=== PATIENT | female | born 1945 | race Caucasian/White ===

== ENCOUNTER 2018-06-25 22:52 | Inpatient (IN) | payer OTHER ==
[2018-06-25 23:11] VITALS: BMI 42.0
[2018-06-25] MEDS ORDERED: dilTIAZem HCL 50 MG/10 ML - 10 ML VIAL IVPUSH ONE (23:23)
--- NOTE | 2018-06-25 23:23 | PDOC ---
Attending Attestation - HPI HPI: 06/26/18 02:01 EXAM: Right lower extremity duplex venous ultrasound HISTORY: Right leg pain COMPARISON: None. FINDINGS: Negative for right lower extremity deep venous thrombosis Read By: Victor Hugo Duffy MD <Isamar Solomon - Last Filed: 06/26/18 02:01> - Resident Resident Name: Vanessa Soliman - ED Attending Attestation I have performed the following: I have examined & evaluated the patient, The case was reviewed & discussed with the resident, I agree w/resident's findings & plan, Exceptions are as noted - HPI HPI: 06/26/18 02:45 The patient is a 73 year old female with a significant past medical history of hypertension and pre-diabetes who presents to the emergency department with shortness of breath for about 1 hour. The patient reports some associated palpitations, lightheadedness and shortness of breath. She states that she has been sick for the past week with some respiratory symptoms. She denies any abdominal pain, history of blood clots, surgeries or recent immobilities. She denies any other symptoms. She denies any fever, chills, nausea, vomiting, diarrhea, constipation or urinary symptoms. She denies any chest pain, headache or dizziness. The patient denies any other complaints. - Physicial Exam PE: 06/26/18 02:46 agree with resident exam - Medical Decision Making 06/26/18 04:15 73-year-old female with a history of hypertension, diabetes presents emergency Department with 1 hour of shortness of breath, palpitations in the setting of recent upper respiratory symptoms. Patient found to be in new onset atrial fibrillation. Rate controlled with diltiazem 20mg IV followed by 30mg PO. Labs with neg trop, elevated BNP. CXR was cardiomegaly. US LE done due to complaint of unilateral leg pain, neg for DVT. Due to some desaturations to 90%, CTA was obtained to r/o PE. NEgative for large PE but consistent with CHF. Case discussed with admitting resident by Dr. Soliman, admitted to Dr. Bowen. Case discussed in detail with admitting physician including history, physical exam and ancillary studies. Admitting physician has assumed care for the patient, will follow all pending diagnostics and will complete the evaluation and treatment. <Jose Antonio Jordan - Last Filed: 06/26/18 04:17> Heart Score/ECG Review #1 06/26/18 02:46 Twelve-lead EKG was performed and reviewed by me. Atrial fibrillation with rapid ventricular response, rate 133. Normal axis. No ST elevations. <Jose Antonio Jordan - Last Filed: 06/26/18 04:17> Attestations - Attestations 06/26/18 02:02 Documentation prepared by Isamar Solomon, acting as medical record coder for Jose Antonio Jordan MD. <Isamar Solomon - Last Filed: 06/26/18 02:01>
--- NOTE | 2018-06-25 23:23 | PDOC ---
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 She has been feeling under the weather for the past week or so with URI symptoms, but about one hour ago she began having SOB unlike anything she has experienced before, along with pounding heart beat and lightheadedness. She notes exacerbated chronic RLE pain which she believed initially was from her osteoarthritis. She denies LOC, HERRMANN, f/c/n/v/d/c, dysuria , chest pain, cough, abdominal pain, back pain, etc. Past History - Past Medical History Allergies/Adverse Reactions: Allergies Allergy/AdvReac Type Severity Reaction Status Date / Time apple AdvReac Verified 08/26/15 04:38 pear AdvReac Verified 08/26/15 04:38 Home Medications: Ambulatory Orders Amlodipine Besylate [Norvasc -] 5 mg PO DAILY 06/26/18 Cyclobenzaprine HCl [Flexeril -] 10 mg PO HS 06/26/18 Escitalopram Oxalate [Lexapro -] 10 mg PO DAILY 06/26/18 Atenolol [Tenormin -] 100 mg PO DAILY #30 tablet 06/28/18 Ferrous Sulfate 325 mg PO DAILY #30 tablet 06/28/18 Furosemide [Lasix] 40 mg PO DAILY #30 tablet 06/28/18 Lisinopril [Prinivil] 2.5 mg PO DAILY #30 tablet 06/28/18 Miscellaneous Medical Supply [Outpatient Order] 1 each ASDIR #1 misc Warfarin Sodium [Coumadin] 5 mg PO DAILY #30 tablet 06/28/18 COPD: No Diabetes: Yes (NIDDM) HTN: Yes - Suicide/Smoking/Psychosocial Hx Smoking History: Never smoked Have you smoked in the past 12 months: No Information on smoking cessation initiated: No Hx Alcohol Use: No Drug/Substance Use Hx: No Substance Use Type: None Review of Systems - Review of Systems Able to Perform ROS?: Yes Comments:: 06/26/18 00:30 GEN: no fever, chills, malaise, generalized weakness, or weight change HEENT: no ear pain, sore throat, vision change, or eye pain CV: palpitations, lightheadedness, no chest pain, syncope, or edema RESP: SOB, no cough, no wheezing GI: no abdominal pain, nausea, vomiting, diarrhea, constipation, or white/black/ bloody stool : no dysuria, hematuria, incontinence, retention, bleeding, or discharge MSK: no neck/back pain, muscle weakness/pain, or joint swelling/pain NEURO: no headache, seizure, vertigo, numbness, tingling, or focal weakness PSYCH: no substance use, no behavior change SKIN: no jaundice, no rash ROS otherwise negative except as noted in HPI *Physical Exam - Vital Signs Last Vital Signs Temp Pulse Resp BP Pulse Ox 98.7 F 96 H 18 136/85 96 06/28/18 15:23 06/28/18 15:23 06/28/18 15:23 06/28/18 15:23 06/28/18 09:00 - Physical Exam Comments: 06/26/18 01:20 GENERAL: uncomfortable and a bit anxious appearing, morbidly obese, A/Ox4, mild distress, answers questions appropriately HEENT: PERRLA, EOMI, moist mucous membranes NECK/BACK: no midline ttp, no spinal stepoff or deformity, no hematoma, full ROM , neck supple CARDIOVASCULAR: irregularly irregular and tachycardic, normal S1S2, no MGR, strong peripheral pulses, capillary refill <2 seconds, extremities wwp, no edema LUNGS/RESPIRATORY: no respiratory distress, CTAB GI/ABDOMEN: symmetric [id number], normoactive BS, soft, no ttp, no midline pulsatile masses : no CVA tenderness EXTREMITIES: no muscle atrophy, no acute deformity, no edema SKIN: warm and dry, no pallor, no jaundice, no rash, no bruising, no skin breakdown, no cuts, no lesions NEUROLOGICAL: GCS 15, CN II-XII grossly intact, 5/5 strength proximally and distally, no facial droop Heart Score/ECG Review - ECG Intrepretation Comment:: A-fib with RVR, rate 133, normal axis, no ischemic ST-T changes Moderate Sedation - Procedure Monitoring Vital Signs: Procedure Monitoring Vital Signs Temperature 98.7 F 06/28/18 15:23 Pulse Rate 96 H 06/28/18 15:23 Respiratory Rate 18 06/28/18 15:23 Blood Pressure 136/85 06/28/18 15:23 O2 Sat by Pulse Oximetry (%) 96 06/28/18 09:00 ED Treatment Course - LABORATORY CBC & Chemistry Diagram: 06/28/18 05:30 06/28/18 05:30 - ADDITIONAL ORDERS Additional order review: 06/25/18 06:38 Urine Culture - Final Urine - Urine Clean Catch 06/26/18 02:50 RBC 3.45 L MCV 78.1 L MCHC 31.5 L RDW 18.7 H MPV 8.1 Neutrophils % 69.0 Lymphocytes % 21.6 Monocytes % 7.2 Eosinophils % 1.6 Basophils % 0.6 - RADIOLOGY Radiology Studies Ordered: Category Date Time Status CHEST X-RAY PORTABLE* [RAD] Stat Radiology 06/26/18 00:26 Completed DUPLEX VASCUL US-1 LEG [US] Stat Ultrasound 06/26/18 00:30 Completed - Medications Given in the ED: ED Medications Discontinued Medications Generic Name Dose Route Start Last Admin Trade Name Freq PRN Reason Stop Dose Admin Acetaminophen 1,000 mg 06/26/18 00:17 06/26/18 00:38 Ofirmev Injection - IVPB 06/26/18 00:18 1,000 mg ONCE ONE Administration Amlodipine Besylate 5 mg 06/27/18 10:00 06/27/18 10:11 Norvasc - PO 5 mg DAILY JOSE J Administration Apixaban 5 mg 06/26/18 13:45 06/26/18 17:10 Eliquis - PO Not Given BID JOSE J Atenolol 100 mg 06/26/18 13:30 06/28/18 10:28 Tenormin - PO 100 mg DAILY JOSE J Administration Benzocaine/Menthol 1 each 06/28/18 11:00 06/28/18 11:18 Cepacol Lozenge - MM 1 each PRN PRN Administration SORE THROAT Cyclobenzaprine HCl 10 mg 06/26/18 22:00 06/27/18 22:11 Flexeril - PO 10 mg HS JOSE J Administration Diltiazem HCl 20 mg 06/25/18 23:23 06/26/18 00:05 Cardizem Injection - IVPUSH 06/25/18 23:24 20 mg ONCE ONE Administration Diltiazem HCl 30 mg 06/26/18 00:18 06/26/18 00:38 Cardizem Injection - IVPUSH 06/26/18 00:19 Not Given ONCE ONE Diltiazem HCl 30 mg 06/26/18 00:20 06/26/18 00:38 Cardizem - PO 06/26/18 00:21 30 mg ONCE ONE Administration Enoxaparin Sodium 100 mg 06/26/18 06:15 06/26/18 06:55 Lovenox - SQ 100 mg Q12H JOSE J Administration Enoxaparin Sodium 100 mg 06/26/18 22:00 06/27/18 10:11 Lovenox - SQ 100 mg Q12H JOSE J Administration Enoxaparin Sodium 100 mg 06/27/18 22:00 06/28/18 10:28 Lovenox - SQ 100 mg BID JOSE J Administration Escitalopram Oxalate 10 mg 06/27/18 10:00 06/28/18 10:28 Lexapro - PO 10 mg DAILY JOSE J Administration Furosemide 20 mg 06/26/18 04:12 06/26/18 04:28 Lasix Injection - IVPUSH 06/26/18 04:13 20 mg ONCE ONE Administration Furosemide 40 mg 06/26/18 09:25 06/26/18 09:58 Lasix Injection - IVPUSH 06/26/18 09:26 40 mg ONCE ONE Administration Furosemide 40 mg 06/27/18 10:00 06/28/18 10:27 Lasix Injection - IVPUSH 40 mg DAILY JOSE J Administration Influenza Virus Vaccine Quadrival 60 mcg 06/27/18 10:00 06/27/18 10:43 Flulaval Quad 2085-4040 IM 06/27/18 10:01 60 mcg .ONCE ONE Administration Insulin Aspart 1 vial 06/26/18 07:00 06/28/18 18:00 Novolog Vial Sliding Scale - SQ Not Given [facility] Protocol Lisinopril 2.5 mg 06/27/18 13:45 06/27/18 14:23 Prinivil PO 06/27/18 13:46 2.5 mg ONCE ONE Administration Lisinopril 2.5 mg 06/28/18 10:00 06/28/18 10:28 Prinivil PO 2.5 mg DAILY JOSE J Administration Lorazepam 1 mg 06/26/18 04:15 06/26/18 04:28 Ativan - PO 06/26/18 04:16 1 mg ONCE ONE Administration Metoprolol Succinate 25 mg 06/26/18 10:00 06/26/18 10:58 Toprol Xl - PO 25 mg DAILY JOSE J Administration Potassium Chloride 40 meq 06/26/18 18:33 06/26/18 20:14 K-Dur - PO 06/26/18 18:34 40 meq ONCE ONE Administration Potassium Chloride 20 meq 06/28/18 11:30 06/28/18 11:19 K-Dur - PO 06/28/18 11:31 20 meq ONCE ONE Administration Sodium Chloride 1,000 ml 06/25/18 23:25 06/25/18 23:54 Normal Saline - IV 06/25/18 23:26 1,000 ml ONCE ONE Administration Warfarin Sodium 7.5 mg 06/26/18 18:00 06/26/18 17:10 Coumadin - PO 06/26/18 18:01 7.5 mg ONCE@1800 ONE Administration Warfarin Sodium 7.5 mg 06/27/18 18:00 06/27/18 17:53 Coumadin - PO 06/27/18 18:01 7.5 mg ONCE ONE Administration Warfarin Sodium 5 mg 06/28/18 18:14 06/28/18 18:36 Coumadin - PO 06/28/18 18:15 5 mg NOW ONE Administration Medical Decision Making - Medical Decision Making Adult female Pt p/w rapid palpitations. Initial Vital Signs Temp Pulse Resp BP Pulse Ox 98.2 F 112 H 25 H 177/79 H 96 06/25/18 23:04 06/25/18 23:04 06/25/18 23:04 06/25/18 23:04 06/25/18 23:04 Exam: As noted in Physical Exam section. DDX IBNLT: sinus tachycardia, tachyarrhythmia (e.g. most likely A-fib with RVR, AFL, or SVT), ischemia (ACS), structural heart condition, anemia, PE, infection , metabolic, thyroid condition, catecholamine surge, medication effect, etc. W/U ordered: Monitor EKG CXR Labs as noted below EKG: Reviewed; results as noted in ECG Review section. 06/26/18 00:07 20 mg diltiazem IVPUSH given, will re-assess the patient's HR and BP. 06/26/18 00:18 Pt's rate now in the 90s. 30 mg PO ordered. Vital Signs Temperature 98.2 F 06/25/18 23:04 Pulse Rate 100 H 06/26/18 00:25 Respiratory Rate 17 06/26/18 00:25 Blood Pressure 142/85 06/26/18 00:25 O2 Sat by Pulse Oximetry (%) 99 06/26/18 00:25 CXR: Cardiomegaly US/DUPLEX VASCUL US-1 LEG Right lower extremity pain. Shortness of breath. Right lower extremity Doppler venous ultrasound. Grayscale, pulsed Doppler and color Doppler interrogation of the right lower extremity deep venous system was performed. The right common femoral vein, superficial femoral vein, popliteal and posterior tibial vein were identified with a normal phasic waveform, adequate compressibility and adequate response to augmentation. Visualized portion of the greater saphenous and deep femoral vein are patent No Schultz's cyst is identified in the popliteal fossa. Impression: There is no evidence of deep venous thromboses in the right lower extremity. Note is made of soft tissue edema/swelling right leg A preliminary report was forwarded by the [facility] service, [employer] CT/CHEST CTA Chest CT angiography CLINICAL INFORMATION: evaluate for pulmonary embolism Multiplanar imaging was performed following the intravenous administration of nonionic contrast. No prior CT studies are available at this facility for direct comparison. There is no discrete embolus involving the central pulmonary arterial vasculature. Evaluation of the segmental and subsegmental branches is very limited due to respiratory motion artifact. Interlobular septal line thickening is seen within the lower lobes consistent with interstitial vascular congestion. Small right-sided and very small left- sided pleural effusions are seen. There is mild bilateral flank subcutaneous edema. Multichamber cardiomegaly is noted. Refluxed contrast is seen within the inferior vena cava and hepatic veins probably secondary to cardiac dysfunction. The main pulmonary artery is mildly dilated with a 3.2 cm diameter suggestive of possible increased pulmonary arterial pressure. Focal alveolar opacity is seen within the superior segment of the left lower lobe. Several nonspecific right upper lobe anterior and posterior segment noncalcified pulmonary nodules are noted the most prominent measuring 1.7 cm in diameter. There is borderline fusiform aneurysmal dilatation of the ascending aorta with a 4.[address] evidence of aortic dissection. Several mildly prominent mediastinal lymph nodes are seen which may be hyperplastic in nature. The visualized osseous structures demonstrate no obvious acute pathology. The exam partially images the upper abdomen. The spleen is mildly enlarged measuring 13.3 cm in length. The caudate lobe of the liver appears mildly prominent - ? possible cirrhosis. A 1.4 cm right renal upper pole hyperdense cortical cyst noted. IMPRESSION: No CT evidence of central pulmonary embolism. Evaluation of the peripheral vasculature is quite limited due to respiratory motion artifact. Interstitial pulmonary vascular congestion is noted with small bilateral pleural effusions, cardiomegaly, mild bilateral flank subcutaneous edema. Mildly dilated main pulmonary artery suggestive of increased pulmonary arterial pressure. There is focal opacity within the superior segment of the left lower lobe which may be on the basis of a small infiltrate versus localized edema. Clinical/laboratory correlation is suggested. Several nonspecific right upper lobe pulmonary nodules are noted the most prominent measuring 1.7 cm. Correlation with 2 month follow-up CT is suggested and comparison with prior CT studies if available from a different facility. Minimal to mild splenomegaly. Mild prominence of the caudate lobe of liver - ? possible cirrhosis. There is partial imaging of a 1.4 cm right renal upper pole hyperdense cyst. Correlate with 2 month follow-up CT. Laboratory Tests 06/25/18 06/25/18 06/25/18 23:36 23:36 23:36 WBC RBC Hgb Hct MCV MCH MCHC RDW Plt Count MPV Absolute Neuts (auto) Neutrophils % Lymphocytes % Monocytes % Eosinophils % Basophils % Nucleated RBC % PT with INR INR VBG pH 7.32 POC VBG pCO2 39.5 POC VBG pO2 34.0 Mixed VBG HCO3 19.6 Sodium 143 Potassium 3.9 Chloride 115 H Carbon Dioxide 20 L Anion Gap 8 BUN 23 H Creatinine 1.1 Creat Clearance w eGFR 48.42 Random Glucose 155 H Calcium 8.0 L Phosphorus 2.9 Magnesium 2.3 Total Bilirubin 0.4 AST 27 ALT 32 Alkaline Phosphatase 123 H Creatine Kinase 92 Troponin I < 0.02 B-Natriuretic Peptide 3562.8 H Total Protein 7.3 Albumin 3.2 L Blood Type Antibody Screen 06/25/18 06/26/18 06/26/18 23:36 02:50 02:50 WBC 6.5 RBC 3.45 L Hgb 8.5 L Hct 26.9 L MCV 78.1 L MCH 24.6 L MCHC 31.5 L RDW 18.7 H Plt Count 234 MPV 8.1 Absolute Neuts (auto) 4.5 Neutrophils % 69.0 Lymphocytes % 21.6 Monocytes % 7.2 Eosinophils % 1.6 Basophils % 0.6 Nucleated RBC % 0 PT with INR 13.00 INR 1.10 H VBG pH POC VBG pCO2 POC VBG pO2 Mixed VBG HCO3 Sodium Potassium Chloride Carbon Dioxide Anion Gap BUN Creatinine Creat Clearance w eGFR Random Glucose Calcium Phosphorus Magnesium Total Bilirubin AST ALT Alkaline Phosphatase Creatine Kinase Troponin I B-Natriuretic Peptide Total Protein Albumin Blood Type O NEGATIVE Antibody Screen Negative Reassessment: Patient states improved after Ativan, respirations calm. Vital Signs Temperature 98.2 F 06/25/18 23:04 Pulse Rate 112 H 06/26/18 04:29 Respiratory Rate 22 H 06/26/18 04:29 Blood Pressure 129/88 06/26/18 04:29 O2 Sat by Pulse Oximetry (%) 95 06/26/18 05:59 Lasix 20 mg IV push ordered. Patient still anxious and Ativan PO ordered. The Pt is unsafe for discharge at this time. She requires further hospital observation, workup, and treatment. Microblog sent to [facility] for admission. Blank Decision to Admit order is placed per ED protocol. Spoke with admitting team life assurance representative John Thomas. Patient admitted to Dr. Bowen, Tele. 07/08/18 22:29 *DC/Admit/Observation/Transfer Diagnosis at time of Disposition: Atrial fibrillation with rapid ventricular response CHF (congestive heart failure) Qualifiers: Heart failure type: unspecified Heart failure chronicity: unspecified Qualified Code(s): I50.9 - Heart failure, unspecified - Discharge Dispostion Disposition: HOME Condition at time of disposition: Improved Decision to Admit order: Yes - Prescriptions - Referrals - Patient Instructions - Post Discharge Activity
[2018-06-25] MEDS ORDERED: SODIUM CHLORIDE 0.9% 500 ML INFUS.BAG IV ONE (23:25)
[2018-06-25 23:52] LABS: VENOUS PC02 39.5 mmHg (38-52); VENOUS PH 7.32 (7.32-7.42)
[2018-06-26] MEDS ORDERED: ACETAMINOPHEN 1000 MG/100 ML VIAL (NON FORMULARY) IVPB ONE (00:17)
[2018-06-26] MEDS ORDERED: dilTIAZem HCL 50 MG/10 ML - 10 ML VIAL IVPUSH ONE (00:18)
[2018-06-26] MEDS ORDERED: dilTIAZem HCL 30 MG TABLET (FP) PO ONE (00:20)
[2018-06-26 02:10] LABS: ALBUMIN 3.2 g/dl (3.4-5.0); ALK PHOS 123 U/L (45-117); ANION GAP 8 MMOL/L (8-16); BILIRUBIN,TOTAL 0.4 mg/dL (0.2-1); BLOOD UREA NITROGEN 23 mg/dL (7-18); CHLORIDE 115 mmol/L (98-107); CO2 20 mmol/L (21-32); CREATININE 1.1 mg/dL (0.55-1.3); GLUCOSE,RANDOM 155 mg/dL (74-106); MAGNESIUM 2.3 mg/dL (1.8-2.4); PHOSPHOROUS 2.9 mg/dL (2.5-4.9); POTASSIUM 3.9 mmol/L (3.5-5.1); SGOT/AST 27 U/L (15-37); SGPT/ALT 32 U/L (13-61); SODIUM 143 mmol/L (136-145); TOT PROT 7.3 g/dl (6.4-8.2)
[2018-06-26 03:03] LABS: BASO % 0.6 % (0-2.0); EOS % 1.6 % (0-4.5); HEMATOCRIT 26.9 % (32.4-45.2); HEMOGLOBIN 8.5 GM/dL (10.7-15.3); LYMPH % 21.6 % (8-40); MCH 24.6 pg (25.7-33.7); MCHC 31.5 g/dl (32.0-36.0); MEAN CELL VOLUME 78.1 fl (80-96); MEAN PLT VOLUME 8.1 fl (7.5-11.1); MONO % 7.2 % (3.8-10.2); PLATELET COUNT 234 K/MM3 (134-434); RBC 3.45 M/mm3 (3.60-5.2); RDW 18.7 % (11.6-15.6); WHITE BLOOD COUNT 6.5 K/mm3 (4.0-10.0)
[2018-06-26 03:19] LABS: INR 1.1 (0.83-1.09)
[2018-06-26] MEDS ORDERED: FUROSEMIDE 40 MG/4 ML INJECTABLE VIAL IVPUSH ONE ×2 (04:12→09:25)
[2018-06-26] MEDS ORDERED: LORazepam 1 MG TABLET PO ONE (04:15)
--- NOTE | 2018-06-26 04:59 | PN ---
Teaching Attending Note Name of Resident: Ezra Thomas ATTENDING PHYSICIAN STATEMENT I saw and evaluated the patient. I reviewed the resident's note and discussed the case with the resident. I agree with the resident's findings and plan as documented. SUBJECTIVE: Seen and examined; please see resident note for further documentation. Briefly , this is a 73 y/o female presenting to the ER with lightheadedness, SOB, etc. Denies current chest pain. PMH ivolves preDM, obesity, HTN. She has never seen a cloth opener hand, no prior cardiac records at our facility, etc. She is found to be in afib with RVR with an elevated BNP that is likely rate related, though cardiomegaly is seen on imaging. She is found to have b/l pleural effusions R>L. 10 sys ROS done and negative aside from HPI PMH and PSH reviewed FH asked and noncontributory Socially no alcohol or drug abuse Medication list reviewed; reconciliation pending OBJECTIVE: VS, labs, imaging reviewed NAD, AAO, on 1L via NC Irregularly irregular and tachy to 100-110 on monitor, no lovely mgr Lungs with mild crackles, habitus limits exam, w/ sym exp NT ND +BS Trace LE edema, good pulses CN2-12 wnl, no fnd Normal mood, appropriate affect Labs show H/H 8/26 with MCV low at 78. VBG wnl. Coags reviewed. Cl 115, Co 20. BUN 23. Alk phos slightly elevated at 123 with BNP 3562. Imaging shows negative RLE US with CTA with contrast reflux ?CHF alongside R>L pleural effusion and R-sided lung nodules (larges 1.7cm) that radiology recommended be evaluated for malignancy EKG reviewed Tele reviewed Echo pending ASSESSMENT AND PLAN: Patient presents with SOB and lightheadedness found to have afib with RVR 1) Afib with RVR, elevated CV2 score -Seen on EKG, noted on exam. HR better controlled but still 100-110. -Given the fact that she has cardiomegaly and elevated BNP we would like to avoid a negative inotrope. Will do IV Metoprolol Tartrate and get HR <100 then titrate to PO. Can switch to long acting prior to DC. -Check echo to r/o valvular afib, etc. Check TSH. -Need for AC endorsed; 1mg/kg lovenox BID then convert to NOAC if no valve pathology noted -Consider CV consultation in the AM; monitor on telemetry 2) Microcytic Anemia -Check iron studies, retic count, FOBT 3) H/O HTN -Hold PO agents while titrating antiarrhythmics if can avoid 4) DM -Check A1c, SSI 5) Elevated BNP with +O2 requirement -Cardiomegaly noted; rate-related changes entirely possible. Reflux of contrast noted on CTA which is seen in CHF. -Got 1L fluid with a push of IV lasix in the ER; clouds picture especially given the elevated Cl, BUN with low CO2 now on BMP. Will repeat BMP now to revisit how her chemistry has settled then diurese if she will tolerate. -Lowest she gets on RA is 89-90%; should also consider CELENA eval as OP, etc. -Check echo to r/o cardiac dysfunction 6) R-lung nodules -Followup final report; prelim report recommended neoplastic workup 7) Pleural effusion -R>L; incidentally R-lung with aformentioned nodules. -Diurese per #5; consider other causes. Followup final report then revisit possibility of further studies 8) Mildly elevated Alk Phos -Only slightly over upper limit of normal which can be seen incidentally in geriatric population -Followup repeat LFTs, no need for urgent imaging, etc. Full Code
--- NOTE | 2018-06-26 05:40 | HP ---
<Paz Marcos - Last Filed: 06/26/18 07:00> CHIEF COMPLAINT: SOB PCP: None HISTORY OF PRESENT ILLNESS: 73 y/o F with PMHx of HTN, NIDDM presents with SOB. Patient is primarily northern irish speaking and the sample collector phone was used (Christel [phone]). Patient has had a URI for the past 2 weeks that presented with Cough productive of brown /yellow phlegm, Fever, chills and nausea. About 4-5 days ago, patient began to experience SOB with laying down. This is the first time she has experienced. Patient has increased the amount of pillows she uses to sleep and recently has noticed decreased exercise tolerance. Additionally has experienced Dizziness, lightheadedness, headache, chronic Right lower extremity pain. Denies any recent Chest pain, vomiting, diarrhea, constipation. Of note, patient has not seen her PCP in 3 years and is noncompliant with her medications. 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 Ambulation: Walker Residence: With a Friend Family History: HTN, [place], Parkinsons Allergies apple Adverse Reaction (Verified 08/26/15 04:38) pear Adverse Reaction (Verified 08/26/15 04:38) HOME MEDICATIONS: Home Medications Medication Instructions Recorded Atenolol [Tenormin -] 100 mg PO DAILY 08/26/15 Azithromycin [Zithromax Z-KING (5 250 mg PO ASDIR #6 tablet 08/26/15 DAYS) -] Cyclobenzaprine HCl [Flexeril -] 10 mg PO TID 08/26/15 Lisinopril/Hydrochlorothiazide 1 each PO DAILY 08/26/15 [Lisinopril-Hctz 20-25 mg Tab] Metformin HCl [Glucophage] 0 mg PO DAILY 08/26/15 Omeprazole Magnesium [Prilosec 0 mg PO DAILY 08/26/15 (OTC)] REVIEW OF SYSTEMS As per HPI PHYSICAL EXAMINATION Vital Signs - 24 hr 06/25/18 06/26/18 06/26/18 23:04 00:25 04:29 Temperature 98.2 F Pulse Rate 112 H Pulse Rate [ 100 H 112 H Apical] Respiratory 25 H 17 22 H Rate Blood Pressure 177/79 H Blood Pressure 142/85 129/88 [Left] O2 Sat by Pulse 96 99 98 Oximetry (%) GENERAL: A&Ox3, NAD, sitting with HOB elevated HEAD: NCAT EYES: PERRL, EOMI EARS, NOSE, THROAT: Oropharynx clear without exudates. Moist mucous membranes. NECK: Mild JVD LUNGS: Bibasilar Crackles, Upper Lobe rhonchi HEART: Tachycardic, Irregularlly Irregular, normal S1 and S2 without murmur ABDOMEN: Obese, Soft, nontender, not distended, + bowel sounds, no guarding EXTREMITIES: 2+ pulses, 1+ pitting edema NEUROLOGICAL: Cranial nerves II-XII intact. Normal speech. SKIN: Warm, dry. Lower extremity varicose veins with stasis dermatitis Laboratory Results - last 24 hr 06/25/18 06/25/18 06/25/18 23:36 23:36 23:36 WBC RBC Hgb Hct MCV MCH MCHC RDW Plt Count MPV Absolute Neuts (auto) Neutrophils % Lymphocytes % Monocytes % Eosinophils % Basophils % Nucleated RBC % PT with INR INR VBG pH 7.32 POC VBG pCO2 39.5 POC VBG pO2 34.0 Mixed VBG HCO3 19.6 Sodium 143 Potassium 3.9 Chloride 115 H Carbon Dioxide 20 L Anion Gap 8 BUN 23 H Creatinine 1.1 Creat Clearance w eGFR 48.42 Random Glucose 155 H Calcium 8.0 L Phosphorus 2.9 Magnesium 2.3 Total Bilirubin 0.4 AST 27 ALT 32 Alkaline Phosphatase 123 H Creatine Kinase 92 Troponin I < 0.02 B-Natriuretic Peptide 3562.8 H Total Protein 7.3 Albumin 3.2 L Blood Type Antibody Screen 06/25/18 06/26/18 06/26/18 23:36 02:50 02:50 WBC 6.5 RBC 3.45 L Hgb 8.5 L Hct 26.9 L MCV 78.1 L MCH 24.6 L MCHC 31.5 L RDW 18.7 H Plt Count 234 MPV 8.1 Absolute Neuts (auto) 4.5 Neutrophils % 69.0 Lymphocytes % 21.6 Monocytes % 7.2 Eosinophils % 1.6 Basophils % 0.6 Nucleated RBC % 0 PT with INR 13.00 INR 1.10 H VBG pH POC VBG pCO2 POC VBG pO2 Mixed VBG HCO3 Sodium Potassium Chloride Carbon Dioxide Anion Gap BUN Creatinine Creat Clearance w eGFR Random Glucose Calcium Phosphorus Magnesium Total Bilirubin AST ALT Alkaline Phosphatase Creatine Kinase Troponin I B-Natriuretic Peptide Total Protein Albumin Blood Type O NEGATIVE Antibody Screen Negative ASSESSMENT/PLAN: 73 y/o F with PMHx of HTN, NIDDM presents with SOB #SOB -Likely due to new onset Atrial Fibrillation -EKG: AFib with RVR, VR 133 -[id number] 3 -Lovenox 100mg Q12H (1mg/kg), Can switch to NOAC if Echo does not reveal valvular pathology -IV Lopressor 5mg Q4H PRN for HR > 100 -Continue home dose lisinopril 20mg -Echo, TSH Pending -Monitor on Tele -Cardiology (Dr. Resendiz) Consulted -Would likely benefit from [facility]LE[facility] Evaluation #Microcytic Anemia -Basic Iron Studies, Retic count #DM -A1c pending -ISS BGMs ACHS #Lung Nodules -Shown on Prelim Report; Further workup pending final report #FEN -PO FLuids -Lytes WNL -NPO #PPx -DVT: Lovenox Dispo: Admit to Tele, will need med-rec Visit type - Emergency Visit Emergency Visit: Yes ED Registration Date: 06/26/18 Care time: The patient presented to the Emergency Department on the above date and was hospitalized for further evaluation of their emergent condition. - New Patient This patient is new to me today: Yes Date on this admission: 06/26/18 - Critical Care Critical Care patient: No <Loy Bowen - Last Filed: 07/08/18 19:44> Seen and examined;agree with all the above aside form as edited by me in my own note. Thank you. Was present for all vital parts of encounter; plan discussed with me. Agree with above as documented by the resident.
[2018-06-26] MEDS ORDERED: ENOXAPARIN NA (PORCINE) 100 MG/1 ML DISP.SYRIN SQ SCH ×3 (06:15→22:00)
[2018-06-26] MEDS ORDERED: METOPROLOL TARTRATE 5 MG/5 ML VIAL IVPUSH PRN ×2 (06:36→13:11)
[2018-06-26 06:53] LABS: URINE APPEARANCE CLEAR; URINE BILIRUBIN NEGATIVE (<2.0 mg/dL); URINE COLOR COLORLESS; URINE GLUCOSE (UA) NEGATIVE (NEGATIVE); URINE KETONE NEGATIVE (NEGATIVE); URINE LEUK ESTERASE NEGATIVE (NEGATIVE); URINE NITRITE NEGATIVE (NEGATIVE); URINE PROTEIN NEGATIVE (NEGATIVE); URINE UROBILINOGEN NEGATIVE mg/dL (0.2-1.0)
[2018-06-26] MEDS: INSULIN SLIDING SCALE (NOVOLOG) 1 VIAL SQ SCH ×4 (07:01→22:43)
[2018-06-26 09:01] LABS: BASO % 0.7 % (0-2.0); EOS % 1.3 % (0-4.5); HEMATOCRIT 26.8 % (32.4-45.2); HEMOGLOBIN 7.9 GM/dL (10.7-15.3); LYMPH % 24.4 % (8-40); MCH 22.9 pg (25.7-33.7); MCHC 29.5 g/dl (32.0-36.0); MEAN CELL VOLUME 77.4 fl (80-96); MEAN PLT VOLUME 7.7 fl (7.5-11.1); MONO % 6.5 % (3.8-10.2); NEUT % 67.1 % (42.8-82.8); PLATELET COUNT 222 K/MM3 (134-434); RBC 3.46 M/mm3 (3.60-5.2); RDW 18.4 % (11.6-15.6); RETICULOCYTES 3.18 % (0.5-1.5); WHITE BLOOD COUNT 7.1 K/mm3 (4.0-10.0)
[2018-06-26 09:06] LABS: ALBUMIN 3.1 g/dl (3.4-5.0); ALK PHOS 114 U/L (45-117); ANION GAP 10 MMOL/L (8-16); BILIRUBIN,TOTAL 0.6 mg/dL (0.2-1); BLOOD UREA NITROGEN 20 mg/dL (7-18); CALCIUM 7.4 mg/dL (8.5-10.1); CHLORIDE 113 mmol/L (98-107); CHOLESTEROL 139 mg/dL (50-200); CO2 22 mmol/L (21-32); CREATININE 0.9 mg/dL (0.55-1.3); GLUCOSE,RANDOM 112 mg/dL (74-106); HDL CHOLESTEROL 31 mg/dL (40-60); PHOSPHOROUS 3.2 mg/dL (2.5-4.9); POTASSIUM 3.4 mmol/L (3.5-5.1); SGOT/AST 22 U/L (15-37); SGPT/ALT 29 U/L (13-61); SODIUM 144 mmol/L (136-145); TOT PROT 6.9 g/dl (6.4-8.2); TRIGLYCERIDES 133 mg/dL (0-150)
[2018-06-26] MEDS ORDERED: LISINOPRIL 20 MG TABLET (FP) PO SCH (10:00)
[2018-06-26] MEDS ORDERED: metoPROLOL SUCCINATE 25 MG TAB.SR.24H (FP) PO SCH (10:00)
--- NOTE | 2018-06-26 10:57 | EKG ---
Test Reason : Blood Pressure : / mmHG Vent. Rate : 133 BPM Atrial Rate : 113 BPM P-R Int : 000 ms QRS Dur : 082 ms QT Int : 320 ms P-R-T Axes : 000 -07 043 degrees QTc Int : 476 ms ATRIAL FIBRILLATION WITH RAPID VENTRICULAR RESPONSE POSSIBLE ANTERIOR INFARCT , AGE UNDETERMINED ABNORMAL ECG NO PREVIOUS ECGS AVAILABLE Confirmed by CIRO MCKEON MD ([id number]) on 06/26/2018 10:57:22 AM Referred By: Confirmed By:CIRO MCKEON MD
--- NOTE | 2018-06-26 13:06 | PN ---
Teaching Attending Note Name of Resident: Luda Taveras ATTENDING PHYSICIAN STATEMENT I saw and evaluated the patient. I reviewed the resident's note and discussed the case with the resident. I agree with the resident's findings and plan as documented. SUBJECTIVE: No fever or chills. her breathing is better . denies CP . family at bed side concur . no hx of GI / or other bleed. OBJECTIVE: NAD, Awake, cooperative. tachypnic CV: irreg irreg. HR 100-110. no MRG . JVD + Lungs: b/l crackles half way down. Abd: sofr, NT, ND , NL BS , obese Ext: 1+ edema , no erythema . ASSESSMENT AND PLAN: 73 y/o lady with h/o pre-diabetes, HTN and obesity, with no medical care x 3 years , who presented with SOB and was found to have A fib with RVR ansd acute CHF . 1- A fib with RVR: trigger is unclear. no signs of infection . NL TSH. No PE onCTA . replete K - echo r/o valvular abn - check flu swab - received cardizem in ER , but will start po toprol due to signs of heart failure. keep PRN lopressor - CHADSVASC 4 , need AC. risk of bleeding with AC and risk of stroke without AC were discussed with family and patient. they agreed with AC. options of AC were also discusses , but patient has no insurance and can't afford NOACS or Lovenox. they agreed to coumadin will start bridging . give coumadin tonight 2- Acute CHF :likely systolic due to A fib. but will get Echo - give 40 of lasix. - will assess tomorrow and decide on IV vs PO lasix - hold home lisinopril for now to give room for rate control - BB as above 3- microcytic anemia: no h/o GI/ bleeding - check iron studies - stool OB 4- HTN: monitor on toprol - lisinopril if BP remains stable pending rate control 5- Pre-DM : A1c of 6.3 6- Pulm nodules. pulm for follow up adn bx as out pt 7- renal cyst on CT. monitor HLOC . d/w pt and her family at bed side
--- NOTE | 2018-06-26 13:23 | CON.CARD ---
Consult Consult Specialty:: Cardiology Reason for Consultation:: af chf - History of Present Illness History of Present Illness: 73 y/o F with PMHx of HTN, NIDDM presents with SOB. Patient is primarily libyan speaking and the manager of merchandising phone was used (Christel [phone]). Patient has had a URI for the past 2 weeks that presented with Cough productive of brown /yellow phlegm, Fever, chills and nausea. About 4-5 days ago, patient began to experience SOB with laying down. This is the first time she has experienced. Patient has increased the amount of pillows she uses to sleep and recently has noticed decreased exercise tolerance. Additionally has experienced Dizziness, lightheadedness, headache, chronic Right lower extremity pain. Denies any recent Chest pain, vomiting, diarrhea, constipation. Of note, patient has not seen her PCP in 3 years and is noncompliant with her medications. ER course was notable for: (1) Cardizem 20mg IV, 30mg PO (2) BNP 3562.8 (3) CTA, RLE Duplex - History Source History Provided By: Patient, Medical Record - Past Medical History Cardio/Vascular: Yes: AFIB, CHF - Alcohol/Substance Use Hx Alcohol Use: No - Smoking History Smoking history: Never smoked Have you smoked in the past 12 months: No Home Medications - Allergies Allergies/Adverse Reactions: Allergies Allergy/AdvReac Type Severity Reaction Status Date / Time apple AdvReac Verified 08/26/15 04:38 pear AdvReac Verified 08/26/15 04:38 - Home Medications Home Medications: Ambulatory Orders Atenolol [Tenormin -] 100 mg PO DAILY 08/26/15 Azithromycin [Zithromax Z-KING (5 DAYS) -] 250 mg PO ASDIR #6 tablet 08/26/15 Cyclobenzaprine HCl [Flexeril -] 10 mg PO TID 08/26/15 Lisinopril/Hydrochlorothiazide [Lisinopril-Hctz 20-25 mg Tab] 1 each PO DAILY Metformin HCl [Glucophage] 0 mg PO DAILY 08/26/15 Omeprazole Magnesium [Prilosec (OTC)] 0 mg PO DAILY 08/26/15 Review of Systems - Review of Systems Constitutional: reports: No Symptoms Eyes: reports: No Symptoms HENT: reports: No Symptoms Neck: reports: No Symptoms Cardiovascular: reports: Shortness of Breath Gastrointestinal: reports: No Symptoms Genitourinary: reports: No Symptoms Breasts: reports: No Symptoms Reported Musculoskeletal: reports: No Symptoms Integumentary: reports: No Symptoms Neurological: reports: No Symptoms Endocrine: reports: No Symptoms Hematology/Lymphatic: reports: No Symptoms Psychiatric: reports: No Symptoms Vital Signs: Vital Signs Temperature 98.2 F 06/25/18 23:04 Pulse Rate 112 H 06/26/18 04:29 Respiratory Rate 22 H 06/26/18 04:29 Blood Pressure 129/88 06/26/18 04:29 O2 Sat by Pulse Oximetry (%) 95 06/26/18 05:59 Constitutional: Yes: Well Nourished, No Distress, Calm Eyes: Yes: WNL, Conjunctiva Clear, EOM Intact HENT: Yes: WNL, Atraumatic, Normocephalic Neck: Yes: WNL, Supple, Trachea Midline Respiratory: Yes: Rales Gastrointestinal: Yes: WNL, Normal Bowel Sounds Renal/: Yes: WNL Cardiovascular: Yes: Pulse Irregular Heart Sounds: Yes: S1, S2 Musculoskeletal: Yes: WNL Extremities: Yes: WNL Integumentary: Yes: WNL Neurological: Yes: WNL, Alert, Oriented ...Motor Strength: WNL Psychiatric: Yes: WNL, Alert, Oriented - Other Data Labs, Other Data: CBC, BMP 06/26/18 08:21 06/26/18 08:21 INR, PTT INR 1.10 (0.83-1.09) H 06/26/18 02:50 Troponin, BNP 06/25/18 06/25/18 23:36 23:36 Troponin I < 0.02 B-Natriuretic Peptide 3562.8 H Troponin, BNP 06/25/18 06/25/18 23:36 23:36 Troponin I < 0.02 B-Natriuretic Peptide 3562.8 H Imaging - Results Chest X-ray: Image Reviewed (cm , chf) EKG: Image Reviewed (af rvr) Problem List - Problems (1) Atrial fibrillation with rapid ventricular response Code(s): I48.91 - UNSPECIFIED ATRIAL FIBRILLATION (2) CHF (congestive heart failure) Code(s): I50.9 - HEART FAILURE, UNSPECIFIED Qualifiers: Heart failure type: unspecified Heart failure chronicity: unspecified Qualified Code(s): I50.9 - Heart failure, unspecified (3) Cough Code(s): R05 - COUGH (4) Upper respiratory infection Code(s): J06.9 - ACUTE UPPER RESPIRATORY INFECTION, UNSPECIFIED Assessment/Plan af rvr CHADSVASC2 score 6 ch dm echo nl ef severe MR mild pulm htn plan iv Lasix echo rate control with aternolol ac Lovenox may use NOACs instead of Coumadine e.g. Eliquis 5 BID
--- NOTE | 2018-06-26 13:40 | ECHO ---
Name: JOHN PICKERING Exam:Adult Echocardiogram Study Date: 06/26/2018 10:08 AM Age: 73 yrs Reason For Study: A-Fib Height: 60 in Weight: 215 lb BSA: 1.9 m2 MMode/2D Measurements & Calculations IVSd: 0.92 cm Ao root diam: 3.5 cm LVIDd: 5.1 cm LA dimension: 3.0 cm LVIDs: 2.8 cm LVPWd: 1.1 cm EDV(Teich): 123.9 ml LAV (MOD-bp): 88.7 ml ESV(Teich): 30.8 ml Doppler Measurements & Calculations MV E max alex: 115.0 cm/sec AI P1/2t: 674.9 msec MV dec time: 0.14 sec AI max alex: 278.3 cm/sec MR max alex: 536.0 cm/sec AI max P.0 mmHg MR max P.9 mmHg AI dec slope: 120.8 cm/sec2 TR max alex: 296.2 cm/sec Med Peak E' Alex: 12.0 cm/sec TR max P.1 mmHg Med E/e': 9.6 Lat Peak E' Alex: 11.6 cm/sec Lat E/e': 9.9 PI Vmax: 214.5 cm/sec Procedure A two-dimensional transthoracic echocardiogram with color flow and Doppler was performed. Left Ventricle The left ventricular size, thickness and function are normal. The left ventricular ejection fraction is normal. The left ventricular wall motion is normal. Right Ventricle The right ventricle is normal in size and function. Atria Normal left and right atrial size and function. Mitral Valve There is mild mitral valve thickening. There is no mitral valve stenosis. There is moderate to severe mitral regurgitation. Tricuspid Valve There is mild tricuspid valve thickening. There is no tricuspid stenosis. There is mild tricuspid regurgitation. Right ventricular systolic pressure is elevated at 40-50mmHg. Aortic Valve There is mild aortic valve thickening. There is mild aortic sclerosis.;. No hemodynamically significa nt valvular aortic stenosis. Moderate aortic regurgitation. Pulmonic Valve The pulmonic valve is not well visualized. There is no pulmonic valvular stenosis. Mild pulmonic valv ular regurgitation. Great Vessels The aortic root is normal size. Pericardium/Pleura There is no pericardial effusion. Interpretation Summary The left ventricular size, thickness and function are normal The left ventricular ejection fraction is normal. The left ventricular wall motion is normal. There is mild aortic valve thickening. There is mild aortic sclerosis.; Moderate aortic regurgitation. There is mild tricuspid regurgitation. Right ventricular systolic pressure is elevated at 40-50mmHg. There is moderate to severe mitral regurgitation. MD Dexter Resendiz 06/26/2018 01:40 PM
[2018-06-26] MEDS ORDERED: APIXABAN 5 MG TABLET PO SCH (13:45)
[2018-06-26] MEDS: ATENOLOL 50 MG TABLET (FP) PO SCH (15:10)
[2018-06-26] MEDS ORDERED: ATENOLOL 25 MG TABLET (FP) ONE (16:55)
[2018-06-26] MEDS ORDERED: WARFARIN NA 5 MG TABLET (UD) ONE (16:56)
[2018-06-26] MEDS ORDERED: WARFARIN NA 7.5 MG TABLET (FP) PO ONE (18:00)
--- NOTE | 2018-06-26 18:12 | PN ---
Physical Exam: SUBJECTIVE: Patient seen and examined at bedside this morning. Patient breathing heavily on 3L NC, could speak in sentences. Patient is a 73 year old female who presented with shortness of breath the past 4 days. Patient reported she has been having the flu the past 2-3 weeks, with productive cough, fever and chills, and in the last 4 days noted worsening dyspnea, with difficulty ambulating because she gets SOB. Patient also reported intermittent headaches and dizziness. She denies any chest pain, vomiting, palpitations, abdominal pain, diarrhea, urinary symptoms. OBJECTIVE: Vital Signs Period Temp Pulse Resp BP Sys/Mckeon Pulse Ox Last 24 Hr 98.2 F-98.7 F 100-112 16-25 128-177/79-90 95-99 GENERAL: The patient is awake, alert, and fully oriented, on 3L NC. HEAD: Normal with no signs of trauma. EYES: PERRLA, EOMI, sclera anicteric, conjunctiva clear. ENT: Ears normal, nares patent, oropharynx clear without exudates, moist mucous membranes. NECK: Soft, supple, trachea midline. LUNGS: +Crackles on bilateral bases HEART: Tachycardic, S1, S2 without murmur, rub or gallop. ABDOMEN: Soft, nontender, nondistended, normoactive bowel sounds. EXTREMITIES: 2+ pulses, warm, well-perfused, no edema. SKIN: Warm, dry, normal turgor, no rashes or lesions noted Laboratory Results - last 24 hr 06/25/18 06/25/18 06/25/18 06:38 23:36 23:36 WBC RBC Hgb Hct MCV MCH MCHC RDW Plt Count MPV Absolute Neuts (auto) Neutrophils % Lymphocytes % Monocytes % Eosinophils % Basophils % Nucleated RBC % Retic Count PT with INR INR VBG pH 7.32 POC VBG pCO2 39.5 POC VBG pO2 34.0 Mixed VBG HCO3 19.6 Sodium 143 Potassium 3.9 Chloride 115 H Carbon Dioxide 20 L Anion Gap 8 BUN 23 H Creatinine 1.1 Creat Clearance w eGFR 48.42 POC Glucometer Random Glucose 155 H Hemoglobin A1c % Calcium 8.0 L Phosphorus 2.9 Magnesium 2.3 Ferritin Total Bilirubin 0.4 AST 27 ALT 32 Alkaline Phosphatase 123 H Creatine Kinase 92 Troponin I < 0.02 B-Natriuretic Peptide Total Protein 7.3 Albumin 3.2 L Triglycerides Cholesterol Total LDL Cholesterol HDL Cholesterol TSH Urine Color Colorless Urine Appearance Clear Urine pH 6.0 Ur Specific Mcintyre 1.009 L Urine Protein Negative Urine Glucose (UA) Negative Urine Ketones Negative Urine Blood Negative Urine Nitrite Negative Urine Bilirubin Negative Urine Urobilinogen Negative Ur Leukocyte Esterase Negative Blood Type Antibody Screen 06/25/18 06/25/18 06/26/18 23:36 23:36 02:50 WBC 6.5 RBC 3.45 L Hgb 8.5 L Hct 26.9 L MCV 78.1 L MCH 24.6 L MCHC 31.5 L RDW 18.7 H Plt Count 234 MPV 8.1 Absolute Neuts (auto) 4.5 Neutrophils % 69.0 Lymphocytes % 21.6 Monocytes % 7.2 Eosinophils % 1.6 Basophils % 0.6 Nucleated RBC % 0 Retic Count PT with INR INR VBG pH POC VBG pCO2 POC VBG pO2 Mixed VBG HCO3 Sodium Potassium Chloride Carbon Dioxide Anion Gap BUN Creatinine Creat Clearance w eGFR POC Glucometer Random Glucose Hemoglobin A1c % Calcium Phosphorus Magnesium Ferritin Total Bilirubin AST ALT Alkaline Phosphatase Creatine Kinase Troponin I B-Natriuretic Peptide 3562.8 H Total Protein Albumin Triglycerides Cholesterol Total LDL Cholesterol HDL Cholesterol TSH Urine Color Urine Appearance Urine pH Ur Specific Mcintyre Urine Protein Urine Glucose (UA) Urine Ketones Urine Blood Urine Nitrite Urine Bilirubin Urine Urobilinogen Ur Leukocyte Esterase Blood Type O NEGATIVE Antibody Screen Negative 06/26/18 06/26/18 06/26/18 02:50 03:00 08:21 WBC 7.1 RBC 3.46 L Hgb 7.9 L Hct 26.8 L MCV 77.4 L MCH 22.9 L MCHC 29.5 L RDW 18.4 H Plt Count 222 MPV 7.7 Absolute Neuts (auto) 4.8 Neutrophils % 67.1 Lymphocytes % 24.4 Monocytes % 6.5 Eosinophils % 1.3 Basophils % 0.7 Nucleated RBC % 0 Retic Count 3.18 H PT with INR 13.00 INR 1.10 H VBG pH POC VBG pCO2 POC VBG pO2 Mixed VBG HCO3 Sodium Potassium Chloride Carbon Dioxide Anion Gap BUN Creatinine Creat Clearance w eGFR POC Glucometer Random Glucose Hemoglobin A1c % Calcium Phosphorus Magnesium Ferritin Total Bilirubin AST ALT Alkaline Phosphatase Creatine Kinase Troponin I B-Natriuretic Peptide Total Protein Albumin Triglycerides Cholesterol Total LDL Cholesterol HDL Cholesterol TSH Urine Color Urine Appearance Urine pH Ur Specific Mcintyre Urine Protein Urine Glucose (UA) Urine Ketones Urine Blood Urine Nitrite Urine Bilirubin Urine Urobilinogen Ur Leukocyte Esterase Blood Type O NEGATIVE Antibody Screen 06/26/18 06/26/18 06/26/18 08:21 08:21 08:21 WBC RBC Hgb Hct MCV MCH MCHC RDW Plt Count MPV Absolute Neuts (auto) Neutrophils % Lymphocytes % Monocytes % Eosinophils % Basophils % Nucleated RBC % Retic Count PT with INR INR VBG pH POC VBG pCO2 POC VBG pO2 Mixed VBG HCO3 Sodium 144 Potassium 3.4 L Chloride 113 H Carbon Dioxide 22 Anion Gap 10 BUN 20 H Creatinine 0.9 Creat Clearance w eGFR > 60 POC Glucometer Random Glucose 112 H Hemoglobin A1c % 6.3 Calcium 7.4 L Phosphorus 3.2 Magnesium 2.0 Ferritin 11.6 Total Bilirubin 0.6 AST 22 ALT 29 Alkaline Phosphatase 114 Creatine Kinase Troponin I B-Natriuretic Peptide Total Protein 6.9 Albumin 3.1 L Triglycerides 133 Cholesterol 139 Total LDL Cholesterol 90 HDL Cholesterol 31 L TSH 2.19 Urine Color Urine Appearance Urine pH Ur Specific Mcintyre Urine Protein Urine Glucose (UA) Urine Ketones Urine Blood Urine Nitrite Urine Bilirubin Urine Urobilinogen Ur Leukocyte Esterase Blood Type Antibody Screen 06/26/18 06/26/18 12:48 16:33 WBC RBC Hgb Hct MCV MCH MCHC RDW Plt Count MPV Absolute Neuts (auto) Neutrophils % Lymphocytes % Monocytes % Eosinophils % Basophils % Nucleated RBC % Retic Count PT with INR INR VBG pH POC VBG pCO2 POC VBG pO2 Mixed VBG HCO3 Sodium Potassium Chloride Carbon Dioxide Anion Gap BUN Creatinine Creat Clearance w eGFR POC Glucometer 151.50114 114.49858 Random Glucose Hemoglobin A1c % Calcium Phosphorus Magnesium Ferritin Total Bilirubin AST ALT Alkaline Phosphatase Creatine Kinase Troponin I B-Natriuretic Peptide Total Protein Albumin Triglycerides Cholesterol Total LDL Cholesterol HDL Cholesterol TSH Urine Color Urine Appearance Urine pH Ur Specific Mcintyre Urine Protein Urine Glucose (UA) Urine Ketones Urine Blood Urine Nitrite Urine Bilirubin Urine Urobilinogen Ur Leukocyte Esterase Blood Type Antibody Screen Active Medications Generic Name Dose Route Start Last Admin Trade Name Freq PRN Reason Stop Dose Admin Atenolol 100 mg 06/26/18 13:30 06/26/18 15:10 Tenormin - PO 100 mg DAILY JOSE J Administration Enoxaparin Sodium 100 mg 06/26/18 22:00 Lovenox - SQ Q12H JOSE J Furosemide 40 mg 06/27/18 10:00 Lasix Injection - IVPUSH DAILY [facility] Insulin Aspart 1 vial 06/26/18 07:00 06/26/18 17:10 Novolog Vial Sliding Scale - SQ Not Given ACHS [facility] Protocol Metoprolol Tartrate 5 mg 06/26/18 13:11 Lopressor Injection - IVPUSH Q4H PRN HYPERTENSION ASSESSMENT/PLAN: Patient is a 73 year old female with past medical history of HTN, NIDDM, presented with shortness of breath the past 4 days. #SOB likely 2/2 CHF exacerbation -CTA: insterstitial pulmonary vascular congestion with small bilateral pleural effusions, cardiomegaly, mild bilateral flank subcutaneous edema. -Echo - LV size, thickness, function is normal. LV EF normal. LV wall motion normal. Mild aortic valve thickening. Mild . Moderate AR. Mild TR. Right ventricular systolic pressure is elevated at 40-50mmHg. Moderate to severe MR. -Cardiology (Dr. Resendiz) consulted. Recommendations appreciated. -IV Lasix 40mg daily -I&O, daily weights #Atrial fibrillation with RVR: unclear etiology -CTA - no evidence of pulmonary embolism. -TSH wnl -Flu swab - negative -Echo done -Cardiology (Dr. Resendiz) consulted. Recommendations appreciated. -Continue home Atenolol 100mg daily. -Lopressor IV 4mg PRN for tachycardia. Will continue to monitor. -CHADSVASc 6. Would need to start AC. -Options discussed with patient. Because patient has no insurance, declined NOACs and agreed to start with Coumadin. -Will start bridging to Coumadin -INR in the morning. #Microcytic Anemia likely 2/2 Iron Deficiency Anemia -Retic ct 3.18 -Will continue to monitor H/H -Iron studies, stool occult -Will give iron supplements upon discharge #DM -HbA1c: 6.3 -Insulin sliding scale implemented -BGM ACHS #HTN:chronic -Continue home Atenolol 100mg daily and Amlodipine 5mg daily -Will hold Lisinopril/HCTZ -Will continue to monitor #Pulmonary nodules -CT: Several nonspecific right upper lobe pulmonary nodules are noted measuring 1.7cm. -Correlation with 2month follow-up CT suggested -Should follow-up as outpatient #Renal cyst -CT: partial imaging of 1.4cm right renal upper pole hyperdense cyst. -Correlate with 2 month follow-up -Should folow-up as oupatient. #FEN -Not on any standing fluids -electrolytes wnl, routine bmp monitoring -Sodium controlled diet #Prophylaxis -Lovenox 100mg sq BID -Will bridge to Coumadin 7.5mg #Disposition -full code -admit to tele Visit type - Emergency Visit Emergency Visit: Yes ED Registration Date: 06/26/18 Care time: The patient presented to the Emergency Department on the above date and was hospitalized for further evaluation of their emergent condition. - New Patient This patient is new to me today: Yes Date on this admission: 06/26/18 - Critical Care Critical Care patient: No
[2018-06-26] MEDS ORDERED: POTASSIUM CHLORIDE TABS 20 MEQ TABLET.ER (FP) PO ONE (18:33)
[2018-06-26] MEDS: ENOXAPARIN NA (PORCINE) 100 MG/1 ML DISP.SYRIN SQ SCH (22:43)
[2018-06-26] MEDS: CYCLOBENZAPRINE HCL 10 MG TABLET (FP) PO SCH (22:43)
[2018-06-27] MEDS: INSULIN SLIDING SCALE (NOVOLOG) 1 VIAL SQ SCH ×4 (06:59→22:11)
[2018-06-27 07:37] LABS: BASO % 0.6 % (0-2.0); EOS % 1.3 % (0-4.5); HEMATOCRIT 27.5 % (32.4-45.2); HEMOGLOBIN 8.2 GM/dL (10.7-15.3); LYMPH % 25.1 % (8-40); MCH 23.3 pg (25.7-33.7); MCHC 29.9 g/dl (32.0-36.0); MEAN CELL VOLUME 77.8 fl (80-96); MEAN PLT VOLUME 7.8 fl (7.5-11.1); MONO % 5.8 % (3.8-10.2); NEUT % 67.2 % (42.8-82.8); PLATELET COUNT 237 K/MM3 (134-434); RBC 3.54 M/mm3 (3.60-5.2); RDW 18.7 % (11.6-15.6); WHITE BLOOD COUNT 8.1 K/mm3 (4.0-10.0)
[2018-06-27 07:51] LABS: INR 1.34 (0.83-1.09); PROTHROMBIN TIME (PATIENT) 15.8 SEC (9.7-13.0)
[2018-06-27 07:58] LABS: ALK PHOS 109 U/L (45-117); ANION GAP 5 MMOL/L (8-16); BILIRUBIN,TOTAL 0.6 mg/dL (0.2-1); BLOOD UREA NITROGEN 23 mg/dL (7-18); CALCIUM 8.1 mg/dL (8.5-10.1); CHLORIDE 110 mmol/L (98-107); CO2 26 mmol/L (21-32); GLUCOSE,RANDOM 111 mg/dL (74-106); MAGNESIUM 2.1 mg/dL (1.8-2.4); PHOSPHOROUS 3.4 mg/dL (2.5-4.9); POTASSIUM 4.1 mmol/L (3.5-5.1); SGOT/AST 23 U/L (15-37); SGPT/ALT 28 U/L (13-61); SODIUM 141 mmol/L (136-145); TOT PROT 7.1 g/dl (6.4-8.2)
[2018-06-27 08:07] LABS: SERUM IRON SATURATION 8 % (15-55); TOTAL IRON BINDING CAPACITY 339 ug/dL (250-450); UIBC 313 ug/dL (118-369)
[2018-06-27] MEDS ORDERED: FLU VACCINE QUAD 60 MCG/0.5 ML (MDV 18-19) IM ONE (10:00)
[2018-06-27] MEDS ORDERED: amLODIPine BESYLATE 5 MG TABLET (FP) PO SCH (10:00)
[2018-06-27] MEDS: ENOXAPARIN NA (PORCINE) 100 MG/1 ML DISP.SYRIN SQ SCH ×2 (10:11→22:11)
[2018-06-27] MEDS: ESCITALOPRAM OXALATE 10 MG TABLET (FP) PO SCH (10:11)
[2018-06-27] MEDS: FUROSEMIDE 40 MG/4 ML INJECTABLE VIAL IVPUSH SCH (10:11)
[2018-06-27] MEDS: ATENOLOL 50 MG TABLET (FP) PO SCH (10:11)
--- NOTE | 2018-06-27 12:38 | PN ---
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 She has been feeling under the weather for the past week or so with URI symptoms, but about one hour ago she began having SOB unlike anything she has experienced before, along with pounding heart beat and lightheadedness. She notes exacerbated chronic RLE pain which she believed initially was from her osteoarthritis. She denies LOC, HERRMANN, f/c/n/v/d/c, dysuria , chest pain, cough, abdominal pain, back pain. - Current Medication List Current Medications: Active Medications Amlodipine Besylate (Norvasc -) 5 mg PO DAILY [facility] Last Admin: 06/27/18 10:11 Dose: 5 mg Atenolol (Tenormin -) 100 mg PO DAILY [facility] Last Admin: 06/27/18 10:11 Dose: 100 mg Cyclobenzaprine HCl (Flexeril -) 10 mg PO HS [facility] Last Admin: 06/26/18 22:43 Dose: 10 mg Enoxaparin Sodium (Lovenox -) 100 mg SQ Q12H [facility] Last Admin: 06/27/18 10:11 Dose: 100 mg Escitalopram Oxalate (Lexapro -) 10 mg PO DAILY [facility] Last Admin: 06/27/18 10:11 Dose: 10 mg Furosemide (Lasix Injection -) 40 mg IVPUSH DAILY [facility] Last Admin: 06/27/18 10:11 Dose: 40 mg Insulin Aspart (Novolog Vial Sliding Scale -) 1 vial SQ ACHS [facility]; Protocol Last Admin: 06/27/18 12:19 Dose: Not Given Metoprolol Tartrate (Lopressor Injection -) 5 mg IVPUSH Q4H PRN PRN Reason: HYPERTENSION Warfarin Sodium (Coumadin -) 7.5 mg PO ONCE ONE Stop: 06/27/18 18:01 - Objective Vital Signs: Vital Signs Temperature 98.2 F 06/27/18 06:00 Pulse Rate 94 H 06/27/18 10:00 Respiratory Rate 18 06/27/18 10:00 Blood Pressure 132/73 06/27/18 10:00 O2 Sat by Pulse Oximetry (%) 98 06/27/18 09:00 Labs: CBC, BMP 06/27/18 05:45 06/27/18 05:45 INR, PTT INR 1.34 (0.83-1.09) H 06/27/18 05:45 Problem List - Problems (1) Mitral regurgitation Assessment/Plan: moderately severe on ECHO 9normal LVEF; chamber sizes WNL). Code(s): I34.0 - NONRHEUMATIC MITRAL (VALVE) INSUFFICIENCY (2) Diastolic CHF Assessment/Plan: TNI < 0.02 Elevated BNP; congestive changes on CXR. On atenolol an furosemide; amlodipine changed to lisinopril. F/u BUN/Cr, electrolytes, daily wt, Is ans Os. Code(s): I50.30 - UNSPECIFIED DIASTOLIC (CONGESTIVE) HEART FAILURE (3) HTN (hypertension) Assessment/Plan: On atenolol. Change amlodipine to lisinopril (HTN; hyperglycemida; hypokalemia on diuretic). Code(s): I10 - ESSENTIAL (PRIMARY) HYPERTENSION (4) Morbid obesity Code(s): E66.01 - MORBID (SEVERE) OBESITY DUE TO EXCESS CALORIES (5) Hyperlipidemia Assessment/Plan: HDL 33; LDL 90; trigly 133 mg/dL. Code(s): E78.5 - HYPERLIPIDEMIA, UNSPECIFIED (6) Sleep apnea Assessment/Plan: r/o with sleep studies Code(s): G47.30 - SLEEP APNEA, UNSPECIFIED (7) Atrial fibrillation with rapid ventricular response Assessment/Plan: On atenolol for HR control. On warfarin; continue lovenox bid until INR 2-3. Code(s): I48.91 - UNSPECIFIED ATRIAL FIBRILLATION (8) Pulmonary nodule, right Assessment/Plan: [address] f/u recommended by radiology. Code(s): R91.1 - SOLITARY PULMONARY NODULE (9) Anemia Assessment/Plan: f/u hematology w/u Code(s): D64.9 - ANEMIA, UNSPECIFIED (10) Sedentary lifestyle Code(s): Z91.89 - OTH PERSONAL RISK FACTORS, NOT ELSEWHERE CLASSIFIED (11) Anxiety with depression Assessment/Plan: On Lexapro. Code(s): F41.8 - OTHER SPECIFIED ANXIETY DISORDERS (12) Status post bilateral knee replacements Code(s): Z96.653 - PRESENCE OF ARTIFICIAL KNEE JOINT, BILATERAL (13) Hyperglycemia Assessment/Plan: elevated glucose; HGBA1c 6.3. Diet change, weight loss, exercise would be ideal. Code(s): R73.9 - HYPERGLYCEMIA, UNSPECIFIED (14) Hypokalemia Assessment/Plan: Replete, and keep K+ 4-4.5 On furosemide (change to chlorthalidone when no longer in acute CHF); amlodipine changed to lisinopril, which should aid in holding K+. Code(s): E87.6 - HYPOKALEMIA
[2018-06-27] MEDS ORDERED: LISINOPRIL 5 MG TABLET (FP) PO ONE (13:45)
[2018-06-27] MEDS ORDERED: WARFARIN NA 7.5 MG TABLET (FP) PO ONE (18:00)
--- NOTE | 2018-06-27 18:49 | PN ---
Physical Exam: SUBJECTIVE: Patient seen and examined at bedside this morning. No acute events overnight. Patient is sitting comfortably in bed, eating breakfast. She reported significant improvement of her breathing since yesterday. She is on 2L NC, but can tolerate off oxygen. She denies any headache, dizziness, chest pain , vomiting, palpitations, abdominal pain, diarrhea, urinary symptoms. OBJECTIVE: Vital Signs Period Temp Pulse Resp BP Sys/Mckeon Pulse Ox Last 24 Hr 98.2 F-99.0 F 83-97 18-20 121-146/68-90 98-98 GENERAL: The patient is awake, alert, and fully oriented, on 3L NC. HEAD: Normal with no signs of trauma. EYES: PERRLA, EOMI, sclera anicteric, conjunctiva clear. ENT: Ears normal, nares patent, oropharynx clear without exudates, moist mucous membranes. NECK: Soft, supple, trachea midline. LUNGS: +Crackles on bilateral bases HEART: Tachycardic, S1, S2 without murmur, rub or gallop. ABDOMEN: Soft, nontender, nondistended, normoactive bowel sounds. EXTREMITIES: 2+ pulses, warm, well-perfused, no edema. SKIN: Warm, dry, normal turgor, no rashes or lesions noted Laboratory Results - last 24 hr 06/26/18 06/26/18 06/27/18 08:21 21:07 05:45 WBC RBC Hgb Hct MCV MCH MCHC RDW Plt Count MPV Absolute Neuts (auto) Neutrophils % Lymphocytes % Monocytes % Eosinophils % Basophils % Nucleated RBC % PT with INR 15.80 H INR 1.34 H Sodium Potassium Chloride Carbon Dioxide Anion Gap BUN Creatinine Creat Clearance w eGFR POC Glucometer 175 Random Glucose Calcium Phosphorus Magnesium Iron 26 L TIBC 339 Iron Saturation 8 L Transferrin 257 Total Bilirubin AST ALT Alkaline Phosphatase Total Protein Albumin 06/27/18 06/27/18 06/27/18 05:45 05:45 06:58 WBC 8.1 RBC 3.54 L Hgb 8.2 L Hct 27.5 L MCV 77.8 L MCH 23.3 L MCHC 29.9 L RDW 18.7 H Plt Count 237 MPV 7.8 Absolute Neuts (auto) 5.4 Neutrophils % 67.2 Lymphocytes % 25.1 Monocytes % 5.8 Eosinophils % 1.3 Basophils % 0.6 Nucleated RBC % 0 PT with INR INR Sodium 141 Potassium 4.1 Chloride 110 H Carbon Dioxide 26 Anion Gap 5 L BUN 23 H Creatinine 1.0 Creat Clearance w eGFR 54.05 POC Glucometer 137 Random Glucose 111 H Calcium 8.1 L Phosphorus 3.4 Magnesium 2.1 Iron TIBC Iron Saturation Transferrin Total Bilirubin 0.6 AST 23 ALT 28 Alkaline Phosphatase 109 Total Protein 7.1 Albumin 3.0 L 06/27/18 16:28 WBC RBC Hgb Hct MCV MCH MCHC RDW Plt Count MPV Absolute Neuts (auto) Neutrophils % Lymphocytes % Monocytes % Eosinophils % Basophils % Nucleated RBC % PT with INR INR Sodium Potassium Chloride Carbon Dioxide Anion Gap BUN Creatinine Creat Clearance w eGFR POC Glucometer 125 Random Glucose Calcium Phosphorus Magnesium Iron TIBC Iron Saturation Transferrin Total Bilirubin AST ALT Alkaline Phosphatase Total Protein Albumin Active Medications Generic Name Dose Route Start Last Admin Trade Name Freq PRN Reason Stop Dose Admin Atenolol 100 mg 06/26/18 13:30 06/27/18 10:11 Tenormin - PO 100 mg DAILY JOSE J Administration Cyclobenzaprine HCl 10 mg 06/26/18 22:00 06/26/18 22:43 Flexeril - PO 10 mg HS JOSE J Administration Enoxaparin Sodium 100 mg 06/27/18 22:00 Lovenox - SQ BID [facility] Escitalopram Oxalate 10 mg 06/27/18 10:00 06/27/18 10:11 Lexapro - PO 10 mg DAILY JOSE J Administration Furosemide 40 mg 06/27/18 10:00 06/27/18 10:11 Lasix Injection - IVPUSH 40 mg DAILY JOSE J Administration Insulin Aspart 1 vial 06/26/18 07:00 06/27/18 16:48 Novolog Vial Sliding Scale - SQ Not Given ACHS [facility] Protocol Lisinopril 2.5 mg 06/28/18 10:00 Prinivil PO DAILY [facility] Metoprolol Tartrate 5 mg 06/26/18 13:11 Lopressor Injection - IVPUSH Q4H PRN HYPERTENSION ASSESSMENT/PLAN: Patient is a 73 year old female with past medical history of HTN, NIDDM, presented with shortness of breath the past 4 days. #SOB likely 2/2 CHF exacerbation -CTA: insterstitial pulmonary vascular congestion with small bilateral pleural effusions, cardiomegaly, mild bilateral flank subcutaneous edema. -Echo - LV size, thickness, function is normal. LV EF normal. LV wall motion normal. Mild aortic valve thickening. Mild . Moderate AR. Mild TR. Right ventricular systolic pressure is elevated at 40-50mmHg. Moderate to severe MR. -Cardiology (Dr. Bashir) consulted. Recommendations appreciated. -IV Lasix 40mg daily -Amlodipine changed to Lisinopril 2.5mg daily -I&O, daily weights -f/u BUN/Cr, electrolytes #Atrial fibrillation with RVR: unclear etiology -CTA - no evidence of pulmonary embolism. -TSH wnl -Flu swab - negative -Echo done -Cardiology (Dr. Bashir) consulted. Recommendations appreciated. -Continue home Atenolol 100mg daily for HR control. -Lopressor IV 4mg PRN for tachycardia. Will continue to monitor. -CHADSVASc 6. Would need to start AC. -Options discussed with patient. Because patient has no insurance, declined NOACs and agreed to start with Coumadin. -Coumadin bridging started today. -INR 1.34 today. -Repeat INR in the morning. -Continue Lovenox 100mg sq bid until INR 2-3. #Microcytic Anemia likely 2/2 Iron Deficiency Anemia -Retic ct 3.18 -Will continue to monitor H/H -Iron low, TIBC borderline high, Ferritin borderline low -Will give iron supplements upon discharge #DM -HbA1c: 6.3 -Insulin sliding scale implemented -BGM ACHS #HTN:chronic -Continue home Atenolol 100mg daily -Amlodipine switched to Lisinopril 2.5mg daily -Will continue to monitor #Pulmonary nodules -CT: Several nonspecific right upper lobe pulmonary nodules are noted measuring 1.7cm. -Correlation with 2month follow-up CT suggested -Should follow-up as outpatient #Renal cyst -CT: partial imaging of 1.4cm right renal upper pole hyperdense cyst. -Correlate with 2 month follow-up -Should folow-up as oupatient. #FEN -Not on any standing fluids -electrolytes wnl, routine bmp monitoring -Sodium controlled diet #Prophylaxis -Lovenox 100mg sq BID -Will bridge to Coumadin 7.5mg #Disposition -full code -admit to tele Visit type - Emergency Visit Emergency Visit: Yes ED Registration Date: 06/26/18 Care time: The patient presented to the Emergency Department on the above date and was hospitalized for further evaluation of their emergent condition. - New Patient This patient is new to me today: No - Critical Care Critical Care patient: No
--- NOTE | 2018-06-27 18:58 | PN ---
Teaching Attending Note Name of Resident: Chantale Condon ATTENDING PHYSICIAN STATEMENT I saw and evaluated the patient. I reviewed the resident's note and discussed the case with the resident. I agree with the resident's findings and plan as documented. SUBJECTIVE: No fever or chills . no palpitations . feels much better OBJECTIVE: NAD, Awake, cooperative. CV: irreg irreg. no MRG . JVD + Lungs: b/l crackles at bases Abd: soft, NT, ND , NL BS , obese Ext: 1+ edema , no erythema . ASSESSMENT AND PLAN: 73 y/o lady with h/o pre-diabetes, HTN and obesity, with no medical care x 3 years , who presented with SOB and was found to have A fib with RVR ansd acute CHF . 1- A fib with RVR: - echo reviewed. ? severe MR responsible for A fib - cont atenolol - cont bridging to coumadin with lovenox BID 2- Acute diastolic heart failure - cont lasix . follow weight as incontinent -cont BB and lisinopril 3- microcytic anemia:due to iron def. will start iron supp at dc stool OB pending GI f/u as out pt for colonoscopy /EGD 4- HTN: monitor on toprol - cont lisionoril . can resume her home norvasc if BP remains elevated 5- Pre-DM : A1c of 6.3 6- Pulm nodules. pulm for follow up and bx as out pt 7- renal cyst on CT. monitor and follow as outpt HLOC .
[2018-06-27] MEDS: CYCLOBENZAPRINE HCL 10 MG TABLET (FP) PO SCH (22:11)
[2018-06-28] MEDS: INSULIN SLIDING SCALE (NOVOLOG) 1 VIAL SQ SCH ×3 (06:25→18:00)
[2018-06-28 06:49] LABS: HEMOGLOBIN 8.1 GM/dL (10.7-15.3); MCH 23.1 pg (25.7-33.7); MEAN PLT VOLUME 7.8 fl (7.5-11.1); PLATELET COUNT 230 K/MM3 (134-434); RBC 3.51 M/mm3 (3.60-5.2); RDW 18.4 % (11.6-15.6); WHITE BLOOD COUNT 6.8 K/mm3 (4.0-10.0)
[2018-06-28 07:01] LABS: INR 2.03 (0.83-1.09); PROTHROMBIN TIME (PATIENT) 24.1 SEC (9.7-13.0)
[2018-06-28 07:28] LABS: ANION GAP 6 MMOL/L (8-16); BLOOD UREA NITROGEN 28 mg/dL (7-18); CALCIUM 7.6 mg/dL (8.5-10.1); CHLORIDE 107 mmol/L (98-107); CO2 28 mmol/L (21-32); CREATININE 0.9 mg/dL (0.55-1.3); GLUCOSE,RANDOM 104 mg/dL (74-106); PHOSPHOROUS 3.8 mg/dL (2.5-4.9); POTASSIUM 3.8 mmol/L (3.5-5.1); SODIUM 141 mmol/L (136-145)
[2018-06-28] MEDS ORDERED: LISINOPRIL 5 MG TABLET (FP) PO SCH (10:00)
[2018-06-28] MEDS: FUROSEMIDE 40 MG/4 ML INJECTABLE VIAL IVPUSH SCH (10:27)
[2018-06-28] MEDS: ESCITALOPRAM OXALATE 10 MG TABLET (FP) PO SCH (10:28)
[2018-06-28] MEDS: ENOXAPARIN NA (PORCINE) 100 MG/1 ML DISP.SYRIN SQ SCH (10:28)
[2018-06-28] MEDS: ATENOLOL 50 MG TABLET (FP) PO SCH (10:28)
[2018-06-28] MEDS ORDERED: BENZOCAINE/MENTH/CETYLPYRD CL 1 EACH LOZENGE MM PRN (11:00)
[2018-06-28] MEDS ORDERED: POTASSIUM CHLORIDE TABS 20 MEQ TABLET.ER (FP) PO ONE (11:30)
[2018-06-28 15:23] VITALS: BP 136/85; PULSE 96; TEMP 98.7
--- NOTE | 2018-06-28 18:11 | PN ---
Teaching Attending Note Name of Resident: Chantale Condon ATTENDING PHYSICIAN STATEMENT I saw and evaluated the patient. I reviewed the resident's note and discussed the case with the resident. I agree with the resident's findings and plan as documented. SUBJECTIVE: no cp or palpitations. OBJECTIVE: NAD, Awake, cooperative. CV: irreg irreg. no MRG . Lungs: CTAB s Ext: No edema , no erythema . ASSESSMENT AND PLAN: 73 y/o lady with h/o pre-diabetes, HTN and obesity, with no medical care x 3 years , who presented with SOB and was found to have A fib with RVR ansd acute CHF . 1- A fib with RVR: -follow with Dr. Garza regarding severe MR - cont atenolol - INR 2.03 . cont coumadin 5 mg every evening. will give today's dose before she leaves 2- Acute diastolic heart failure - cont lasix . - cont BB and lisinopril . resume home norvasc at dc 3- Microcytic anemia:due to iron def. will start iron supp at [facility] GI f/u as out pt for colonoscopy /EGD 4- HTN:as above 5- Pre-DM : A1c of 6.3 6- Pulm nodules. pulm for follow up and bx as out pt 7- renal cyst on CT. monitor and follow as outpt dc . d/w pt and family member
[2018-06-28] MEDS ORDERED: WARFARIN NA 5 MG TABLET (UD) PO ONE (18:14)
--- NOTE | 2018-06-28 18:21 | DS ---
Physical Exam: SUBJECTIVE: Patient seen and examined at bedside this morning. No acute events overnight. Patient reported feeling better, and can tolerate moving around without experiencing difficulty breathing or needing the oxygen. OBJECTIVE: Vital Signs Period Temp Pulse Resp BP Sys/Mckeon Pulse Ox Last 24 Hr 97.6 F-98.7 F 82-96 18-20 105-143/58-85 96-96 PHYSICAL EXAM GENERAL: The patient is awake, alert, and fully oriented, on 3L NC. HEAD: Normal with no signs of trauma. EYES: PERRLA, EOMI, sclera anicteric, conjunctiva clear. ENT: Ears normal, nares patent, oropharynx clear without exudates, moist mucous membranes. NECK: Soft, supple, trachea midline. LUNGS: +Crackles on bilateral bases, improved HEART: Irregularly irregular, S1, S2 without murmur, rub or gallop. ABDOMEN: Soft, nontender, nondistended, normoactive bowel sounds. EXTREMITIES: 2+ pulses, warm, well-perfused, no edema. SKIN: Warm, dry, normal turgor, no rashes or lesions noted LABS Laboratory Results - last 24 hr 06/27/18 06/28/18 06/28/18 21:48 05:03 05:30 WBC RBC Hgb Hct MCV MCH MCHC RDW Plt Count MPV PT with INR 24.10 H INR 2.03 H Sodium Potassium Chloride Carbon Dioxide Anion Gap BUN Creatinine Creat Clearance w eGFR POC Glucometer 118 121 Random Glucose Calcium Phosphorus Magnesium 06/28/18 06/28/18 06/28/18 05:30 05:30 12:03 WBC 6.8 RBC 3.51 L Hgb 8.1 L Hct 27.0 L MCV 77.0 L MCH 23.1 L MCHC 30.0 L RDW 18.4 H Plt Count 230 MPV 7.8 PT with INR INR Sodium 141 Potassium 3.8 Chloride 107 Carbon Dioxide 28 Anion Gap 6 L BUN 28 H Creatinine 0.9 Creat Clearance w eGFR > 60 POC Glucometer 124 Random Glucose 104 Calcium 7.6 L Phosphorus 3.8 Magnesium 2.0 06/28/18 17:45 WBC RBC Hgb Hct MCV MCH MCHC RDW Plt Count MPV PT with INR INR Sodium Potassium Chloride Carbon Dioxide Anion Gap BUN Creatinine Creat Clearance w eGFR POC Glucometer 102 Random Glucose Calcium Phosphorus Magnesium -Chest/Thorax CTA: insterstitial pulmonary vascular congestion with small bilateral pleural effusions, cardiomegaly, mild bilateral flank subcutaneous edema. No evidence of pulmonary embolism. Several nonspecific right upper lobe pulmonary nodules are noted measuring 1.7cm. Partial imaging of 1.4cm right renal upper pole hyperdense cyst. -Echo - LV size, thickness, function is normal. LV EF normal. LV wall motion normal. Mild aortic valve thickening. Mild . Moderate AR. Mild TR. Right ventricular systolic pressure is elevated at 40-50mmHg. Moderate to severe MR. HOSPITAL COURSE: Date of Admission:06/26/18 Date of Discharge: 06/28/18 Patient is a 73 year old female with past medical history of HTN, NIDDM, presented with shortness of breath for 4 days. Chest CTA was done which showed vascular congestion with bilateral pleural effusions. Patient was started on IV Lasix 40mg. Echo was done. Cardiology consulted. Her home dose Atenolol was continued and Amlodipine for hypertension was switched to Lisinopril 2.5mg. Patient was also noted to have atrial fibrillation with RVR. She had CHADSVASc of 6, but patient had no insurance, declined NOAC and opted to be started on coumadin. Patient improved throughout her hospital stay. She was also noted to have Iron deficiency anemia, and was prescribed iron supplements upon discharge. On CTA, patient was found to have pulmonary nodules and renal cyst, to which she was told to follow-up with PCP as outpatient. On discharge, patient was scheduled a follow-up with [facility], and was instructed to have blood work done (BMP, INR) prior to the appointment. Minutes to complete discharge: 35 Discharge Summary Reason For Visit: CONGESTIVE HEART FAILURE,ATRIAL FIBRILLATION WITH Current Active Problems Anemia (Acute) Atrial fibrillation with rapid ventricular response (Acute) CHF (congestive heart failure) (Acute) Diastolic CHF (Acute) Hypokalemia (Acute) Mitral regurgitation (Acute) Pulmonary nodule, right (Acute) Anxiety with depression (Chronic) HTN (hypertension) (Chronic) Hyperglycemia (Chronic) Hyperlipidemia (Chronic) Morbid obesity (Chronic) Sedentary lifestyle (Chronic) Sleep apnea (Chronic) Status post bilateral knee replacements (Chronic) Condition: Improved - Instructions Diet, Activity, Other Instructions: Please relay information in French. Your visit You were admitted to the hospital because you had shortness of breath. Ultrasound of your heart was done which showed that your heart doesn't pump blood as well as it should. Because of this, you are retaining fluid in your lungs. You were given water pills that would help excrete this fluid through the urine. You were also noted to have abnormal hearth rhythm. You were diagnosed to have a new onset Atrial fibrillation. It means that your heart beats fast and irregularly. This puts you at an increased risk of developing clots that can go to your brain and cause stroke. You were continued on atenolol to control your heart rate and blood thinners to decrease the risk of forming clots ( coumadin ) . You red blood cells are also noted to be low. Further work-up revealed you likely have insufficient iron. You will be started on iron supplements. Take note that this causes dark-colored stools. You were also found nodules on your lung and cyst on your kidney. Please discuss these with your primary care doctor for further evaluation. you might need a biopsy of your lung nodules. follow with Dr. Wright please ( pulmonary ) Medications You were started on new medications. Please take them as prescribe: 1. Coumadin 5 mg every evening at same time . 2. Lisinopril 2.5mg daily. 3. Lasix 40mg daily. 4. Continue Atenolol 100mg daily. 5- take irion Care -Coumadin increases your risk of bleeding. Monitor yourself for bleeding and bruising. If you fall and hit your head you should come to the hospital for imaging. -It is very important that you follow up with primary care doctor to have your INR checked. This is a number that would tell your doctor if your Coumadin dose needs to be adjusted. INR that is too low increases your risk of clotting and INR that is too high would increase your risk of bleeding. -Eat low sugar, low fat diet and drink plenty of water. -Exercise daily. - eat consistent diet ( green leaves might change coumadin level. eat same amount of green every day ) . also antibiotics can change level Follow-up -Follow-up with the pocket maker (Dr. Bashir) within 1 week. important to adjust lasix dose -Follow-up with lung doctor (Dr. Wright) within 1 week. Call the office to schedule an appointment. -Please follow-up at the [facility] (Dr. Scarlett Hernandez). Call the office at [phone] to confirm your appointment on Sunday07/01/18.at 1: 10 pm - follow with Dr. merino GI, for need for colonoscopy. YOU WILL BE GIVEN A PRESCRIPTION TO DO BLOOD WORK AND HAVE YOUR INR CHECKED. PLEASE DO THIS ON Sunday (07/01/18) BEFORE GOING TO YOUR APPOINTMENTS. next INR check is per primary care doctor Additional info Call 911 or go to the ED if with any worsening shortness of breath, fever, chills, headache, nausea, vomiting, chest pain, palpitations, abdominal pain, bloody stools, bloody urine or any new concerns noted. Referrals: [facility] [place] [Provider Group] - 07/02/18 10:30 am Vamshi Wright MD [Staff Physician] - 1 Week Mike Bashir MD [Staff Physician] - 1 Week David Merino MD [Staff Physician] - Disposition: HOME - Home Medications Comprehensive Discharge Medication List: Ambulatory Orders Amlodipine Besylate [Norvasc -] 5 mg PO DAILY 06/26/18 Cyclobenzaprine HCl [Flexeril -] 10 mg PO HS 06/26/18 Escitalopram Oxalate [Lexapro -] 10 mg PO DAILY 06/26/18 Atenolol [Tenormin -] 100 mg PO DAILY #30 tablet 06/28/18 Furosemide [Lasix] 40 mg PO DAILY #30 tablet 06/28/18 Lisinopril [Prinivil] 2.5 mg PO DAILY #30 tablet 06/28/18 Miscellaneous Medical Supply [Outpatient Order] 1 each ASDIR #1 misc Warfarin Sodium [Coumadin] 5 mg PO DAILY #30 tablet 06/28/18 This patient is new to me today: No Emergency Visit: Yes ED Registration Date: 06/26/18 Care time: The patient presented to the Emergency Department on the above date and was hospitalized for further evaluation of their emergent condition. Critical Care patient: No - Discharge Referral Referred to [facility] No
== END 2018-06-28 19:18 | disposition home or self-care (01) | DRG 194 ==
LOC: JER 22:52 → JERBED 06-26 04:17 → J4W 06-26 18:17
PROVIDERS: ADMIT Internal Medicine; ATTEND Internal Medicine
DX: I11.0 Hypertensive heart disease with heart failure (principal); I48.91 Unspecified atrial fibrillation; I10 Essential (primary) hypertension; Z68.41 Body mass index [BMI] 40.0-44.9, adult; E11.9 Type 2 diabetes mellitus without complications; D64.9 Anemia, unspecified; R91.8 Other nonspecific abnormal finding of lung field; D50.9 Iron deficiency anemia, unspecified; I50.31 Acute diastolic (congestive) heart failure; I34.0 Nonrheumatic mitral (valve) insufficiency; E66.01 Morbid (severe) obesity due to excess calories; E78.5 Hyperlipidemia, unspecified; G47.30 Sleep apnea, unspecified; I27.20 Pulmonary hypertension, unspecified; F41.8 Other specified anxiety disorders; R60.0 Localized edema; E11.65 Type 2 diabetes mellitus with hyperglycemia; E87.6 Hypokalemia; N28.1 Cyst of kidney, acquired; Z91.89 Other specified personal risk factors, not elsewhere classified; Z96.653 Presence of artificial knee joint, bilateral
CPT/HCPCS: 36415; 71045-TC-FY; 71275-TC; 80048; 80053; 80061; 81003; 82550; 82728; 82803; 82962; 83036; 83540; 83550; 83721; 83735; 83880; 84100; 84443; 84466; 84484; 85025; 85027; 85044; 85610; 86850; 86900; 86901; 87086; 87804; 90688; 93005; 93010; 93306-TC; 93971-TC; 99285-25; G0008; J0131

== ENCOUNTER 2020-07-21 22:39 | Inpatient (IN) | payer OTHER ==
[2020-07-21 23:02] VITALS: BMI 35.4
[2020-07-21 23:25] LABS: BASO % 0.4 % (0-2.0); HEMOGLOBIN 14.5 GM/dL (10.7-15.3); LYMPH % 15.4 % (8-40); MCH 30.9 pg (25.7-33.7); MCHC 33.7 g/dl (32.0-36.0); MEAN CELL VOLUME 91.8 fl (80-96); MEAN PLT VOLUME 8.9 fl (7.5-11.1); MONO % 6.1 % (3.8-10.2); NEUT % 78.1 % (42.8-82.8); PLATELET COUNT 91 K/MM3 (134-434); RBC 4.68 M/mm3 (3.60-5.2); RDW 14.1 % (11.6-15.6); WHITE BLOOD COUNT 3.5 K/mm3 (4.0-10.0)
[2020-07-21 23:32] LABS: INR 1.12 (0.83-1.09); PROTHROMBIN TIME (PATIENT) 13.7 SEC (9.7-13.0)
[2020-07-21 23:47] LABS: ALBUMIN 2.9 g/dl (3.4-5.0); CALCIUM 7.2 mg/dL (8.5-10.1)
[2020-07-21 23:48] LABS: MAGNESIUM 2.2 mg/dL (1.8-2.4)
[2020-07-21 23:52] LABS: BILIRUBIN,TOTAL 0.8 mg/dL (0.2-1); TOT PROT 6.9 g/dl (6.4-8.2)
[2020-07-21 23:53] LABS: N-TERMINAL BNP 2913.4 pg/ml (5-450)
[2020-07-22] MEDS ORDERED: ENOXAPARIN NA (PORCINE) 80 MG/0.8 ML DISP.SYRIN SQ ONE (00:17)
[2020-07-22] MEDS ORDERED: FUROSEMIDE 40 MG/4 ML INJECTABLE VIAL IVPUSH ONE (00:18)
[2020-07-22] MEDS ORDERED: FUROSEMIDE 40 MG/4 ML INJECTABLE VIAL ONE (01:02)
[2020-07-22] MEDS ORDERED: ENOXAPARIN NA (PORCINE) 100 MG/1 ML DISP.SYRIN SQ ONE (01:02)
[2020-07-22 01:24] LABS: BLOOD UREA NITROGEN 47.1 mg/dL (7-18); CREATININE 1.9 mg/dL (0.55-1.3); POTASSIUM 3.2 mmol/L (3.5-5.1)
[2020-07-22] MEDS ORDERED: POTASSIUM CHLORIDE TABS 10 MEQ TABLET.ER (FP) PO ONE (01:29)
[2020-07-22] MEDS ORDERED: DEXAMETHASONE SOD PHOSPHATE 4 MG/1 ML VIAL IVPUSH ONE (01:49)
[2020-07-22] MEDS ORDERED: DEXAMETHASONE SOD PHOSPHATE 4 MG/1 ML VIAL ONE ×2 (01:54→10:45)
[2020-07-22] MEDS ORDERED: POTASSIUM CHLORIDE TABS 10 MEQ TABLET.ER (FP) ONE (01:54)
[2020-07-22] MEDS ORDERED: ALBUTEROL SO4 HFA INHALER IH PRN (01:55)
[2020-07-22 02:31] LABS: ACTIVATED PTT 33.3 SECONDS (25.2-36.5)
[2020-07-22 02:36] LABS: BILIRUBIN,DIRECT 0.4 mg/dL (0.0-0.2)
[2020-07-22] MEDS ORDERED: ONDANSETRON 4 MG/2 ML VIAL IVPUSH ONE (03:08)
[2020-07-22] MEDS ORDERED: ONDANSETRON 4 MG/2 ML VIAL ONE (03:18)
[2020-07-22 03:20] LABS: VENOUS BASE EXCESS 0.6 mmol/L (-2-2); VENOUS O2 SATURATION 27.1 % (70-80); VENOUS PCO2 51.6 mmHg (38-52); VENOUS PH 7.341 (7.310-7.410)
[2020-07-22 03:58] LABS: EPI CELLS 4 /uL (0-25.1); HYALINE CASTS 0 /uL (0-3.1); URINE APPEARANCE CLEAR; URINE BACTERIA >9,000 /uL (0-1359); URINE BILIRUBIN NEGATIVE (NEGATIVE); URINE COLOR YELLOW; URINE GLUCOSE (UA) NEGATIVE (NEGATIVE); URINE KETONE NEGATIVE (NEGATIVE); URINE LEUK ESTERASE 1+ (NEGATIVE); URINE NITRITE POSITIVE (NEGATIVE); URINE PROTEIN 1+ (NEGATIVE); URINE RBC 7 /uL (0-23.9); URINE UROBILINOGEN 0.2 mg/dL (0.2-1.0); URINE WBC 125 /uL (0-25.8)
[2020-07-22 08:19] LABS: BILIRUBIN,DIRECT 0.5 mg/dL (0.0-0.2)
[2020-07-22 08:32] LABS: BASO % 0.3 % (0-2.0); HEMATOCRIT 45.9 % (32.4-45.2); HEMOGLOBIN 15.6 GM/dL (10.7-15.3); MCH 31.1 pg (25.7-33.7); MCHC 34.1 g/dl (32.0-36.0); MEAN CELL VOLUME 91.3 fl (80-96); MONO % 4.2 % (3.8-10.2); NEUT % 85.5 % (42.8-82.8); PLATELET COUNT 104 K/MM3 (134-434); RBC 5.02 M/mm3 (3.60-5.2); RDW 14.3 % (11.6-15.6); WHITE BLOOD COUNT 4.3 K/mm3 (4.0-10.0)
[2020-07-22] MEDS ORDERED: ALBUTEROL SO4 HFA INHALER IH ONE (10:45)
[2020-07-22 11:08] LABS: ALBUMIN 3.1 g/dl (3.4-5.0); BILIRUBIN,TOTAL 0.9 mg/dL (0.2-1); BLOOD UREA NITROGEN 47.9 mg/dL (7-18); CALCIUM 7.6 mg/dL (8.5-10.1); CREATININE 1.6 mg/dL (0.55-1.3); POTASSIUM 3.8 mmol/L (3.5-5.1); TOT PROT 7.6 g/dl (6.4-8.2)
[2020-07-22] MEDS ORDERED: dilTIAZem HCL 50 MG/10 ML - 10 ML VIAL IVPUSH ONE (11:55)
[2020-07-22] MEDS ORDERED: dilTIAZem HCL 125 MG/25 ML - 25 ML VIAL ONE (11:58)
[2020-07-22] MEDS ORDERED: REMDESIVIR 200 MG in SODIUM CHLORIDE 210 ML IVPB ONE (15:00)
[2020-07-22] MEDS ORDERED: ENOXAPARIN NA (PORCINE) 80 MG/0.8 ML DISP.SYRIN SQ SCH (16:30)
[2020-07-22] MEDS: FAMOTIDINE 20 MG TABLET PO SCH (17:02)
[2020-07-23] MEDS: ENOXAPARIN NA (PORCINE) 80 MG/0.8 ML DISP.SYRIN SQ SCH ×2 (09:31→21:29)
[2020-07-23] MEDS: FAMOTIDINE 20 MG TABLET PO SCH (09:31)
[2020-07-23] MEDS: ZINC SULFATE 220 MG CAPSULE (FP) PO SCH (09:31)
[2020-07-23] MEDS: DEXAMETHASONE SOD PHOSPHATE 4 MG/1 ML VIAL IVPUSH SCH (09:31)
[2020-07-23 11:43] LABS: POTASSIUM 3.4 mmol/L (3.5-5.1)
[2020-07-23 11:45] LABS: CALCIUM 7.8 mg/dL (8.5-10.1); MAGNESIUM 2.4 mg/dL (1.8-2.4)
[2020-07-23 11:46] LABS: ALBUMIN 3.2 g/dl (3.4-5.0); BLOOD UREA NITROGEN 68.7 mg/dL (7-18)
[2020-07-23 11:50] LABS: BILIRUBIN,TOTAL 0.8 mg/dL (0.2-1); TOT PROT 7.5 g/dl (6.4-8.2)
[2020-07-23 11:54] LABS: BASO % 0.3 % (0-2.0); HEMATOCRIT 47.8 % (32.4-45.2); LYMPH % 8.2 % (8-40); MCH 30.6 pg (25.7-33.7); MCHC 33.4 g/dl (32.0-36.0); MEAN CELL VOLUME 91.4 fl (80-96); MEAN PLT VOLUME 8.8 fl (7.5-11.1); MONO % 5.4 % (3.8-10.2); NEUT % 86.1 % (42.8-82.8); PLATELET COUNT 123 K/MM3 (134-434); RBC 5.23 M/mm3 (3.60-5.2); RDW 14.5 % (11.6-15.6); WHITE BLOOD COUNT 6.8 K/mm3 (4.0-10.0)
[2020-07-23 12:51] LABS: PLATELET ESTIMATE DECREASED
[2020-07-23] MEDS: REMDESIVIR 100 MG in SODIUM CHLORIDE 230 ML IVPB SCH (15:39)
[2020-07-23] MEDS ORDERED: POTASSIUM CHLORIDE TABS 20 MEQ TABLET.ER (FP) PO ONE (17:27)
[2020-07-24] MEDS ORDERED: KCL 10 MEQ IVPB 10 MEQ/100 ML INFUS.BAG IVPB SCH (07:00)
[2020-07-24] MEDS ORDERED: POTASSIUM CHLORIDE TABS 20 MEQ TABLET.ER (FP) PO ONE (08:00)
[2020-07-24 10:14] LABS: HEMATOCRIT 45.1 % (32.4-45.2); HEMOGLOBIN 15.1 GM/dL (10.7-15.3); MCH 30.9 pg (25.7-33.7); MCHC 33.4 g/dl (32.0-36.0); MEAN CELL VOLUME 92.4 fl (80-96); MEAN PLT VOLUME 9.1 fl (7.5-11.1); PLATELET COUNT 140 K/MM3 (134-434); RBC 4.88 M/mm3 (3.60-5.2); RDW 14.4 % (11.6-15.6); WHITE BLOOD COUNT 5.6 K/mm3 (4.0-10.0)
[2020-07-24] MEDS: ZINC SULFATE 220 MG CAPSULE (FP) PO SCH (10:16)
[2020-07-24] MEDS: DEXAMETHASONE SOD PHOSPHATE 4 MG/1 ML VIAL IVPUSH SCH (10:16)
[2020-07-24] MEDS: FAMOTIDINE 20 MG TABLET PO SCH (10:17)
[2020-07-24] MEDS: ENOXAPARIN NA (PORCINE) 80 MG/0.8 ML DISP.SYRIN SQ SCH (10:18)
[2020-07-24 10:38] LABS: POTASSIUM 3.5 mmol/L (3.5-5.1)
[2020-07-24 10:42] LABS: CALCIUM 7.4 mg/dL (8.5-10.1)
[2020-07-24 10:43] LABS: ALBUMIN 2.9 g/dl (3.4-5.0); BLOOD UREA NITROGEN 65.7 mg/dL (7-18)
[2020-07-24 10:46] LABS: CREATININE 1.7 mg/dL (0.55-1.3)
[2020-07-24 10:47] LABS: BILIRUBIN,TOTAL 1.1 mg/dL (0.2-1); TOT PROT 7.1 g/dl (6.4-8.2)
[2020-07-24] MEDS ORDERED: CEFTRIAXONE 1 GM in DEXTROSE 5%-WATER - 50 ML IVPB SCH (11:45)
[2020-07-24] MEDS: APIXABAN 5 MG TABLET PO SCH ×2 (12:02→21:29)
[2020-07-24] MEDS: METOPROLOL TARTRATE 25 MG TABLET (FP) PO SCH ×2 (12:02→21:29)
[2020-07-24] MEDS: REMDESIVIR 100 MG in SODIUM CHLORIDE 230 ML IVPB SCH (14:56)
[2020-07-24 17:58] LABS: MAGNESIUM 2.7 mg/dL (1.8-2.4)
[2020-07-24 18:01] LABS: PHOSPHOROUS 4.7 mg/dL (2.5-4.9)
[2020-07-24 18:36] LABS: EPI CELLS >36 /uL (0-25.1); HYALINE CASTS 8 /uL (0-3.1); URINE APPEARANCE CLEAR; URINE BACTERIA 7965 /uL (0-1359); URINE BILIRUBIN NEGATIVE (NEGATIVE); URINE COLOR YELLOW; URINE GLUCOSE (UA) NEGATIVE (NEGATIVE); URINE KETONE NEGATIVE (NEGATIVE); URINE LEUK ESTERASE 2+ (NEGATIVE); URINE NITRITE NEGATIVE (NEGATIVE); URINE PROTEIN 2+ (NEGATIVE); URINE RBC 5 /uL (0-23.9); URINE UROBILINOGEN 0.2 mg/dL (0.2-1.0); URINE WBC 92 /uL (0-25.8)
[2020-07-25] MEDS ORDERED: MELATONIN 5 MG TABLETS PO ONE (00:40)
[2020-07-25] MEDS ORDERED: MEROPENEM 1 GM in DEXTROSE 5%-WATER 100 ML IVPB SCH (10:00)
[2020-07-25] MEDS: DEXAMETHASONE SOD PHOSPHATE 4 MG/1 ML VIAL IVPUSH SCH (10:18)
[2020-07-25] MEDS: APIXABAN 5 MG TABLET PO SCH ×2 (10:18→22:19)
[2020-07-25] MEDS: FAMOTIDINE 20 MG TABLET PO SCH (10:19)
[2020-07-25] MEDS: METOPROLOL TARTRATE 25 MG TABLET (FP) PO SCH (10:21)
[2020-07-25] MEDS ORDERED: MEROPENEM 1 GM VIAL (RESTRICTED TO ID) IVPB ONE ×2 (10:22→22:14)
[2020-07-25] MEDS: MEROPENEM 1 GM in DEXTROSE 5%-WATER 100 ML IVPB SCH ×2 (10:27→22:19)
[2020-07-25] MEDS: ZINC SULFATE 220 MG CAPSULE (FP) PO SCH (10:28)
[2020-07-25 15:30] LABS: BASO % 0.1 % (0-2.0); CALCIUM 7.9 mg/dL (8.5-10.1); HEMATOCRIT 46.6 % (32.4-45.2); HEMOGLOBIN 15.6 GM/dL (10.7-15.3); LYMPH % 5.2 % (8-40); MCH 30.8 pg (25.7-33.7); MCHC 33.5 g/dl (32.0-36.0); MEAN CELL VOLUME 91.9 fl (80-96); MEAN PLT VOLUME 9.1 fl (7.5-11.1); MONO % 9.2 % (3.8-10.2); NEUT % 85.5 % (42.8-82.8); PLATELET COUNT 178 K/MM3 (134-434); RBC 5.08 M/mm3 (3.60-5.2); RDW 14.2 % (11.6-15.6); WHITE BLOOD COUNT 6.5 K/mm3 (4.0-10.0)
[2020-07-25 15:31] LABS: ALBUMIN 2.9 g/dl (3.4-5.0); BLOOD UREA NITROGEN 61.4 mg/dL (7-18); MAGNESIUM 2.9 mg/dL (1.8-2.4)
[2020-07-25 15:34] LABS: CREATININE 1.6 mg/dL (0.55-1.3); PHOSPHOROUS 2.2 mg/dL (2.5-4.9)
[2020-07-25 15:35] LABS: BILIRUBIN,TOTAL 0.7 mg/dL (0.2-1)
[2020-07-25] MEDS: REMDESIVIR 100 MG in SODIUM CHLORIDE 230 ML IVPB SCH (16:35)
[2020-07-25] MEDS ORDERED: DEXTROSE 5%-WATER 100 ML IVPB ONE (22:15)
[2020-07-25] MEDS: METOPROLOL TARTRATE 50 MG TABLET (FP) PO SCH (22:19)
[2020-07-25] MEDS: NAPH,MB-DB/K PH,MBDB POWDER PACKET PO SCH (22:20)
[2020-07-26] MEDS: NAPH,MB-DB/K PH,MBDB POWDER PACKET PO SCH ×3 (06:28→21:45)
[2020-07-26] MEDS ORDERED: ALBUTEROL SO4 HFA INHALER IH PRN (07:42)
[2020-07-26 08:07] LABS: BASO % 0.1 % (0-2.0); HEMATOCRIT 46.3 % (32.4-45.2); HEMOGLOBIN 16.1 GM/dL (10.7-15.3); LYMPH % 12.2 % (8-40); MCH 31.3 pg (25.7-33.7); MCHC 34.7 g/dl (32.0-36.0); MEAN CELL VOLUME 90.4 fl (80-96); MEAN PLT VOLUME 8.4 fl (7.5-11.1); MONO % 4.4 % (3.8-10.2); NEUT % 83.3 % (42.8-82.8); PLATELET COUNT 176 K/MM3 (134-434); RBC 5.13 M/mm3 (3.60-5.2); RDW 14.1 % (11.6-15.6); WHITE BLOOD COUNT 6.1 K/mm3 (4.0-10.0)
[2020-07-26 08:46] LABS: ALBUMIN 2.9 g/dl (3.4-5.0); BILIRUBIN,TOTAL 0.8 mg/dL (0.2-1); BLOOD UREA NITROGEN 48.6 mg/dL (7-18); CALCIUM 7.9 mg/dL (8.5-10.1); CREATININE 1.4 mg/dL (0.55-1.3); MAGNESIUM 2.7 mg/dL (1.8-2.4); PHOSPHOROUS 2.6 mg/dL (2.5-4.9); POTASSIUM 4.1 mmol/L (3.5-5.1); TOT PROT 7.2 g/dl (6.4-8.2)
[2020-07-26] MEDS ORDERED: PT OWN MED DRAWER 7, Y5N ONE (10:56)
[2020-07-26] MEDS: METOPROLOL TARTRATE 50 MG TABLET (FP) PO SCH ×2 (11:00→21:45)
[2020-07-26] MEDS: ASCORBIC ACID 500 MG TABLET (FP) PO SCH (11:00)
[2020-07-26] MEDS: DEXAMETHASONE SOD PHOSPHATE 4 MG/1 ML VIAL IVPUSH SCH (11:00)
[2020-07-26] MEDS: APIXABAN 5 MG TABLET PO SCH ×2 (11:00→21:45)
[2020-07-26] MEDS: CHOLECALCIFEROL (VIT D3) 1,000 UNIT (25 MCG) TABLET PO SCH (11:00)
[2020-07-26] MEDS: ZINC SULFATE 220 MG CAPSULE (FP) PO SCH (11:00)
[2020-07-26] MEDS: FAMOTIDINE 20 MG TABLET PO SCH (11:01)
[2020-07-26] MEDS ORDERED: REMDESIVIR 100 MG in SODIUM CHLORIDE 230 ML IVPB SCH (15:00)
[2020-07-26] MEDS ORDERED: MEROPENEM 1 GM VIAL (RESTRICTED TO ID) IVPB ONE (17:35)
[2020-07-26] MEDS ORDERED: DEXTROSE 5%-WATER 100 ML IVPB ONE (17:36)
[2020-07-26] MEDS: MEROPENEM 1 GM in DEXTROSE 5%-WATER 100 ML IVPB SCH (17:40)
[2020-07-27] MEDS ORDERED: DEXTROSE 5%-WATER 100 ML IVPB ONE ×2 (05:25→16:25)
[2020-07-27] MEDS ORDERED: MEROPENEM 1 GM VIAL (RESTRICTED TO ID) IVPB ONE ×2 (05:25→16:25)
[2020-07-27] MEDS: NAPH,MB-DB/K PH,MBDB POWDER PACKET PO SCH ×3 (05:30→23:06)
[2020-07-27] MEDS: MEROPENEM 1 GM in DEXTROSE 5%-WATER 100 ML IVPB SCH ×2 (05:30→17:07)
[2020-07-27 08:15] LABS: EOS % 0.1 % (0-4.5); HEMATOCRIT 44.6 % (32.4-45.2); HEMOGLOBIN 15.3 GM/dL (10.7-15.3); LYMPH % 9.4 % (8-40); MCHC 34.3 g/dl (32.0-36.0); MEAN CELL VOLUME 90.3 fl (80-96); MEAN PLT VOLUME 8.6 fl (7.5-11.1); MONO % 2.9 % (3.8-10.2); NEUT % 87.6 % (42.8-82.8); PLATELET COUNT 194 K/MM3 (134-434); RBC 4.94 M/mm3 (3.60-5.2); WHITE BLOOD COUNT 6.9 K/mm3 (4.0-10.0)
[2020-07-27] MEDS ORDERED: PT OWN MED DRAWER 7, Y5N ONE (08:49)
[2020-07-27 08:50] LABS: POTASSIUM 3.5 mmol/L (3.5-5.1)
[2020-07-27 08:52] LABS: ALBUMIN 2.8 g/dl (3.4-5.0); BLOOD UREA NITROGEN 36.6 mg/dL (7-18); CALCIUM 7.6 mg/dL (8.5-10.1); MAGNESIUM 2.6 mg/dL (1.8-2.4)
[2020-07-27 08:56] LABS: PHOSPHOROUS 3.6 mg/dL (2.5-4.9)
[2020-07-27 08:57] LABS: BILIRUBIN,TOTAL 0.9 mg/dL (0.2-1); TOT PROT 6.8 g/dl (6.4-8.2)
[2020-07-27] MEDS: ZINC SULFATE 220 MG CAPSULE (FP) PO SCH (09:01)
[2020-07-27] MEDS: CHOLECALCIFEROL (VIT D3) 1,000 UNIT (25 MCG) TABLET PO SCH (09:01)
[2020-07-27] MEDS: APIXABAN 5 MG TABLET PO SCH ×2 (09:01→23:06)
[2020-07-27] MEDS: METOPROLOL TARTRATE 50 MG TABLET (FP) PO SCH ×2 (09:01→23:06)
[2020-07-27] MEDS: ASCORBIC ACID 500 MG TABLET (FP) PO SCH (09:01)
[2020-07-27] MEDS: FAMOTIDINE 20 MG TABLET PO SCH (09:02)
[2020-07-27] MEDS: DEXAMETHASONE SOD PHOSPHATE 4 MG/1 ML VIAL IVPUSH SCH (09:02)
[2020-07-27] MEDS ORDERED: SODIUM CHLORIDE 0.45% 1,000 ML IV SCH ×2 (16:30)
[2020-07-28] MEDS ORDERED: MEROPENEM 1 GM VIAL (RESTRICTED TO ID) IVPB ONE ×2 (05:10→17:10)
[2020-07-28] MEDS ORDERED: DEXTROSE 5%-WATER 100 ML IVPB ONE ×2 (05:10→17:10)
[2020-07-28] MEDS: MEROPENEM 1 GM in DEXTROSE 5%-WATER 100 ML IVPB SCH ×2 (05:41→17:51)
[2020-07-28] MEDS: NAPH,MB-DB/K PH,MBDB POWDER PACKET PO SCH ×2 (05:43→13:03)
[2020-07-28 08:32] LABS: BASO % 0.2 % (0-2.0); EOS % 0.3 % (0-4.5); HEMATOCRIT 47.2 % (32.4-45.2); HEMOGLOBIN 16.1 GM/dL (10.7-15.3); LYMPH % 6.1 % (8-40); MCH 31.1 pg (25.7-33.7); MCHC 34.2 g/dl (32.0-36.0); MEAN CELL VOLUME 90.8 fl (80-96); MEAN PLT VOLUME 8.7 fl (7.5-11.1); MONO % 2.1 % (3.8-10.2); NEUT % 91.3 % (42.8-82.8); PLATELET COUNT 217 K/MM3 (134-434); RDW 13.9 % (11.6-15.6); WHITE BLOOD COUNT 10.4 K/mm3 (4.0-10.0)
[2020-07-28 08:54] LABS: POTASSIUM 3.3 mmol/L (3.5-5.1)
[2020-07-28 08:56] LABS: ALBUMIN 2.8 g/dl (3.4-5.0); BLOOD UREA NITROGEN 31.5 mg/dL (7-18); CALCIUM 7.7 mg/dL (8.5-10.1); MAGNESIUM 2.4 mg/dL (1.8-2.4)
[2020-07-28 09:00] LABS: CREATININE 1.1 mg/dL (0.55-1.3); PHOSPHOROUS 3.1 mg/dL (2.5-4.9)
[2020-07-28 09:01] LABS: BILIRUBIN,TOTAL 1.1 mg/dL (0.2-1)
[2020-07-28] MEDS: ASCORBIC ACID 500 MG TABLET (FP) PO SCH (09:57)
[2020-07-28] MEDS: APIXABAN 5 MG TABLET PO SCH ×2 (09:57→21:19)
[2020-07-28] MEDS: DEXAMETHASONE SOD PHOSPHATE 4 MG/1 ML VIAL IVPUSH SCH (09:58)
[2020-07-28] MEDS: ZINC SULFATE 220 MG CAPSULE (FP) PO SCH (09:58)
[2020-07-28] MEDS: METOPROLOL TARTRATE 50 MG TABLET (FP) PO SCH ×2 (09:58→21:19)
[2020-07-28] MEDS: FAMOTIDINE 20 MG TABLET PO SCH (09:58)
[2020-07-28] MEDS: CHOLECALCIFEROL (VIT D3) 1,000 UNIT (25 MCG) TABLET PO SCH (09:58)
[2020-07-28] MEDS: KCL 10 MEQ IVPB 10 MEQ/100 ML INFUS.BAG IVPB SCH ×3 (10:02→15:33)
[2020-07-28 10:20] LABS: ANISOCYTOSIS 1+; MACROCYTOSIS 0; PLATELET ESTIMATE NORMAL
[2020-07-29] MEDS ORDERED: MEROPENEM 1 GM VIAL (RESTRICTED TO ID) IVPB ONE ×2 (05:41→16:52)
[2020-07-29] MEDS ORDERED: DEXTROSE 5%-WATER 100 ML IVPB ONE ×2 (05:42→16:52)
[2020-07-29] MEDS: MEROPENEM 1 GM in DEXTROSE 5%-WATER 100 ML IVPB SCH ×2 (05:45→17:27)
[2020-07-29 09:27] LABS: EOS % 1.4 % (0-4.5); HEMATOCRIT 44.3 % (32.4-45.2); HEMOGLOBIN 15.2 GM/dL (10.7-15.3); LYMPH % 5.8 % (8-40); MCH 31.2 pg (25.7-33.7); MCHC 34.4 g/dl (32.0-36.0); MEAN CELL VOLUME 90.9 fl (80-96); MEAN PLT VOLUME 8.4 fl (7.5-11.1); MONO % 2.3 % (3.8-10.2); NEUT % 90.5 % (42.8-82.8); PLATELET COUNT 222 K/MM3 (134-434); RBC 4.87 M/mm3 (3.60-5.2); WHITE BLOOD COUNT 9.8 K/mm3 (4.0-10.0)
[2020-07-29] MEDS: DEXAMETHASONE SOD PHOSPHATE 4 MG/1 ML VIAL IVPUSH SCH (09:44)
[2020-07-29] MEDS: CHOLECALCIFEROL (VIT D3) 1,000 UNIT (25 MCG) TABLET PO SCH (09:44)
[2020-07-29] MEDS: METOPROLOL TARTRATE 50 MG TABLET (FP) PO SCH ×2 (09:44→21:39)
[2020-07-29] MEDS: APIXABAN 5 MG TABLET PO SCH ×2 (09:44→21:39)
[2020-07-29] MEDS: ZINC SULFATE 220 MG CAPSULE (FP) PO SCH (09:44)
[2020-07-29] MEDS: ASCORBIC ACID 500 MG TABLET (FP) PO SCH (09:44)
[2020-07-29] MEDS: FAMOTIDINE 20 MG TABLET PO SCH (09:45)
[2020-07-29 09:49] LABS: POTASSIUM 3.6 mmol/L (3.5-5.1)
[2020-07-29 10:44] LABS: ALBUMIN 2.5 g/dl (3.4-5.0); BLOOD UREA NITROGEN 27.7 mg/dL (7-18); CALCIUM 7.7 mg/dL (8.5-10.1); MAGNESIUM 2.4 mg/dL (1.8-2.4)
[2020-07-29 10:45] LABS: CREATININE 0.9 mg/dL (0.55-1.3); PHOSPHOROUS 3.1 mg/dL (2.5-4.9)
[2020-07-29 10:46] LABS: BILIRUBIN,TOTAL 1.2 mg/dL (0.2-1); TOT PROT 6.5 g/dl (6.4-8.2)
[2020-07-29] MEDS: ACETAMINOPHEN 325 MG TABLET (FP) PO PRN (12:05)
[2020-07-29] MEDS ORDERED: TOCILIZUMAB IVPB ONE (14:30)
[2020-07-29] MEDS ORDERED: SODIUM CHLORIDE IVPB ONE (14:30)
[2020-07-30] MEDS: MEROPENEM 1 GM in DEXTROSE 5%-WATER 100 ML IVPB SCH ×2 (04:57→17:41)
[2020-07-30] MEDS ORDERED: MEROPENEM 1 GM VIAL (RESTRICTED TO ID) IVPB ONE ×2 (04:57→17:37)
[2020-07-30] MEDS ORDERED: DEXTROSE 5%-WATER 100 ML IVPB ONE ×2 (04:58→17:37)
[2020-07-30] MEDS: ZINC SULFATE 220 MG CAPSULE (FP) PO SCH (09:48)
[2020-07-30] MEDS: DEXAMETHASONE SOD PHOSPHATE 4 MG/1 ML VIAL IVPUSH SCH (09:48)
[2020-07-30] MEDS: METOPROLOL TARTRATE 50 MG TABLET (FP) PO SCH ×2 (09:48→21:16)
[2020-07-30] MEDS: CHOLECALCIFEROL (VIT D3) 1,000 UNIT (25 MCG) TABLET PO SCH (09:49)
[2020-07-30] MEDS: FAMOTIDINE 20 MG TABLET PO SCH (09:49)
[2020-07-30] MEDS: APIXABAN 5 MG TABLET PO SCH ×2 (09:49→21:16)
[2020-07-30] MEDS ORDERED: PT OWN MED DRAWER 7, Y5N ONE (09:51)
[2020-07-30] MEDS: ASCORBIC ACID 500 MG TABLET (FP) PO SCH (09:55)
[2020-07-30 12:07] LABS: BASO % 0.1 % (0-2.0); EOS % 1.2 % (0-4.5); HEMATOCRIT 45.3 % (32.4-45.2); HEMOGLOBIN 15.2 GM/dL (10.7-15.3); LYMPH % 3.7 % (8-40); MCH 30.9 pg (25.7-33.7); MCHC 33.4 g/dl (32.0-36.0); MEAN CELL VOLUME 92.3 fl (80-96); MONO % 1.8 % (3.8-10.2); NEUT % 93.2 % (42.8-82.8); RBC 4.91 M/mm3 (3.60-5.2); RDW 14.2 % (11.6-15.6); WHITE BLOOD COUNT 8.2 K/mm3 (4.0-10.0)
[2020-07-30 12:42] LABS: POTASSIUM 4.5 mmol/L (3.5-5.1)
[2020-07-30 12:45] LABS: ALBUMIN 2.6 g/dl (3.4-5.0)
[2020-07-30 12:49] LABS: BLOOD UREA NITROGEN 33.2 mg/dL (7-18)
[2020-07-30 12:51] LABS: CALCIUM 7.6 mg/dL (8.5-10.1); MAGNESIUM 2.5 mg/dL (1.8-2.4)
[2020-07-30 12:53] LABS: BILIRUBIN,TOTAL 1.6 mg/dL (0.2-1); PHOSPHOROUS 3.6 mg/dL (2.5-4.9)
[2020-07-30 12:54] LABS: TOT PROT 6.6 g/dl (6.4-8.2)
[2020-07-31] MEDS ORDERED: MEROPENEM 1 GM VIAL (RESTRICTED TO ID) IVPB ONE ×2 (05:19→17:11)
[2020-07-31] MEDS ORDERED: DEXTROSE 5%-WATER 100 ML IVPB ONE ×2 (05:20→17:11)
[2020-07-31] MEDS: MEROPENEM 1 GM in DEXTROSE 5%-WATER 100 ML IVPB SCH ×2 (05:23→17:16)
[2020-07-31 09:22] LABS: HEMATOCRIT 44.8 % (32.4-45.2); HEMOGLOBIN 15.3 GM/dL (10.7-15.3); MCH 31.4 pg (25.7-33.7); MCHC 34.1 g/dl (32.0-36.0); MEAN CELL VOLUME 92.2 fl (80-96); MEAN PLT VOLUME 8.8 fl (7.5-11.1); RBC 4.86 M/mm3 (3.60-5.2); WHITE BLOOD COUNT 9.1 K/mm3 (4.0-10.0)
[2020-07-31 09:24] LABS: PLATELET COUNT 208 K/MM3 (134-434)
[2020-07-31] MEDS: FAMOTIDINE 20 MG TABLET PO SCH (09:33)
[2020-07-31] MEDS: ZINC SULFATE 220 MG CAPSULE (FP) PO SCH (09:33)
[2020-07-31] MEDS: CHOLECALCIFEROL (VIT D3) 1,000 UNIT (25 MCG) TABLET PO SCH (09:33)
[2020-07-31] MEDS: METOPROLOL TARTRATE 50 MG TABLET (FP) PO SCH ×2 (09:33→21:35)
[2020-07-31] MEDS: DEXAMETHASONE SOD PHOSPHATE 4 MG/1 ML VIAL IVPUSH SCH (09:33)
[2020-07-31] MEDS: APIXABAN 5 MG TABLET PO SCH ×2 (09:33→21:35)
[2020-07-31] MEDS: ASCORBIC ACID 500 MG TABLET (FP) PO SCH (09:33)
[2020-07-31 10:43] LABS: ANISOCYTOSIS 0; HELMET CELLS 0; HOWELL-JOLLY BODIES 0; MACROCYTOSIS 0; OVALOCYTE 0; PLATELET ESTIMATE NORMAL; ROULEAU 0; SICKELED CELLS 0; TARGET CELLS 0; TEAR DROP CELLS 0; TOXIC GRANULATION 0
[2020-07-31 10:51] LABS: POTASSIUM 4.2 mmol/L (3.5-5.1)
[2020-07-31 10:53] LABS: ALBUMIN 2.4 g/dl (3.4-5.0); CALCIUM 7.8 mg/dL (8.5-10.1)
[2020-07-31 10:54] LABS: BLOOD UREA NITROGEN 36.6 mg/dL (7-18); MAGNESIUM 2.2 mg/dL (1.8-2.4)
[2020-07-31 10:56] LABS: PHOSPHOROUS 3.2 mg/dL (2.5-4.9)
[2020-07-31 10:57] LABS: CREATININE 0.9 mg/dL (0.55-1.3)
[2020-07-31 10:58] LABS: TOT PROT 6.3 g/dl (6.4-8.2)
[2020-07-31] MEDS: POLYETHYLENE GLYCOL 3350 119 GM BTL PO SCH (12:30)
[2020-07-31] MEDS ORDERED: METOPROLOL TARTRATE 25 MG TABLET (FP) PO ONE (15:00)
[2020-08-01] MEDS ORDERED: MEROPENEM 1 GM VIAL (RESTRICTED TO ID) IVPB ONE ×2 (04:50→17:33)
[2020-08-01] MEDS ORDERED: DEXTROSE 5%-WATER 100 ML IVPB ONE ×2 (04:51→17:33)
[2020-08-01] MEDS: MEROPENEM 1 GM in DEXTROSE 5%-WATER 100 ML IVPB SCH ×2 (05:00→17:37)
[2020-08-01 07:50] LABS: BASO % 0.1 % (0-2.0); EOS % 0.6 % (0-4.5); HEMATOCRIT 45.3 % (32.4-45.2); HEMOGLOBIN 15.5 GM/dL (10.7-15.3); LYMPH % 8.6 % (8-40); MCHC 34.2 g/dl (32.0-36.0); MEAN CELL VOLUME 90.8 fl (80-96); MEAN PLT VOLUME 8.3 fl (7.5-11.1); MONO % 5.7 % (3.8-10.2); PLATELET COUNT 259 K/MM3 (134-434); RBC 4.99 M/mm3 (3.60-5.2); RDW 13.8 % (11.6-15.6); WHITE BLOOD COUNT 7.6 K/mm3 (4.0-10.0)
[2020-08-01 08:18] LABS: POTASSIUM 4.3 mmol/L (3.5-5.1)
[2020-08-01 08:29] LABS: BLOOD UREA NITROGEN 34.1 mg/dL (7-18)
[2020-08-01 08:30] LABS: CALCIUM 7.6 mg/dL (8.5-10.1)
[2020-08-01 08:31] LABS: ALBUMIN 2.5 g/dl (3.4-5.0); MAGNESIUM 2.1 mg/dL (1.8-2.4)
[2020-08-01 08:32] LABS: CREATININE 0.9 mg/dL (0.55-1.3); PHOSPHOROUS 3.1 mg/dL (2.5-4.9)
[2020-08-01 08:34] LABS: BILIRUBIN,TOTAL 1.2 mg/dL (0.2-1); TOT PROT 6.2 g/dl (6.4-8.2)
[2020-08-01] MEDS: ZINC SULFATE 220 MG CAPSULE (FP) PO SCH (09:01)
[2020-08-01] MEDS: DEXAMETHASONE SOD PHOSPHATE 4 MG/1 ML VIAL IVPUSH SCH (09:01)
[2020-08-01] MEDS: APIXABAN 5 MG TABLET PO SCH ×2 (09:01→21:44)
[2020-08-01] MEDS: METOPROLOL TARTRATE 50 MG TABLET (FP) PO SCH ×2 (09:01→21:44)
[2020-08-01] MEDS: ASCORBIC ACID 500 MG TABLET (FP) PO SCH (09:01)
[2020-08-01] MEDS: POLYETHYLENE GLYCOL 3350 119 GM BTL PO SCH (09:02)
[2020-08-01] MEDS: CHOLECALCIFEROL (VIT D3) 1,000 UNIT (25 MCG) TABLET PO SCH (09:02)
[2020-08-01] MEDS: FAMOTIDINE 20 MG TABLET PO SCH (09:02)
[2020-08-01] MEDS: BUDESONIDE/FORMETEROL FUMARATE 160/4.5 mcg INHALER IH SCH ×2 (15:23→21:45)
[2020-08-02] MEDS ORDERED: MEROPENEM 1 GM VIAL (RESTRICTED TO ID) IVPB ONE ×2 (05:12→16:30)
[2020-08-02] MEDS ORDERED: DEXTROSE 5%-WATER 100 ML IVPB ONE ×2 (05:12→16:30)
[2020-08-02] MEDS: MEROPENEM 1 GM in DEXTROSE 5%-WATER 100 ML IVPB SCH ×2 (05:13→17:16)
[2020-08-02 07:10] LABS: BASO % 0.3 % (0-2.0); EOS % 0.6 % (0-4.5); HEMATOCRIT 44.5 % (32.4-45.2); HEMOGLOBIN 15.1 GM/dL (10.7-15.3); LYMPH % 10.2 % (8-40); MCH 31.2 pg (25.7-33.7); MEAN CELL VOLUME 91.7 fl (80-96); MEAN PLT VOLUME 8.5 fl (7.5-11.1); MONO % 6.8 % (3.8-10.2); NEUT % 82.1 % (42.8-82.8); PLATELET COUNT 215 K/MM3 (134-434); RBC 4.85 M/mm3 (3.60-5.2); RDW 14.1 % (11.6-15.6); WHITE BLOOD COUNT 6.8 K/mm3 (4.0-10.0)
[2020-08-02 07:49] LABS: ALBUMIN 2.4 g/dl (3.4-5.0); CALCIUM 7.9 mg/dL (8.5-10.1)
[2020-08-02 07:50] LABS: BILIRUBIN,TOTAL 1.2 mg/dL (0.2-1); BLOOD UREA NITROGEN 36.1 mg/dL (7-18); MAGNESIUM 2.3 mg/dL (1.8-2.4); TOT PROT 5.9 g/dl (6.4-8.2)
[2020-08-02 07:53] LABS: CREATININE 0.8 mg/dL (0.55-1.3); PHOSPHOROUS 3.5 mg/dL (2.5-4.9)
[2020-08-02] MEDS: METOPROLOL TARTRATE 50 MG TABLET (FP) PO SCH ×2 (10:02→22:27)
[2020-08-02] MEDS: DEXAMETHASONE SOD PHOSPHATE 4 MG/1 ML VIAL IVPUSH SCH (10:02)
[2020-08-02] MEDS: ZINC SULFATE 220 MG CAPSULE (FP) PO SCH (10:05)
[2020-08-02] MEDS: ASCORBIC ACID 500 MG TABLET (FP) PO SCH (10:05)
[2020-08-02] MEDS: APIXABAN 5 MG TABLET PO SCH ×2 (10:05→22:26)
[2020-08-02] MEDS: FAMOTIDINE 20 MG TABLET PO SCH (10:06)
[2020-08-02] MEDS: POLYETHYLENE GLYCOL 3350 119 GM BTL PO SCH (10:06)
[2020-08-02] MEDS: CHOLECALCIFEROL (VIT D3) 1,000 UNIT (25 MCG) TABLET PO SCH (10:06)
[2020-08-02] MEDS: BUDESONIDE/FORMETEROL FUMARATE 160/4.5 mcg INHALER IH SCH ×2 (10:06→22:27)
[2020-08-02] MEDS: ACETAMINOPHEN 325 MG TABLET (FP) PO PRN (13:07)
[2020-08-02] MEDS ORDERED: SENNOSIDES 8.6MG TABLET (FP) PO SCH (22:00)
[2020-08-03] MEDS ORDERED: MEROPENEM 1 GM VIAL (RESTRICTED TO ID) IVPB ONE ×2 (05:53→19:36)
[2020-08-03] MEDS ORDERED: DEXTROSE 5%-WATER 100 ML IVPB ONE ×2 (05:54→19:36)
[2020-08-03] MEDS: MEROPENEM 1 GM in DEXTROSE 5%-WATER 100 ML IVPB SCH ×2 (06:01→19:37)
[2020-08-03 06:59] LABS: BASO % 0.5 % (0-2.0); HEMOGLOBIN 15.6 GM/dL (10.7-15.3); LYMPH % 9.5 % (8-40); MCH 31.7 pg (25.7-33.7); MCHC 34.7 g/dl (32.0-36.0); MEAN CELL VOLUME 91.2 fl (80-96); MEAN PLT VOLUME 8.2 fl (7.5-11.1); MONO % 6.4 % (3.8-10.2); NEUT % 83.6 % (42.8-82.8); PLATELET COUNT 221 K/MM3 (134-434); RBC 4.93 M/mm3 (3.60-5.2); RDW 14.2 % (11.6-15.6); WHITE BLOOD COUNT 9.7 K/mm3 (4.0-10.0)
[2020-08-03 07:41] LABS: POTASSIUM 4.4 mmol/L (3.5-5.1)
[2020-08-03 07:48] LABS: CALCIUM 8.4 mg/dL (8.5-10.1)
[2020-08-03 07:49] LABS: ALBUMIN 2.7 g/dl (3.4-5.0); BLOOD UREA NITROGEN 41.6 mg/dL (7-18); MAGNESIUM 2.4 mg/dL (1.8-2.4)
[2020-08-03 07:51] LABS: TOT PROT 6.3 g/dl (6.4-8.2)
[2020-08-03 07:52] LABS: PHOSPHOROUS 3.5 mg/dL (2.5-4.9)
[2020-08-03] MEDS: predniSONE 20 MG TABLET (UD) PO SCH (09:48)
[2020-08-03] MEDS: FAMOTIDINE 20 MG TABLET PO SCH (09:48)
[2020-08-03] MEDS: APIXABAN 5 MG TABLET PO SCH ×2 (09:49→22:22)
[2020-08-03] MEDS: METOPROLOL TARTRATE 50 MG TABLET (FP) PO SCH ×2 (09:49→22:22)
[2020-08-03] MEDS: BUDESONIDE/FORMETEROL FUMARATE 160/4.5 mcg INHALER IH SCH ×2 (09:51→22:26)
[2020-08-03] MEDS: CHOLECALCIFEROL (VIT D3) 1,000 UNIT (25 MCG) TABLET PO SCH (09:51)
[2020-08-03] MEDS: POLYETHYLENE GLYCOL 3350 119 GM BTL PO SCH (13:29)
[2020-08-03] MEDS: ACETAMINOPHEN 325 MG TABLET (FP) PO PRN (13:38)
[2020-08-03] MEDS ORDERED: MINERAL OIL ENEMA 133 ML ENEMA PR ONE (19:31)
[2020-08-04] MEDS: MEROPENEM 1 GM in DEXTROSE 5%-WATER 100 ML IVPB SCH ×2 (05:28→17:17)
[2020-08-04] MEDS ORDERED: DEXTROSE 5%-WATER 100 ML IVPB ONE ×2 (05:59→17:12)
[2020-08-04] MEDS ORDERED: MEROPENEM 1 GM VIAL (RESTRICTED TO ID) IVPB ONE ×2 (05:59→17:12)
[2020-08-04] MEDS ORDERED: MINERAL OIL ENEMA 133 ML ENEMA PR ONE (06:00)
[2020-08-04 07:19] LABS: BASO % 0.5 % (0-2.0); HEMATOCRIT 43.7 % (32.4-45.2); LYMPH % 16.6 % (8-40); MCH 31.3 pg (25.7-33.7); MCHC 34.3 g/dl (32.0-36.0); MEAN CELL VOLUME 91.2 fl (80-96); MONO % 8.1 % (3.8-10.2); NEUT % 73.8 % (42.8-82.8); PLATELET COUNT 179 K/MM3 (134-434); RBC 4.79 M/mm3 (3.60-5.2); RDW 14.1 % (11.6-15.6); WHITE BLOOD COUNT 6.5 K/mm3 (4.0-10.0)
[2020-08-04 07:30] LABS: CHLORIDE 110 mmol/L (98-107); POTASSIUM 3.9 mmol/L (3.5-5.1); SODIUM 142 mmol/L (136-145)
[2020-08-04 07:35] LABS: CALCIUM 7.8 mg/dL (8.5-10.1)
[2020-08-04 07:36] LABS: ALBUMIN 2.5 g/dl (3.4-5.0); ANION GAP 7 MMOL/L (8-16); BLOOD UREA NITROGEN 37.4 mg/dL (7-18); CO2 25 mmol/L (21-32); GLUCOSE,RANDOM 89 mg/dL (74-106); MAGNESIUM 2.3 mg/dL (1.8-2.4)
[2020-08-04 07:39] LABS: CREATININE 0.9 mg/dL (0.55-1.3); SGOT/AST 19 U/L (15-37); SGPT/ALT 26 U/L (13-61)
[2020-08-04 07:40] LABS: BILIRUBIN,TOTAL 1.6 mg/dL (0.2-1); TOT PROT 5.7 g/dl (6.4-8.2)
[2020-08-04 07:41] LABS: LDH 344 U/L (84-246)
[2020-08-04 07:42] LABS: ALK PHOS 78 U/L (45-117)
[2020-08-04] MEDS: APIXABAN 5 MG TABLET PO SCH ×2 (09:22→21:26)
[2020-08-04] MEDS: METOPROLOL TARTRATE 50 MG TABLET (FP) PO SCH ×2 (09:22→21:25)
[2020-08-04] MEDS: POLYETHYLENE GLYCOL 3350 119 GM BTL PO SCH ×2 (09:22→21:26)
[2020-08-04] MEDS: predniSONE 20 MG TABLET (UD) PO SCH (09:22)
[2020-08-04] MEDS: CHOLECALCIFEROL (VIT D3) 1,000 UNIT (25 MCG) TABLET PO SCH (09:23)
[2020-08-04] MEDS: FAMOTIDINE 20 MG TABLET PO SCH (09:23)
[2020-08-04] MEDS: BUDESONIDE/FORMETEROL FUMARATE 160/4.5 mcg INHALER IH SCH ×2 (09:23→21:26)
[2020-08-04] MEDS ORDERED: LACTULOSE 20 GM/30 ML UDC (FOR ORAL USE ONLY) PO ONE (16:22)
[2020-08-05] MEDS ORDERED: MEROPENEM 1 GM VIAL (RESTRICTED TO ID) IVPB ONE ×2 (05:35→16:30)
[2020-08-05] MEDS ORDERED: DEXTROSE 5%-WATER 100 ML IVPB ONE ×2 (05:35→16:30)
[2020-08-05] MEDS: MEROPENEM 1 GM in DEXTROSE 5%-WATER 100 ML IVPB SCH ×2 (05:37→17:39)
[2020-08-05 07:41] LABS: BASO % 0.8 % (0-2.0); EOS % 0.9 % (0-4.5); HEMATOCRIT 45.1 % (32.4-45.2); HEMOGLOBIN 15.4 GM/dL (10.7-15.3); LYMPH % 17.2 % (8-40); MCH 31.6 pg (25.7-33.7); MCHC 34.2 g/dl (32.0-36.0); MEAN CELL VOLUME 92.5 fl (80-96); MEAN PLT VOLUME 8.4 fl (7.5-11.1); MONO % 9.6 % (3.8-10.2); NEUT % 71.5 % (42.8-82.8); PLATELET COUNT 174 K/MM3 (134-434); RBC 4.87 M/mm3 (3.60-5.2); RDW 13.8 % (11.6-15.6); WHITE BLOOD COUNT 6.5 K/mm3 (4.0-10.0)
[2020-08-05 08:04] LABS: CHLORIDE 108 mmol/L (98-107); SODIUM 143 mmol/L (136-145)
[2020-08-05 08:05] LABS: ANION GAP 6 MMOL/L (8-16); BLOOD UREA NITROGEN 32.7 mg/dL (7-18); CALCIUM 8.5 mg/dL (8.5-10.1); CO2 30 mmol/L (21-32); GLUCOSE,RANDOM 98 mg/dL (74-106)
[2020-08-05 08:08] LABS: CREATININE 1.1 mg/dL (0.55-1.3)
[2020-08-05] MEDS: POLYETHYLENE GLYCOL 3350 119 GM BTL PO SCH ×2 (09:44→21:14)
[2020-08-05] MEDS: METOPROLOL TARTRATE 50 MG TABLET (FP) PO SCH ×2 (09:45→21:14)
[2020-08-05] MEDS: CHOLECALCIFEROL (VIT D3) 1,000 UNIT (25 MCG) TABLET PO SCH (09:45)
[2020-08-05] MEDS: FAMOTIDINE 20 MG TABLET PO SCH (09:45)
[2020-08-05] MEDS: APIXABAN 5 MG TABLET PO SCH ×2 (09:45→21:14)
[2020-08-05] MEDS: BUDESONIDE/FORMETEROL FUMARATE 160/4.5 mcg INHALER IH SCH ×2 (09:46→21:14)
[2020-08-05] MEDS ORDERED: predniSONE 10 MG TABLET (UD) PO SCH (10:00)
[2020-08-05] MEDS: ACETAMINOPHEN 325 MG TABLET (FP) PO PRN (21:24)
[2020-08-06] MEDS ORDERED: MEROPENEM 1 GM VIAL (RESTRICTED TO ID) IVPB ONE ×2 (05:26→17:06)
[2020-08-06] MEDS ORDERED: DEXTROSE 5%-WATER 100 ML IVPB ONE ×2 (05:26→17:07)
[2020-08-06] MEDS: MEROPENEM 1 GM in DEXTROSE 5%-WATER 100 ML IVPB SCH ×2 (05:28→17:27)
[2020-08-06] MEDS ORDERED: PT OWN MED DRAWER 7, Y5N ONE (09:04)
[2020-08-06] MEDS: APIXABAN 5 MG TABLET PO SCH ×2 (09:20→21:19)
[2020-08-06] MEDS: METOPROLOL TARTRATE 50 MG TABLET (FP) PO SCH ×2 (09:20→21:19)
[2020-08-06] MEDS: FAMOTIDINE 20 MG TABLET PO SCH (09:21)
[2020-08-06] MEDS: POLYETHYLENE GLYCOL 3350 119 GM BTL PO SCH ×2 (09:21→21:20)
[2020-08-06] MEDS: CHOLECALCIFEROL (VIT D3) 1,000 UNIT (25 MCG) TABLET PO SCH (09:21)
[2020-08-06] MEDS: BUDESONIDE/FORMETEROL FUMARATE 160/4.5 mcg INHALER IH SCH ×2 (09:48→21:20)
[2020-08-06] MEDS: ACETAMINOPHEN 325 MG TABLET (FP) PO PRN (21:20)
[2020-08-07] MEDS ORDERED: MEROPENEM 1 GM VIAL (RESTRICTED TO ID) IVPB ONE (05:22)
[2020-08-07] MEDS ORDERED: DEXTROSE 5%-WATER 100 ML IVPB ONE (05:23)
[2020-08-07] MEDS: MEROPENEM 1 GM in DEXTROSE 5%-WATER 100 ML IVPB SCH (05:33)
[2020-08-07] MEDS ORDERED: PT OWN MED DRAWER 7, Y5N ONE (10:22)
[2020-08-07] MEDS: APIXABAN 5 MG TABLET PO SCH ×2 (10:23→21:59)
[2020-08-07] MEDS: METOPROLOL TARTRATE 50 MG TABLET (FP) PO SCH ×2 (10:23→21:59)
[2020-08-07] MEDS: CHOLECALCIFEROL (VIT D3) 1,000 UNIT (25 MCG) TABLET PO SCH (10:24)
[2020-08-07] MEDS: BUDESONIDE/FORMETEROL FUMARATE 160/4.5 mcg INHALER IH SCH ×2 (10:24→21:59)
[2020-08-07] MEDS: FAMOTIDINE 20 MG TABLET PO SCH (10:25)
[2020-08-07] MEDS: POLYETHYLENE GLYCOL 3350 119 GM BTL PO SCH ×2 (10:26→21:59)
[2020-08-08 10:06] LABS: BASO % 1.6 % (0-2.0); EOS % 4.4 % (0-4.5); HEMATOCRIT 48.1 % (32.4-45.2); HEMOGLOBIN 16.4 GM/dL (10.7-15.3); LYMPH % 22.4 % (8-40); MCH 31.6 pg (25.7-33.7); MCHC 34.2 g/dl (32.0-36.0); MEAN CELL VOLUME 92.4 fl (80-96); MEAN PLT VOLUME 8.7 fl (7.5-11.1); MONO % 9.2 % (3.8-10.2); NEUT % 62.4 % (42.8-82.8); PLATELET COUNT 127 K/MM3 (134-434); RDW 14.2 % (11.6-15.6); WHITE BLOOD COUNT 4.7 K/mm3 (4.0-10.0)
[2020-08-08] MEDS ORDERED: PT OWN MED DRAWER 7, Y5N ONE (10:06)
[2020-08-08] MEDS: POLYETHYLENE GLYCOL 3350 119 GM BTL PO SCH ×2 (10:12→21:00)
[2020-08-08] MEDS: METOPROLOL TARTRATE 50 MG TABLET (FP) PO SCH ×2 (10:13→21:00)
[2020-08-08] MEDS: FAMOTIDINE 20 MG TABLET PO SCH (10:13)
[2020-08-08] MEDS: APIXABAN 5 MG TABLET PO SCH ×2 (10:13→21:00)
[2020-08-08] MEDS: BUDESONIDE/FORMETEROL FUMARATE 160/4.5 mcg INHALER IH SCH ×2 (10:13→21:00)
[2020-08-08] MEDS: CHOLECALCIFEROL (VIT D3) 1,000 UNIT (25 MCG) TABLET PO SCH (10:13)
[2020-08-08 10:30] LABS: CHLORIDE 105 mmol/L (98-107); POTASSIUM 4.3 mmol/L (3.5-5.1); SODIUM 139 mmol/L (136-145)
[2020-08-08 10:32] LABS: ANION GAP 4 MMOL/L (8-16); BLOOD UREA NITROGEN 28.8 mg/dL (7-18); CALCIUM 8.4 mg/dL (8.5-10.1); CO2 30 mmol/L (21-32); GLUCOSE,RANDOM 118 mg/dL (74-106); MAGNESIUM 2.4 mg/dL (1.8-2.4)
[2020-08-08 10:35] LABS: CREATININE 1.2 mg/dL (0.55-1.3); PHOSPHOROUS 3.5 mg/dL (2.5-4.9); SGOT/AST 25 U/L (15-37); SGPT/ALT 27 U/L (13-61)
[2020-08-08 10:37] LABS: BILIRUBIN,TOTAL 1.8 mg/dL (0.2-1); TOT PROT 6.4 g/dl (6.4-8.2)
[2020-08-08 10:41] LABS: ALK PHOS 88 U/L (45-117)
[2020-08-08] MEDS: ACETAMINOPHEN 325 MG TABLET (FP) PO PRN (21:08)
[2020-08-09 08:34] LABS: HEMATOCRIT 45.7 % (32.4-45.2); HEMOGLOBIN 15.5 GM/dL (10.7-15.3); LYMPH % 24.2 % (8-40); MCH 31.5 pg (25.7-33.7); MEAN CELL VOLUME 92.8 fl (80-96); MEAN PLT VOLUME 8.9 fl (7.5-11.1); MONO % 11.4 % (3.8-10.2); NEUT % 58.4 % (42.8-82.8); PLATELET COUNT 97 K/MM3 (134-434); RBC 4.93 M/mm3 (3.60-5.2); RDW 14.6 % (11.6-15.6)
[2020-08-09 08:50] LABS: CHLORIDE 108 mmol/L (98-107); POTASSIUM 4.1 mmol/L (3.5-5.1); SODIUM 142 mmol/L (136-145)
[2020-08-09 09:05] LABS: BLOOD UREA NITROGEN 37.9 mg/dL (7-18)
[2020-08-09 09:06] LABS: ANION GAP 6 MMOL/L (8-16); CALCIUM 8.7 mg/dL (8.5-10.1); CO2 29 mmol/L (21-32); GLUCOSE,RANDOM 93 mg/dL (74-106); MAGNESIUM 2.4 mg/dL (1.8-2.4)
[2020-08-09 09:09] LABS: CREATININE 1.2 mg/dL (0.55-1.3); PHOSPHOROUS 3.7 mg/dL (2.5-4.9); SGOT/AST 22 U/L (15-37); SGPT/ALT 26 U/L (13-61)
[2020-08-09 09:10] LABS: BILIRUBIN,TOTAL 1.3 mg/dL (0.2-1); TOT PROT 6.3 g/dl (6.4-8.2)
[2020-08-09 09:12] LABS: ALK PHOS 90 U/L (45-117)
[2020-08-09] MEDS: METOPROLOL TARTRATE 50 MG TABLET (FP) PO SCH ×2 (10:17→21:47)
[2020-08-09] MEDS: CHOLECALCIFEROL (VIT D3) 1,000 UNIT (25 MCG) TABLET PO SCH (10:18)
[2020-08-09] MEDS: APIXABAN 5 MG TABLET PO SCH ×2 (10:18→21:47)
[2020-08-09] MEDS: FAMOTIDINE 20 MG TABLET PO SCH (10:20)
[2020-08-09] MEDS: POLYETHYLENE GLYCOL 3350 119 GM BTL PO SCH ×2 (10:20→21:47)
[2020-08-09] MEDS: BUDESONIDE/FORMETEROL FUMARATE 160/4.5 mcg INHALER IH SCH ×2 (10:21→21:47)
[2020-08-10 07:52] LABS: BASO % 1.2 % (0-2.0); EOS % 6.3 % (0-4.5); HEMOGLOBIN 15.2 GM/dL (10.7-15.3); LYMPH % 26.1 % (8-40); MCH 31.7 pg (25.7-33.7); MCHC 34.4 g/dl (32.0-36.0); MEAN CELL VOLUME 92.1 fl (80-96); MEAN PLT VOLUME 8.7 fl (7.5-11.1); MONO % 9.9 % (3.8-10.2); NEUT % 56.5 % (42.8-82.8); PLATELET COUNT 93 K/MM3 (134-434); RBC 4.78 M/mm3 (3.60-5.2); RDW 14.1 % (11.6-15.6); WHITE BLOOD COUNT 3.8 K/mm3 (4.0-10.0)
[2020-08-10 07:55] LABS: CHLORIDE 111 mmol/L (98-107); POTASSIUM 3.5 mmol/L (3.5-5.1); SODIUM 143 mmol/L (136-145)
[2020-08-10 07:59] LABS: ANION GAP 7 MMOL/L (8-16); CALCIUM 8.3 mg/dL (8.5-10.1); CO2 25 mmol/L (21-32); GLUCOSE,RANDOM 88 mg/dL (74-106)
[2020-08-10 08:01] LABS: ALBUMIN 2.8 g/dl (3.4-5.0); BLOOD UREA NITROGEN 29.4 mg/dL (7-18); MAGNESIUM 2.4 mg/dL (1.8-2.4)
[2020-08-10 08:03] LABS: PHOSPHOROUS 3.5 mg/dL (2.5-4.9); SGPT/ALT 26 U/L (13-61)
[2020-08-10 08:04] LABS: BILIRUBIN,TOTAL 1.3 mg/dL (0.2-1); SGOT/AST 21 U/L (15-37); TOT PROT 5.9 g/dl (6.4-8.2)
[2020-08-10 08:05] LABS: ALK PHOS 83 U/L (45-117)
[2020-08-10] MEDS ORDERED: PT OWN MED DRAWER 7, Y5N ONE (10:27)
[2020-08-10] MEDS: APIXABAN 5 MG TABLET PO SCH ×2 (10:29→21:21)
[2020-08-10] MEDS: METOPROLOL TARTRATE 50 MG TABLET (FP) PO SCH ×2 (10:29→21:21)
[2020-08-10] MEDS: POLYETHYLENE GLYCOL 3350 119 GM BTL PO SCH ×2 (10:30→21:09)
[2020-08-10] MEDS: CHOLECALCIFEROL (VIT D3) 1,000 UNIT (25 MCG) TABLET PO SCH (10:30)
[2020-08-10] MEDS: BUDESONIDE/FORMETEROL FUMARATE 160/4.5 mcg INHALER IH SCH ×2 (10:30→21:21)
[2020-08-10] MEDS: FAMOTIDINE 20 MG TABLET PO SCH (10:30)
[2020-08-11] MEDS: METOPROLOL TARTRATE 50 MG TABLET (FP) PO SCH ×2 (09:46→21:43)
[2020-08-11] MEDS: FAMOTIDINE 20 MG TABLET PO SCH (09:46)
[2020-08-11] MEDS: BUDESONIDE/FORMETEROL FUMARATE 160/4.5 mcg INHALER IH SCH ×2 (09:46→21:46)
[2020-08-11] MEDS: CHOLECALCIFEROL (VIT D3) 1,000 UNIT (25 MCG) TABLET PO SCH (09:46)
[2020-08-11] MEDS: APIXABAN 5 MG TABLET PO SCH ×2 (09:46→21:45)
[2020-08-11] MEDS: POLYETHYLENE GLYCOL 3350 119 GM BTL PO SCH ×2 (14:47→21:46)
[2020-08-12 07:47] LABS: BASO % 0.7 % (0-2.0); EOS % 5.6 % (0-4.5); HEMATOCRIT 46.6 % (32.4-45.2); HEMOGLOBIN 15.6 GM/dL (10.7-15.3); LYMPH % 29.2 % (8-40); MCH 31.5 pg (25.7-33.7); MCHC 33.4 g/dl (32.0-36.0); MEAN CELL VOLUME 94.3 fl (80-96); MEAN PLT VOLUME 9.2 fl (7.5-11.1); MONO % 13.2 % (3.8-10.2); NEUT % 51.3 % (42.8-82.8); PLATELET COUNT 68 K/MM3 (134-434); RBC 4.94 M/mm3 (3.60-5.2); RDW 14.6 % (11.6-15.6); WHITE BLOOD COUNT 3.7 K/mm3 (4.0-10.0)
[2020-08-12 08:04] LABS: ALBUMIN 3.1 g/dl (3.4-5.0); BILIRUBIN,TOTAL 1.5 mg/dL (0.2-1); BLOOD UREA NITROGEN 27.7 mg/dL (7-18); CALCIUM 8.5 mg/dL (8.5-10.1); CREATININE 1.1 mg/dL (0.55-1.3); MAGNESIUM 2.4 mg/dL (1.8-2.4); PHOSPHOROUS 3.5 mg/dL (2.5-4.9); POTASSIUM 3.8 mmol/L (3.5-5.1); TOT PROT 6.1 g/dl (6.4-8.2)
[2020-08-12] MEDS ORDERED: PT OWN MED DRAWER 7, Y5N ONE (10:21)
[2020-08-12] MEDS: FAMOTIDINE 20 MG TABLET PO SCH (10:30)
[2020-08-12] MEDS: APIXABAN 5 MG TABLET PO SCH (10:30)
[2020-08-12] MEDS: CHOLECALCIFEROL (VIT D3) 1,000 UNIT (25 MCG) TABLET PO SCH (10:30)
[2020-08-12] MEDS: METOPROLOL TARTRATE 50 MG TABLET (FP) PO SCH ×2 (10:33→22:21)
[2020-08-12] MEDS: BUDESONIDE/FORMETEROL FUMARATE 160/4.5 mcg INHALER IH SCH ×2 (10:33→22:23)
[2020-08-12] MEDS: POLYETHYLENE GLYCOL 3350 119 GM BTL PO SCH ×2 (10:33→22:23)
[2020-08-12 13:32] LABS: INR 1.73 (0.83-1.09); PROTHROMBIN TIME (PATIENT) 20.6 SEC (9.7-13.0)
[2020-08-12] MEDS ORDERED: WARFARIN NA 5 MG TABLET PO ONE (18:00)
[2020-08-13 07:37] LABS: BASO % 1.3 % (0-2.0); EOS % 6.8 % (0-4.5); HEMATOCRIT 44.4 % (32.4-45.2); HEMOGLOBIN 15.1 GM/dL (10.7-15.3); LYMPH % 31.6 % (8-40); MCH 31.6 pg (25.7-33.7); MCHC 34.1 g/dl (32.0-36.0); MEAN CELL VOLUME 92.8 fl (80-96); MONO % 13.5 % (3.8-10.2); NEUT % 46.8 % (42.8-82.8); PLATELET COUNT 79 K/MM3 (134-434); RBC 4.78 M/mm3 (3.60-5.2); RDW 14.2 % (11.6-15.6); WHITE BLOOD COUNT 3.4 K/mm3 (4.0-10.0)
[2020-08-13 07:44] LABS: INR 1.37 (0.83-1.09); PROTHROMBIN TIME (PATIENT) 16.4 SEC (9.7-13.0)
[2020-08-13 08:03] LABS: POTASSIUM 4.4 mmol/L (3.5-5.1)
[2020-08-13 08:13] LABS: CALCIUM 8.5 mg/dL (8.5-10.1)
[2020-08-13 08:16] LABS: CREATININE 1.1 mg/dL (0.55-1.3)
[2020-08-13] MEDS: METOPROLOL TARTRATE 50 MG TABLET (FP) PO SCH ×2 (09:08→21:18)
[2020-08-13] MEDS: FAMOTIDINE 20 MG TABLET PO SCH (09:08)
[2020-08-13] MEDS: POLYETHYLENE GLYCOL 3350 119 GM BTL PO SCH ×2 (09:08→21:20)
[2020-08-13] MEDS: CHOLECALCIFEROL (VIT D3) 1,000 UNIT (25 MCG) TABLET PO SCH (09:08)
[2020-08-13] MEDS: BUDESONIDE/FORMETEROL FUMARATE 160/4.5 mcg INHALER IH SCH ×2 (09:09→21:20)
[2020-08-13] MEDS: ENOXAPARIN NA (PORCINE) 100 MG/1 ML DISP.SYRIN SQ SCH ×2 (10:34→21:20)
[2020-08-13] MEDS: WARFARIN NA 2.5 MG TABLET PO SCH (17:13)
[2020-08-14 08:58] LABS: BASO % 1.2 % (0-2.0); EOS % 5.6 % (0-4.5); HEMATOCRIT 43.8 % (32.4-45.2); HEMOGLOBIN 14.9 GM/dL (10.7-15.3); LYMPH % 30.8 % (8-40); MCH 31.8 pg (25.7-33.7); MEAN CELL VOLUME 93.6 fl (80-96); NEUT % 48.4 % (42.8-82.8); PLATELET COUNT 75 K/MM3 (134-434); RBC 4.68 M/mm3 (3.60-5.2); RDW 14.9 % (11.6-15.6); WHITE BLOOD COUNT 2.9 K/mm3 (4.0-10.0)
[2020-08-14 09:02] LABS: INR 2.78 (0.83-1.09); PROTHROMBIN TIME (PATIENT) 32.7 SEC (9.7-13.0)
[2020-08-14] MEDS: FAMOTIDINE 20 MG TABLET PO SCH (09:48)
[2020-08-14] MEDS: CHOLECALCIFEROL (VIT D3) 1,000 UNIT (25 MCG) TABLET PO SCH (09:48)
[2020-08-14] MEDS: METOPROLOL TARTRATE 50 MG TABLET (FP) PO SCH ×2 (09:48→21:06)
[2020-08-14] MEDS: POLYETHYLENE GLYCOL 3350 119 GM BTL PO SCH ×2 (09:49→21:06)
[2020-08-14] MEDS: ENOXAPARIN NA (PORCINE) 100 MG/1 ML DISP.SYRIN SQ SCH (09:49)
[2020-08-14] MEDS: BUDESONIDE/FORMETEROL FUMARATE 160/4.5 mcg INHALER IH SCH ×2 (09:50→21:06)
[2020-08-14 10:01] LABS: BLOOD UREA NITROGEN 23.4 mg/dL (7-18); CALCIUM 8.7 mg/dL (8.5-10.1); CREATININE 1.3 mg/dL (0.55-1.3); POTASSIUM 4.7 mmol/L (3.5-5.1)
[2020-08-14] MEDS: WARFARIN NA 2.5 MG TABLET PO SCH (17:18)
[2020-08-15 07:47] LABS: BASO % 1.3 % (0-2.0); EOS % 5.9 % (0-4.5); HEMATOCRIT 44.9 % (32.4-45.2); HEMOGLOBIN 15.3 GM/dL (10.7-15.3); LYMPH % 35.8 % (8-40); MCH 31.7 pg (25.7-33.7); MCHC 34.1 g/dl (32.0-36.0); MEAN PLT VOLUME 8.8 fl (7.5-11.1); MONO % 12.8 % (3.8-10.2); NEUT % 44.2 % (42.8-82.8); PLATELET COUNT 80 K/MM3 (134-434); RBC 4.83 M/mm3 (3.60-5.2); RDW 14.9 % (11.6-15.6); WHITE BLOOD COUNT 3.1 K/mm3 (4.0-10.0)
[2020-08-15 07:53] LABS: INR 3.39 (0.83-1.09); PROTHROMBIN TIME (PATIENT) 39.6 SEC (9.7-13.0)
[2020-08-15 08:28] LABS: ALBUMIN 3.2 g/dl (3.4-5.0); BILIRUBIN,TOTAL 1.1 mg/dL (0.2-1); BLOOD UREA NITROGEN 21.7 mg/dL (7-18); CALCIUM 8.4 mg/dL (8.5-10.1); CREATININE 1.3 mg/dL (0.55-1.3); MAGNESIUM 2.3 mg/dL (1.8-2.4); PHOSPHOROUS 3.4 mg/dL (2.5-4.9); POTASSIUM 4.6 mmol/L (3.5-5.1); TOT PROT 6.3 g/dl (6.4-8.2)
[2020-08-15] MEDS: CHOLECALCIFEROL (VIT D3) 1,000 UNIT (25 MCG) TABLET PO SCH (10:33)
[2020-08-15] MEDS: FAMOTIDINE 20 MG TABLET PO SCH (10:33)
[2020-08-15] MEDS: METOPROLOL TARTRATE 50 MG TABLET (FP) PO SCH ×2 (10:33→22:06)
[2020-08-15] MEDS: POLYETHYLENE GLYCOL 3350 119 GM BTL PO SCH ×2 (10:34→22:06)
[2020-08-15] MEDS: BUDESONIDE/FORMETEROL FUMARATE 160/4.5 mcg INHALER IH SCH ×2 (10:40→22:06)
[2020-08-15] MEDS ORDERED: WARFARIN NA 1 MG TABLET PO ONE (18:00)
[2020-08-16 07:14] LABS: HEMATOCRIT 43.4 % (32.4-45.2); LYMPH % 33.7 % (8-40); MCH 32.1 pg (25.7-33.7); MCHC 34.5 g/dl (32.0-36.0); MEAN CELL VOLUME 93.1 fl (80-96); MEAN PLT VOLUME 8.5 fl (7.5-11.1); MONO % 12.2 % (3.8-10.2); NEUT % 47.1 % (42.8-82.8); PLATELET COUNT 83 K/MM3 (134-434); RBC 4.67 M/mm3 (3.60-5.2); RDW 15.4 % (11.6-15.6); WHITE BLOOD COUNT 3.7 K/mm3 (4.0-10.0)
[2020-08-16 07:24] LABS: POTASSIUM 4.1 mmol/L (3.5-5.1)
[2020-08-16 07:26] LABS: CALCIUM 8.4 mg/dL (8.5-10.1); INR 3.53 (0.83-1.09); PROTHROMBIN TIME (PATIENT) 41.9 SEC (9.7-13.0)
[2020-08-16 07:27] LABS: ALBUMIN 3.1 g/dl (3.4-5.0); BLOOD UREA NITROGEN 23.8 mg/dL (7-18); MAGNESIUM 2.4 mg/dL (1.8-2.4)
[2020-08-16 07:28] LABS: ACTIVATED PTT 50.8 SECONDS (25.2-36.5)
[2020-08-16 07:30] LABS: CREATININE 1.4 mg/dL (0.55-1.3); PHOSPHOROUS 3.1 mg/dL (2.5-4.9)
[2020-08-16] MEDS: CHOLECALCIFEROL (VIT D3) 1,000 UNIT (25 MCG) TABLET PO SCH (11:33)
[2020-08-16] MEDS: FAMOTIDINE 20 MG TABLET PO SCH (11:33)
[2020-08-16] MEDS: METOPROLOL TARTRATE 50 MG TABLET (FP) PO SCH ×2 (11:33→21:29)
[2020-08-16] MEDS: BUDESONIDE/FORMETEROL FUMARATE 160/4.5 mcg INHALER IH SCH ×2 (11:35→21:30)
[2020-08-16] MEDS: POLYETHYLENE GLYCOL 3350 119 GM BTL PO SCH ×2 (11:35→21:30)
[2020-08-16] MEDS ORDERED: WARFARIN NA 1 MG TABLET PO ONE (18:00)
[2020-08-17] MEDS ORDERED: SODIUM CHLORIDE 0.45% 500 ML IV SCH (04:00)
[2020-08-17 07:01] LABS: BASO % 1.5 % (0-2.0); EOS % 6.1 % (0-4.5); HEMATOCRIT 41.8 % (32.4-45.2); HEMOGLOBIN 14.2 GM/dL (10.7-15.3); LYMPH % 30.2 % (8-40); MCH 31.9 pg (25.7-33.7); MEAN CELL VOLUME 93.6 fl (80-96); MEAN PLT VOLUME 8.6 fl (7.5-11.1); MONO % 12.3 % (3.8-10.2); NEUT % 49.9 % (42.8-82.8); PLATELET COUNT 74 K/MM3 (134-434); RBC 4.47 M/mm3 (3.60-5.2); WHITE BLOOD COUNT 3.9 K/mm3 (4.0-10.0)
[2020-08-17 07:43] LABS: INR 2.94 (0.83-1.09); PROTHROMBIN TIME (PATIENT) 34.5 SEC (9.7-13.0)
[2020-08-17 07:44] LABS: ALBUMIN 3.1 g/dl (3.4-5.0); BILIRUBIN,TOTAL 1.1 mg/dL (0.2-1); BLOOD UREA NITROGEN 22.1 mg/dL (7-18); CALCIUM 8.4 mg/dL (8.5-10.1); CREATININE 1.3 mg/dL (0.55-1.3); MAGNESIUM 2.4 mg/dL (1.8-2.4); PHOSPHOROUS 4.2 mg/dL (2.5-4.9); POTASSIUM 3.5 mmol/L (3.5-5.1); TOT PROT 6.2 g/dl (6.4-8.2)
[2020-08-17 08:41] LABS: ACTIVATED PTT 52.8 SECONDS (25.2-36.5)
[2020-08-17] MEDS: CHOLECALCIFEROL (VIT D3) 1,000 UNIT (25 MCG) TABLET PO SCH (11:04)
[2020-08-17] MEDS: FAMOTIDINE 20 MG TABLET PO SCH (11:04)
[2020-08-17] MEDS: METOPROLOL TARTRATE 50 MG TABLET (FP) PO SCH ×2 (11:04→21:32)
[2020-08-17] MEDS: POLYETHYLENE GLYCOL 3350 119 GM BTL PO SCH ×2 (11:04→21:29)
[2020-08-17] MEDS: BUDESONIDE/FORMETEROL FUMARATE 160/4.5 mcg INHALER IH SCH ×2 (11:07→21:33)
[2020-08-17] MEDS: WARFARIN NA 2 MG TABLET PO SCH (17:24)
[2020-08-18 08:55] LABS: BASO % 0.8 % (0-2.0); EOS % 5.7 % (0-4.5); HEMOGLOBIN 15.1 GM/dL (10.7-15.3); LYMPH % 34.8 % (8-40); MCHC 34.3 g/dl (32.0-36.0); MEAN CELL VOLUME 93.2 fl (80-96); MEAN PLT VOLUME 8.5 fl (7.5-11.1); MONO % 11.4 % (3.8-10.2); NEUT % 47.3 % (42.8-82.8); PLATELET COUNT 82 K/MM3 (134-434); RBC 4.72 M/mm3 (3.60-5.2); RDW 15.9 % (11.6-15.6); WHITE BLOOD COUNT 3.5 K/mm3 (4.0-10.0)
[2020-08-18 09:53] LABS: ALBUMIN 3.2 g/dl (3.4-5.0); BLOOD UREA NITROGEN 21.3 mg/dL (7-18); CALCIUM 8.3 mg/dL (8.5-10.1); MAGNESIUM 2.4 mg/dL (1.8-2.4)
[2020-08-18 09:55] LABS: CREATININE 1.1 mg/dL (0.55-1.3)
[2020-08-18 09:56] LABS: PHOSPHOROUS 3.8 mg/dL (2.5-4.9)
[2020-08-18 09:57] LABS: BILIRUBIN,TOTAL 1.3 mg/dL (0.2-1)
[2020-08-18] MEDS: METOPROLOL TARTRATE 50 MG TABLET (FP) PO SCH ×2 (09:57→21:35)
[2020-08-18] MEDS: BUDESONIDE/FORMETEROL FUMARATE 160/4.5 mcg INHALER IH SCH ×2 (09:58→21:36)
[2020-08-18] MEDS: CHOLECALCIFEROL (VIT D3) 1,000 UNIT (25 MCG) TABLET PO SCH (09:58)
[2020-08-18] MEDS: POLYETHYLENE GLYCOL 3350 119 GM BTL PO SCH ×2 (09:58→21:36)
[2020-08-18] MEDS: FAMOTIDINE 20 MG TABLET PO SCH (09:58)
[2020-08-18 10:02] LABS: POTASSIUM 3.7 mmol/L (3.5-5.1)
[2020-08-18] MEDS: WARFARIN NA 2 MG TABLET PO SCH (18:54)
[2020-08-19 06:57] LABS: BASO % 1.2 % (0-2.0); EOS % 3.7 % (0-4.5); HEMATOCRIT 42.9 % (32.4-45.2); HEMOGLOBIN 14.5 GM/dL (10.7-15.3); LYMPH % 35.3 % (8-40); MCH 31.9 pg (25.7-33.7); MCHC 33.9 g/dl (32.0-36.0); MEAN CELL VOLUME 94.3 fl (80-96); MEAN PLT VOLUME 8.9 fl (7.5-11.1); MONO % 12.9 % (3.8-10.2); NEUT % 46.9 % (42.8-82.8); PLATELET COUNT 87 K/MM3 (134-434); RBC 4.55 M/mm3 (3.60-5.2); RDW 15.5 % (11.6-15.6); WHITE BLOOD COUNT 3.6 K/mm3 (4.0-10.0)
[2020-08-19 07:05] LABS: INR 2.96 (0.83-1.09); PROTHROMBIN TIME (PATIENT) 35.3 SEC (9.7-13.0)
[2020-08-19 07:22] LABS: POTASSIUM 3.6 mmol/L (3.5-5.1)
[2020-08-19 07:25] LABS: CALCIUM 8.3 mg/dL (8.5-10.1)
[2020-08-19 07:29] LABS: CREATININE 1.2 mg/dL (0.55-1.3)
[2020-08-19] MEDS: METOPROLOL TARTRATE 50 MG TABLET (FP) PO SCH ×2 (11:35→21:41)
[2020-08-19] MEDS: POLYETHYLENE GLYCOL 3350 119 GM BTL PO SCH ×2 (11:35→21:42)
[2020-08-19] MEDS: CHOLECALCIFEROL (VIT D3) 1,000 UNIT (25 MCG) TABLET PO SCH (11:36)
[2020-08-19] MEDS: BUDESONIDE/FORMETEROL FUMARATE 160/4.5 mcg INHALER IH SCH ×2 (11:36→21:42)
[2020-08-19] MEDS: FAMOTIDINE 20 MG TABLET PO SCH (11:36)
[2020-08-19 15:13] VITALS: BP 134/84; PULSE 91; TEMP 98.8
[2020-08-19] MEDS: WARFARIN NA 2 MG TABLET PO SCH (18:36)
== END 2020-08-19 22:50 | DRG 137 ==
LOC: JER 22:39 → JERBED 23:55 → J5WEST-2 07-22 22:23 → J4S 07-24 23:41
PROVIDERS: ADMIT Internal Medicine; ATTEND Student in an Organized Health Care Education/Training Program
PROC: XW033E5 Introduction of Remdesivir Anti-infective into Peripheral Vein, Percutaneous Approach, New Technology Group 5 (ICD-10-PCS; 2020-07-22)
PROC: XW13325 Transfusion of Convalescent Plasma (Nonautologous) into Peripheral Vein, Percutaneous Approach, New Technology Group 5 (ICD-10-PCS; 2020-07-23)
PROC: XW033H5 Introduction of Tocilizumab into Peripheral Vein, Percutaneous Approach, New Technology Group 5 (ICD-10-PCS; principal; 2020-07-29)
DX: U07.1 COVID-19 (principal); J12.82 Pneumonia due to coronavirus disease 2019; J96.01 Acute respiratory failure with hypoxia; D50.0 Iron deficiency anemia secondary to blood loss (chronic); N18.9 Chronic kidney disease, unspecified; I13.0 Hypertensive heart and chronic kidney disease with heart failure and stage 1 through stage 4 chronic kidney disease, or unspecified chronic kidney disease; E66.9 Obesity, unspecified; Z68.35 Body mass index [BMI] 35.0-35.9, adult; E78.5 Hyperlipidemia, unspecified; G47.30 Sleep apnea, unspecified; A08.39 Other viral enteritis; R51.9 Headache, unspecified; N17.9 Acute kidney failure, unspecified; B96.20 Unspecified Escherichia coli [E. coli] as the cause of diseases classified elsewhere; E87.6 Hypokalemia; I48.19 Other persistent atrial fibrillation; I08.0 Rheumatic disorders of both mitral and aortic valves; F41.8 Other specified anxiety disorders; E86.0 Dehydration; F32.9 Major depressive disorder, single episode, unspecified; N39.0 Urinary tract infection, site not specified; I27.20 Pulmonary hypertension, unspecified; I71.2 Thoracic aortic aneurysm, without rupture; R60.0 Localized edema; R91.1 Solitary pulmonary nodule; K59.09 Other constipation; I50.32 Chronic diastolic (congestive) heart failure; G93.40 Encephalopathy, unspecified; M35.89 Other specified systemic involvement of connective tissue; Z91.89 Other specified personal risk factors, not elsewhere classified; Z96.653 Presence of artificial knee joint, bilateral
CPT/HCPCS: 36415; 36430; 71045-TC-FY; 71250-TC; 74018-TC-FY; 80048; 80053; 80061; 80162; 81003; 82248; 82436; 82550; 82565; 82728; 82803; 83036; 83605; 83615; 83690; 83721; 83735; 83880; 84100; 84133; 84300; 84484; 85025; 85027; 85379; 85610; 85730; 86140; 86850; 86870; 86900; 86901; 86902; 87040; 87086; 87186; 87804; 93005; 93010; 93971-TC; 94761; 97116-GP; 97161-GP; 99285-25; C9399; C9803; J3262; P9017; U0003

== ENCOUNTER 2021-04-26 01:21 | Inpatient (IN) | payer OTHER ==
[2021-04-26 02:30] LABS: BASO % 1.3 % (0-2.0); EOS % 1.2 % (0-4.5); HEMATOCRIT 41.8 % (32.4-45.2); HEMOGLOBIN 14.8 GM/dL (10.7-15.3); LYMPH % 29.1 % (8-40); MCH 33.4 pg (25.7-33.7); MCHC 35.5 g/dl (32.0-36.0); MEAN CELL VOLUME 94.3 fl (80-96); MEAN PLT VOLUME 7.1 fl (7.5-11.1); MONO % 7.7 % (3.8-10.2); NEUT % 60.7 % (42.8-82.8); PLATELET COUNT 171 10^3/uL (134-434); RBC 4.43 M/mm3 (3.60-5.2); RDW 12.9 % (11.6-15.6); WHITE BLOOD COUNT 7.5 K/mm3 (4.0-10.0)
[2021-04-26 02:52] LABS: CHLORIDE 103 mmol/L (98-107); SODIUM 140 mmol/L (136-145)
[2021-04-26 02:54] LABS: CALCIUM 8.4 mg/dL (8.5-10.1)
[2021-04-26 02:55] LABS: ALBUMIN 3.5 g/dl (3.4-5.0); ANION GAP 7 MMOL/L (8-16); BLOOD UREA NITROGEN 27.3 mg/dL (7-18); CO2 30 mmol/L (21-32); GLUCOSE,RANDOM 141 mg/dL (74-106)
[2021-04-26 02:58] LABS: CREATININE 1.5 mg/dL (0.55-1.3); SGOT/AST 18 U/L (15-37); SGPT/ALT 20 U/L (13-61)
[2021-04-26 02:59] LABS: BILIRUBIN,TOTAL 0.6 mg/dL (0.2-1); TOT PROT 7.4 g/dl (6.4-8.2)
[2021-04-26 03:01] LABS: ALK PHOS 107 U/L (45-117)
[2021-04-26 03:35] LABS: INR 1.07 (0.83-1.09)
[2021-04-26 03:37] LABS: ACTIVATED PTT 28.4 SECONDS (25.2-36.5)
[2021-04-26] MEDS ORDERED: ASPIRIN 81 MG CHEWABLE TABLETS PO ONE (03:44)
[2021-04-26 03:46] LABS: N-TERMINAL BNP 3257.5 pg/ml (5-450)
[2021-04-26] MEDS ORDERED: ACETAMINOPHEN 1000 MG/100 ML BAG IVPB ONE (04:00)
[2021-04-26] MEDS ORDERED: FUROSEMIDE 40 MG/4 ML INJECTABLE VIAL IVPUSH ONE (04:02)
[2021-04-26] MEDS ORDERED: METOPROLOL TARTRATE 50 MG TABLET (FP) PO SCH (04:09)
[2021-04-26] MEDS ORDERED: ACETAMINOPHEN INJECTION 100 ML IVPB ONE (04:19)
[2021-04-26] MEDS ORDERED: ASPIRIN 81 MG CHEWABLE TABLETS ONE (04:19)
[2021-04-26] MEDS ORDERED: FUROSEMIDE 40 MG/4 ML INJECTABLE VIAL ONE (04:20)
[2021-04-26] MEDS ORDERED: HEPARIN NA (PORCINE) 5,000 UNITS/ML 1ML VIAL SQ SCH (06:00)
[2021-04-26 07:19] LABS: EPI CELLS 30 /uL (0-25.1); HYALINE CASTS 2 /uL (0-3.1); URINE APPEARANCE CLOUDY; URINE BACTERIA >9,000 /uL (0-1359); URINE BILIRUBIN NEGATIVE (NEGATIVE); URINE COLOR YELLOW; URINE GLUCOSE (UA) NEGATIVE (NEGATIVE); URINE KETONE NEGATIVE (NEGATIVE); URINE LEUK ESTERASE 2+ (NEGATIVE); URINE NITRITE NEGATIVE (NEGATIVE); URINE PROTEIN 1+ (NEGATIVE); URINE RBC 5 /uL (0-23.9); URINE UROBILINOGEN 0.2 mg/dL (0.2-1.0); URINE WBC 509 /uL (0-25.8)
[2021-04-26 07:27] LABS: BASO % 0.7 % (0-2.0); EOS % 1.5 % (0-4.5); HEMATOCRIT 41.4 % (32.4-45.2); HEMOGLOBIN 14.6 GM/dL (10.7-15.3); LYMPH % 32.6 % (8-40); MCH 33.6 pg (25.7-33.7); MCHC 35.2 g/dl (32.0-36.0); MEAN CELL VOLUME 95.6 fl (80-96); MEAN PLT VOLUME 7.8 fl (7.5-11.1); MONO % 6.6 % (3.8-10.2); NEUT % 58.6 % (42.8-82.8); PLATELET COUNT 170 10^3/uL (134-434); RBC 4.33 M/mm3 (3.60-5.2); WHITE BLOOD COUNT 8.5 K/mm3 (4.0-10.0)
[2021-04-26 07:47] LABS: BLOOD UREA NITROGEN 28.3 mg/dL (7-18)
[2021-04-26 07:49] LABS: ALBUMIN 3.5 g/dl (3.4-5.0); CALCIUM 8.1 mg/dL (8.5-10.1); MAGNESIUM 2.2 mg/dL (1.8-2.4)
[2021-04-26 07:50] LABS: CREATININE 1.3 mg/dL (0.55-1.3); PHOSPHOROUS 3.3 mg/dL (2.5-4.9)
[2021-04-26 07:52] LABS: TOT PROT 7.1 g/dl (6.4-8.2)
[2021-04-26] MEDS ORDERED: DIGOXIN 0.125 MG TABLET ONE (07:52)
[2021-04-26] MEDS ORDERED: LISINOPRIL 5 MG TABLET ONE (07:52)
[2021-04-26] MEDS ORDERED: ESCITALOPRAM OXALATE 10 MG TABLET ONE (07:53)
[2021-04-26 07:54] LABS: BILIRUBIN,TOTAL 0.7 mg/dL (0.2-1)
[2021-04-26] MEDS: LISINOPRIL 10 MG TABLET PO SCH (07:55)
[2021-04-26] MEDS ORDERED: POTASSIUM CHLORIDE TABS 20 MEQ TABLET.ER (FP) PO ONE ×2 (08:51→09:00)
[2021-04-26] MEDS ORDERED: METOPROLOL TARTRATE 50 MG, METOPROLOL TARTRATE 25 MG PO SCH (10:00)
[2021-04-26] MEDS ORDERED: ENOXAPARIN NA (PORCINE) 80 MG/0.8 ML DISP.SYRIN SQ SCH (10:00)
[2021-04-26] MEDS ORDERED: ENOXAPARIN NA (PORCINE) 40 MG/0.4 ML DISP.SYRIN SQ SCH ×2 (10:00→11:00)
[2021-04-26] MEDS: DIGOXIN 0.125 MG TABLET PO SCH (10:12)
[2021-04-26] MEDS: ESCITALOPRAM OXALATE 10 MG TABLET PO SCH (10:15)
[2021-04-26] MEDS: INSULIN SLIDING SCALE (NOVOLOG) 1 VIAL SQ SCH ×3 (11:30→21:51)
[2021-04-26] MEDS ORDERED: cefTRIAXone SODIUM 1 GM VIAL ONE (16:10)
[2021-04-26] MEDS ORDERED: DEXTROSE 5%-WATER - 50 ML IVPB ONE (16:10)
[2021-04-26] MEDS: CEFTRIAXONE 1 GM in DEXTROSE 5%-WATER - 50 ML IVPB SCH (16:14)
[2021-04-26] MEDS ORDERED: PNEUMOC 13-VAL CONJ-DIP CRM/PF 0.5 ML DISP.SYRIN IM ONE (16:43)
[2021-04-26] MEDS ORDERED: FLU VACC QS2021-22(6MOS UP)/PF 60 MCG/0.5 ML SYRINGE IM ONE (16:44)
[2021-04-26] MEDS: WARFARIN NA 2 MG TABLET PO SCH (18:03)
[2021-04-26] MEDS ORDERED: ACETAMINOPHEN 325 MG TABLET (FP) ONE (23:31)
[2021-04-27] MEDS ORDERED: ACETAMINOPHEN 325 MG TABLET (FP) PO ONE ×3 (02:40→20:20)
[2021-04-27] MEDS: INSULIN SLIDING SCALE (NOVOLOG) 1 VIAL SQ SCH ×4 (06:09→21:16)
[2021-04-27] MEDS: LISINOPRIL 10 MG TABLET PO SCH (07:49)
[2021-04-27 07:50] LABS: HEMATOCRIT 43.7 % (32.4-45.2); HEMOGLOBIN 15.3 GM/dL (10.7-15.3); MCH 33.5 pg (25.7-33.7); MEAN CELL VOLUME 95.7 fl (80-96); MEAN PLT VOLUME 7.6 fl (7.5-11.1); PLATELET COUNT 158 10^3/uL (134-434); RBC 4.57 M/mm3 (3.60-5.2); RDW 12.8 % (11.6-15.6); WHITE BLOOD COUNT 9.6 K/mm3 (4.0-10.0)
[2021-04-27 07:52] LABS: INR 1.03 (0.83-1.09); PROTHROMBIN TIME (PATIENT) 12.1 SEC (9.7-13.0)
[2021-04-27 08:08] LABS: CALCIUM 8.6 mg/dL (8.5-10.1)
[2021-04-27 08:09] LABS: ALBUMIN 3.4 g/dl (3.4-5.0); BLOOD UREA NITROGEN 29.7 mg/dL (7-18); MAGNESIUM 2.4 mg/dL (1.8-2.4)
[2021-04-27 08:12] LABS: CREATININE 1.4 mg/dL (0.55-1.3)
[2021-04-27 08:13] LABS: BILIRUBIN,TOTAL 0.9 mg/dL (0.2-1); TOT PROT 7.3 g/dl (6.4-8.2)
[2021-04-27] MEDS ORDERED: cefTRIAXone SODIUM 1 GM VIAL ONE (09:29)
[2021-04-27] MEDS ORDERED: DEXTROSE 5%-WATER - 50 ML IVPB ONE (09:29)
[2021-04-27] MEDS ORDERED: REGADENOSON 0.4 MG/5 ML PRE-FILLED SYRINGE IVPUSH ONE ×2 (09:33→10:00)
[2021-04-27] MEDS: ONDANSETRON 4 MG/2 ML VIAL IVPUSH PRN ×2 (10:01→15:37)
[2021-04-27 10:36] LABS: ANISOCYTOSIS 1+; MACROCYTOSIS 0; PLATELET ESTIMATE DECREASED
[2021-04-27] MEDS: CEFTRIAXONE 1 GM in DEXTROSE 5%-WATER - 50 ML IVPB SCH (11:53)
[2021-04-27] MEDS: DIGOXIN 0.125 MG TABLET PO SCH (11:54)
[2021-04-27] MEDS: ESCITALOPRAM OXALATE 10 MG TABLET PO SCH (11:54)
[2021-04-27] MEDS ORDERED: METOPROLOL TARTRATE 5 MG/5 ML VIAL IVPUSH ONE (15:04)
[2021-04-27] MEDS ORDERED: METOPROLOL TARTRATE 50 MG TABLET (FP) PO ONE (15:05)
[2021-04-27] MEDS: WARFARIN NA 2 MG TABLET PO SCH (17:46)
[2021-04-27] MEDS: METOPROLOL TARTRATE 50 MG TABLET (FP) PO SCH (21:13)
[2021-04-28] MEDS: LISINOPRIL 10 MG TABLET PO SCH (06:11)
[2021-04-28] MEDS: INSULIN SLIDING SCALE (NOVOLOG) 1 VIAL SQ SCH ×4 (06:11→21:04)
[2021-04-28 08:12] LABS: BASO % 0.7 % (0-2.0); EOS % 2.8 % (0-4.5); HEMATOCRIT 43.9 % (32.4-45.2); HEMOGLOBIN 15.1 GM/dL (10.7-15.3); LYMPH % 30.3 % (8-40); MCH 33.4 pg (25.7-33.7); MCHC 34.4 g/dl (32.0-36.0); MEAN CELL VOLUME 97.1 fl (80-96); MEAN PLT VOLUME 7.9 fl (7.5-11.1); MONO % 7.6 % (3.8-10.2); NEUT % 58.6 % (42.8-82.8); PLATELET COUNT 171 10^3/uL (134-434); RBC 4.53 M/mm3 (3.60-5.2); RDW 12.8 % (11.6-15.6); WHITE BLOOD COUNT 6.7 K/mm3 (4.0-10.0)
[2021-04-28 08:34] LABS: ALBUMIN 3.6 g/dl (3.4-5.0); BLOOD UREA NITROGEN 37.3 mg/dL (7-18); CALCIUM 8.8 mg/dL (8.5-10.1)
[2021-04-28 08:35] LABS: MAGNESIUM 2.7 mg/dL (1.8-2.4)
[2021-04-28 08:38] LABS: CREATININE 1.7 mg/dL (0.55-1.3)
[2021-04-28 08:39] LABS: BILIRUBIN,TOTAL 0.8 mg/dL (0.2-1); TOT PROT 7.5 g/dl (6.4-8.2)
[2021-04-28 08:47] LABS: INR 1.14 (0.83-1.09); PROTHROMBIN TIME (PATIENT) 12.8 SEC (9.7-13.0)
[2021-04-28] MEDS ORDERED: cefTRIAXone SODIUM 1 GM VIAL ONE (09:20)
[2021-04-28] MEDS ORDERED: DEXTROSE 5%-WATER - 50 ML IVPB ONE (09:20)
[2021-04-28] MEDS: ESCITALOPRAM OXALATE 10 MG TABLET PO SCH (09:28)
[2021-04-28] MEDS: DIGOXIN 0.125 MG TABLET PO SCH (09:28)
[2021-04-28] MEDS: METOPROLOL TARTRATE 50 MG TABLET (FP) PO SCH ×2 (09:28→21:03)
[2021-04-28] MEDS: CEFTRIAXONE 1 GM in DEXTROSE 5%-WATER - 50 ML IVPB SCH (09:28)
[2021-04-28] MEDS: ENOXAPARIN NA (PORCINE) 100 MG/1 ML DISP.SYRIN SQ SCH ×2 (09:30→21:03)
[2021-04-28] MEDS ORDERED: MEROPENEM 1 GM in DEXTROSE 5%-WATER 100 ML IVPB SCH (12:45)
[2021-04-28] MEDS: WARFARIN NA 5 MG TABLET PO SCH (18:03)
[2021-04-28] MEDS ORDERED: MEROPENEM 1 GM VIAL (RESTRICTED TO ID) IVPB ONE (21:00)
[2021-04-28] MEDS ORDERED: DEXTROSE 5%-WATER 100 ML IVPB ONE (21:01)
[2021-04-28] MEDS: MEROPENEM 1 GM in DEXTROSE 5%-WATER 100 ML IVPB SCH (21:03)
[2021-04-29] MEDS: INSULIN SLIDING SCALE (NOVOLOG) 1 VIAL SQ SCH ×4 (06:27→22:15)
[2021-04-29] MEDS: LISINOPRIL 10 MG TABLET PO SCH (06:28)
[2021-04-29 08:21] LABS: ALBUMIN 3.2 g/dl (3.4-5.0); BLOOD UREA NITROGEN 39.6 mg/dL (7-18); CALCIUM 8.5 mg/dL (8.5-10.1)
[2021-04-29 08:22] LABS: BASO % 0.9 % (0-2.0); EOS % 2.4 % (0-4.5); HEMATOCRIT 40.5 % (32.4-45.2); HEMOGLOBIN 14.5 GM/dL (10.7-15.3); LYMPH % 33.8 % (8-40); MAGNESIUM 2.8 mg/dL (1.8-2.4); MCH 33.8 pg (25.7-33.7); MCHC 35.8 g/dl (32.0-36.0); MEAN CELL VOLUME 94.4 fl (80-96); MEAN PLT VOLUME 7.9 fl (7.5-11.1); NEUT % 56.9 % (42.8-82.8); PLATELET COUNT 166 10^3/uL (134-434); RBC 4.29 M/mm3 (3.60-5.2); RDW 12.9 % (11.6-15.6)
[2021-04-29 08:24] LABS: CREATININE 1.5 mg/dL (0.55-1.3)
[2021-04-29 08:26] LABS: BILIRUBIN,TOTAL 0.5 mg/dL (0.2-1); INR 1.29 (0.83-1.09); PROTHROMBIN TIME (PATIENT) 15.1 SEC (9.7-13.0)
[2021-04-29] MEDS ORDERED: MEROPENEM 1 GM VIAL (RESTRICTED TO ID) IVPB ONE ×2 (08:45→22:08)
[2021-04-29] MEDS ORDERED: DEXTROSE 5%-WATER 100 ML IVPB ONE ×2 (08:45→22:08)
[2021-04-29] MEDS: MEROPENEM 1 GM in DEXTROSE 5%-WATER 100 ML IVPB SCH ×2 (09:00→22:15)
[2021-04-29] MEDS: ESCITALOPRAM OXALATE 10 MG TABLET PO SCH (09:00)
[2021-04-29] MEDS: DIGOXIN 0.125 MG TABLET PO SCH (09:00)
[2021-04-29] MEDS: ENOXAPARIN NA (PORCINE) 100 MG/1 ML DISP.SYRIN SQ SCH ×2 (09:00→22:15)
[2021-04-29] MEDS: WARFARIN NA 5 MG TABLET PO SCH (17:26)
[2021-04-29] MEDS: ACETAMINOPHEN 325 MG TABLET (FP) PO PRN (18:56)
[2021-04-30] MEDS: traMADol HCL 50 MG TABLET PO PRN (05:50)
[2021-04-30] MEDS: LISINOPRIL 10 MG TABLET PO SCH (06:06)
[2021-04-30] MEDS: INSULIN SLIDING SCALE (NOVOLOG) 1 VIAL SQ SCH ×4 (06:06→21:48)
[2021-04-30] MEDS: ACETAMINOPHEN 325 MG TABLET (FP) PO PRN ×2 (06:59→19:50)
[2021-04-30] MEDS ORDERED: MEROPENEM 1 GM VIAL (RESTRICTED TO ID) IVPB ONE ×2 (09:25→21:28)
[2021-04-30] MEDS ORDERED: DEXTROSE 5%-WATER 100 ML IVPB ONE ×2 (09:26→21:28)
[2021-04-30] MEDS: DIGOXIN 0.125 MG TABLET PO SCH (09:29)
[2021-04-30] MEDS: ENOXAPARIN NA (PORCINE) 100 MG/1 ML DISP.SYRIN SQ SCH ×2 (09:29→21:47)
[2021-04-30] MEDS: ESCITALOPRAM OXALATE 10 MG TABLET PO SCH (09:29)
[2021-04-30] MEDS: MEROPENEM 1 GM in DEXTROSE 5%-WATER 100 ML IVPB SCH ×2 (09:33→21:47)
[2021-04-30] MEDS ORDERED: MELATONIN 5 MG TABLETS PO PRN (15:35)
[2021-04-30 19:39] LABS: EOS % 2.8 % (0-4.5); HEMATOCRIT 41.4 % (32.4-45.2); HEMOGLOBIN 14.5 GM/dL (10.7-15.3); LYMPH % 21.7 % (8-40); MCH 33.8 pg (25.7-33.7); MCHC 35.1 g/dl (32.0-36.0); MEAN CELL VOLUME 96.4 fl (80-96); MEAN PLT VOLUME 8.3 fl (7.5-11.1); MONO % 9.4 % (3.8-10.2); NEUT % 65.1 % (42.8-82.8); PLATELET COUNT 155 10^3/uL (134-434); RBC 4.29 M/mm3 (3.60-5.2); RDW 13.1 % (11.6-15.6); WHITE BLOOD COUNT 5.2 K/mm3 (4.0-10.0)
[2021-04-30 19:44] LABS: INR 2.81 (0.83-1.09); PROTHROMBIN TIME (PATIENT) 31.8 SEC (9.7-13.0)
[2021-04-30] MEDS: WARFARIN NA 5 MG TABLET PO SCH (19:50)
[2021-04-30 20:07] LABS: ALBUMIN 3.2 g/dl (3.4-5.0); BLOOD UREA NITROGEN 33.7 mg/dL (7-18); CALCIUM 8.6 mg/dL (8.5-10.1)
[2021-04-30 20:08] LABS: MAGNESIUM 2.7 mg/dL (1.8-2.4)
[2021-04-30 20:11] LABS: CREATININE 1.4 mg/dL (0.55-1.3)
[2021-04-30 20:13] LABS: BILIRUBIN,TOTAL 0.3 mg/dL (0.2-1); TOT PROT 6.9 g/dl (6.4-8.2)
[2021-04-30 20:58] VITALS: BMI 33.5
[2021-05-01] MEDS: INSULIN SLIDING SCALE (NOVOLOG) 1 VIAL SQ SCH ×4 (06:34→21:46)
[2021-05-01] MEDS: LISINOPRIL 10 MG TABLET PO SCH (06:47)
[2021-05-01] MEDS: ONDANSETRON 4 MG/2 ML VIAL IVPUSH PRN (06:47)
[2021-05-01] MEDS: AMINO ACIDS/PROTEIN HYDROLYS 30 ML LIQUID.PKT PO SCH (07:55)
[2021-05-01] MEDS ORDERED: DEXTROSE 5%-WATER 100 ML IVPB ONE ×2 (08:44→21:37)
[2021-05-01] MEDS ORDERED: MEROPENEM 1 GM VIAL (RESTRICTED TO ID) IVPB ONE ×2 (08:44→21:37)
[2021-05-01] MEDS: ESCITALOPRAM OXALATE 10 MG TABLET PO SCH (09:12)
[2021-05-01] MEDS: MULTIVITAMINS (DAILY MVI) TABLET (FP) PO SCH (09:12)
[2021-05-01] MEDS: MEROPENEM 1 GM in DEXTROSE 5%-WATER 100 ML IVPB SCH ×2 (09:12→21:46)
[2021-05-01] MEDS: ENOXAPARIN NA (PORCINE) 100 MG/1 ML DISP.SYRIN SQ SCH (09:12)
[2021-05-01] MEDS: DIGOXIN 0.125 MG TABLET PO SCH (09:12)
[2021-05-01] MEDS: ACETAMINOPHEN 325 MG TABLET (FP) PO PRN (12:23)
[2021-05-01] MEDS: LACTOBACILLUS ACIDOPHILUS 1 TABLET PO SCH (12:23)
[2021-05-01 17:55] LABS: BASO % 1.2 % (0-2.0); EOS % 2.1 % (0-4.5); HEMATOCRIT 42.4 % (32.4-45.2); HEMOGLOBIN 14.8 GM/dL (10.7-15.3); LYMPH % 32.9 % (8-40); MCHC 34.9 g/dl (32.0-36.0); MEAN CELL VOLUME 97.4 fl (80-96); MONO % 9.6 % (3.8-10.2); NEUT % 54.2 % (42.8-82.8); PLATELET COUNT 170 10^3/uL (134-434); RBC 4.36 M/mm3 (3.60-5.2); RDW 13.4 % (11.6-15.6); WHITE BLOOD COUNT 5.3 K/mm3 (4.0-10.0)
[2021-05-01 18:02] LABS: PROTHROMBIN TIME (PATIENT) 52.2 SEC (9.7-13.0)
[2021-05-01 18:14] LABS: ALBUMIN 3.1 g/dl (3.4-5.0)
[2021-05-01 18:15] LABS: BLOOD UREA NITROGEN 26.6 mg/dL (7-18); CALCIUM 8.4 mg/dL (8.5-10.1); MAGNESIUM 2.6 mg/dL (1.8-2.4)
[2021-05-01 18:18] LABS: CREATININE 1.2 mg/dL (0.55-1.3)
[2021-05-01 18:19] LABS: BILIRUBIN,TOTAL 0.4 mg/dL (0.2-1); TOT PROT 6.7 g/dl (6.4-8.2)
[2021-05-01 18:32] LABS: INR 4.35 (0.83-1.09)
[2021-05-01] MEDS: WARFARIN NA 5 MG TABLET PO SCH (18:36)
[2021-05-01] MEDS: traMADol HCL 50 MG TABLET PO PRN (18:42)
[2021-05-02] MEDS: ACETAMINOPHEN 325 MG TABLET (FP) PO PRN (06:20)
[2021-05-02] MEDS: LISINOPRIL 10 MG TABLET PO SCH (06:20)
[2021-05-02] MEDS: INSULIN SLIDING SCALE (NOVOLOG) 1 VIAL SQ SCH ×3 (06:23→16:07)
[2021-05-02] MEDS ORDERED: MEROPENEM 1 GM VIAL (RESTRICTED TO ID) IVPB ONE (10:43)
[2021-05-02] MEDS ORDERED: DEXTROSE 5%-WATER 100 ML IVPB ONE (10:43)
[2021-05-02] MEDS: LACTOBACILLUS ACIDOPHILUS 1 TABLET PO SCH (10:53)
[2021-05-02] MEDS: AMINO ACIDS/PROTEIN HYDROLYS 30 ML LIQUID.PKT PO SCH (10:54)
[2021-05-02] MEDS: ESCITALOPRAM OXALATE 10 MG TABLET PO SCH (10:54)
[2021-05-02] MEDS: MEROPENEM 1 GM in DEXTROSE 5%-WATER 100 ML IVPB SCH (10:54)
[2021-05-02] MEDS: DIGOXIN 0.125 MG TABLET PO SCH (10:54)
[2021-05-02] MEDS: MULTIVITAMINS (DAILY MVI) TABLET (FP) PO SCH (10:55)
[2021-05-02 10:58] LABS: BASO % 0.6 % (0-2.0); EOS % 1.7 % (0-4.5); HEMOGLOBIN 15.1 GM/dL (10.7-15.3); LYMPH % 34.4 % (8-40); MCH 33.2 pg (25.7-33.7); MCHC 34.2 g/dl (32.0-36.0); MEAN CELL VOLUME 97.2 fl (80-96); MEAN PLT VOLUME 7.5 fl (7.5-11.1); NEUT % 54.3 % (42.8-82.8); PLATELET COUNT 177 10^3/uL (134-434); RBC 4.53 M/mm3 (3.60-5.2); RDW 13.3 % (11.6-15.6); WHITE BLOOD COUNT 6.5 K/mm3 (4.0-10.0)
[2021-05-02 11:05] LABS: INR 3.29 (0.83-1.09); PROTHROMBIN TIME (PATIENT) 37.3 SEC (9.7-13.0)
[2021-05-02 11:17] LABS: BLOOD UREA NITROGEN 24.2 mg/dL (7-18); CALCIUM 8.5 mg/dL (8.5-10.1)
[2021-05-02 11:18] LABS: ALBUMIN 3.2 g/dl (3.4-5.0)
[2021-05-02 11:21] LABS: CREATININE 1.3 mg/dL (0.55-1.3)
[2021-05-02 11:22] LABS: BILIRUBIN,TOTAL 0.4 mg/dL (0.2-1); TOT PROT 7.2 g/dl (6.4-8.2)
[2021-05-02] MEDS ORDERED: ERTAPENEM SODIUM 1 GM in SODIUM CHLORIDE 50 ML IVPB ONE (17:00)
[2021-05-02 17:42] VITALS: BP 144/81; PULSE 84; TEMP 98.5
== END 2021-05-02 19:10 | disposition home or self-care (01) | DRG 463 ==
LOC: JER 01:21 → INTOOBSV 03:54 → JERBED 03:54 → J4S 14:35 → OBSVTOIN 04-28 14:36
PROVIDERS: ATTEND Nurse Practitioner Family
DX: N39.0 Urinary tract infection, site not specified (principal); I48.20 Chronic atrial fibrillation, unspecified; N17.9 Acute kidney failure, unspecified; I13.0 Hypertensive heart and chronic kidney disease with heart failure and stage 1 through stage 4 chronic kidney disease, or unspecified chronic kidney disease; I50.32 Chronic diastolic (congestive) heart failure; I71.4 Abdominal aortic aneurysm, without rupture; Z16.12 Extended spectrum beta lactamase (ESBL) resistance; N18.9 Chronic kidney disease, unspecified; I25.10 Atherosclerotic heart disease of native coronary artery without angina pectoris; E78.5 Hyperlipidemia, unspecified; R07.9 Chest pain, unspecified
CPT/HCPCS: 36415; 71045-TC-FY; 71275-TC; 75635-TC; 78452-TC; 80053; 80061; 80162; 81003; 82550; 82570; 82962; 83036; 83690; 83735; 83880; 84100; 84300; 84443; 84484; 85025; 85379; 85610; 85730; 87086; 87186; 90670; 90686; 93005; 93010; 93017; 93306-TC; 93970-TC; 97116-GP; 97161-GP; 99285-25; A9502; C9803; G0008; G0378; J0131; J2785; U0003; U0005

== ENCOUNTER 2021-05-03 12:55 | Day surgery (SDC) | payer OTHER ==
[~2021-05-03 12:55] MED LIST: ERTAPENEM SODIUM 1 GM in SODIUM CHLORIDE 50 ML IVPB ONE
[2021-05-03] MEDS ORDERED: SODIUM CHLORIDE 50 ML IVPB ONE (13:14)
[2021-05-03] MEDS ORDERED: ERTAPENEM SODIUM 1 GM VIAL ONE (13:14)
[2021-05-03 16:30] VITALS: BP 133/79; PULSE 85; TEMP 98.3
== END 2021-05-03 14:15 | disposition home or self-care (01) ==
LOC: JINFUSION 12:55 → J7W 13:02 → JINFUSION 14:15
PROVIDERS: ATTEND Internal Medicine Infectious Disease
DX: N39.0 Urinary tract infection, site not specified (principal)
CPT/HCPCS: 96365

== ENCOUNTER 2021-05-04 12:00 | Day surgery (SDC) | payer OTHER ==
[2021-05-04] MEDS ORDERED: ERTAPENEM SODIUM 1 GM VIAL ONE (12:20)
[2021-05-04] MEDS ORDERED: SODIUM CHLORIDE 50 ML IVPB ONE (12:21)
[2021-05-04] MEDS ORDERED: ERTAPENEM SODIUM 1 GM in SODIUM CHLORIDE 50 ML IVPB ONE (12:30)
[2021-05-04 14:00] VITALS: BP 131/72; PULSE 78; TEMP 98.1
== END 2021-05-04 15:39 | disposition home or self-care (01) ==
LOC: JINFUSION 12:00 → J7W 12:01 → JINFUSION 15:39
PROVIDERS: ATTEND Internal Medicine Infectious Disease
DX: N39.0 Urinary tract infection, site not specified (principal)
CPT/HCPCS: 96365

== ENCOUNTER 2021-05-05 12:18 | Day surgery (SDC) | payer OTHER ==
[2021-05-05] MEDS ORDERED: ERTAPENEM SODIUM 1 GM in SODIUM CHLORIDE 50 ML IVPB ONE (12:45)
[2021-05-05] MEDS ORDERED: SODIUM CHLORIDE 50 ML IVPB ONE (13:06)
[2021-05-05] MEDS ORDERED: ERTAPENEM SODIUM 1 GM VIAL ONE (13:06)
[2021-05-05 14:17] VITALS: BP 123/66; PULSE 78; TEMP 98
== END 2021-05-05 15:30 | disposition home or self-care (01) ==
LOC: JINFUSION 12:18 → J7W 12:19 → JINFUSION 15:30
PROVIDERS: ATTEND Internal Medicine Infectious Disease
DX: N39.0 Urinary tract infection, site not specified (principal)
CPT/HCPCS: 96365

== ENCOUNTER 2021-05-06 12:47 | Day surgery (SDC) | payer OTHER ==
[2021-05-06] MEDS ORDERED: ERTAPENEM SODIUM 1 GM VIAL ONE (13:26)
[2021-05-06] MEDS ORDERED: SODIUM CHLORIDE 50 ML IVPB ONE (13:27)
[2021-05-06 17:23] VITALS: BP 124/67; PULSE 68; TEMP 98
== END 2021-05-06 17:23 | disposition home or self-care (01) ==
LOC: JINFUSION 12:47 → J7W 12:48 → JINFUSION 17:22
PROVIDERS: ATTEND Internal Medicine Infectious Disease
DX: N39.0 Urinary tract infection, site not specified (principal)
CPT/HCPCS: 96365

== ENCOUNTER 2021-05-07 13:17 | Day surgery (SDC) | payer OTHER ==
[2021-05-07] MEDS ORDERED: ERTAPENEM SODIUM 1 GM VIAL ONE (13:26)
[2021-05-07] MEDS ORDERED: SODIUM CHLORIDE 50 ML IVPB ONE (13:26)
[2021-05-07] MEDS ORDERED: ERTAPENEM SODIUM 1 GM in SODIUM CHLORIDE 50 ML IVPB ONE (14:00)
[2021-05-07 15:28] VITALS: BP 129/70; PULSE 81; TEMP 98
== END 2021-05-07 15:40 | disposition home or self-care (01) ==
LOC: JINFUSION 13:17 → J7W 13:17 → JINFUSION 15:40
PROVIDERS: ATTEND Internal Medicine Infectious Disease
DX: N39.0 Urinary tract infection, site not specified (principal)
CPT/HCPCS: 96365

== ENCOUNTER 2021-05-17 22:14 | Emergency (ER) | payer OTHER ==
[2021-05-17 22:34] VITALS: TEMP 98.2; BMI 46.0
[2021-05-17] MEDS ORDERED: ACETAMINOPHEN 1000 MG/100 ML VIAL IVPB ONE (23:02)
[2021-05-17] MEDS ORDERED: ACETAMINOPHEN INJECTION 100 ML IVPB ONE (23:08)
[2021-05-17 23:14] LABS: BASO % 0.7 % (0-2.0); EOS % 1.6 % (0-4.5); HEMOGLOBIN 13.9 GM/dL (10.7-15.3); LYMPH % 27.7 % (8-40); MCH 33.3 pg (25.7-33.7); MCHC 34.8 g/dl (32.0-36.0); MEAN CELL VOLUME 95.5 fl (80-96); MONO % 8.3 % (3.8-10.2); NEUT % 61.7 % (42.8-82.8); PLATELET COUNT 188 10^3/uL (134-434); RBC 4.18 M/mm3 (3.60-5.2); RDW 13.3 % (11.6-15.6); WHITE BLOOD COUNT 6.5 K/mm3 (4.0-10.0)
[2021-05-17 23:22] LABS: INR 2.25 (0.83-1.09); PROTHROMBIN TIME (PATIENT) 26.5 SEC (9.7-13.0)
[2021-05-17 23:25] LABS: ACTIVATED PTT 40.2 SECONDS (25.2-36.5)
[2021-05-17 23:30] LABS: CALCIUM 8.6 mg/dL (8.5-10.1)
[2021-05-17 23:31] LABS: ALBUMIN 3.2 g/dl (3.4-5.0); BLOOD UREA NITROGEN 35.5 mg/dL (7-18)
[2021-05-17 23:36] LABS: CREATININE 1.4 mg/dL (0.55-1.3)
[2021-05-17 23:37] LABS: BILIRUBIN,TOTAL 0.5 mg/dL (0.2-1); TOT PROT 7.4 g/dl (6.4-8.2)
[2021-05-18 02:14] VITALS: BP 155/89; PULSE 76
== END 2021-05-18 02:14 | disposition home or self-care (01) ==
LOC: JER 22:14
PROC: 3E0333Z Introduction of Anti-inflammatory into Peripheral Vein, Percutaneous Approach (ICD-10-PCS; principal; 2021-05-17)
DX: K64.4 Residual hemorrhoidal skin tags (principal)
CPT/HCPCS: 36415; 70450-TC; 80053; 82272; 85025; 85610; 85730; 86850; 86870; 86900; 86901; 86902; 99284-25; C9803; J0131; U0003; U0005

== ENCOUNTER 2021-08-11 22:06 | Inpatient (IN) | payer OTHER ==
[2021-08-11] MEDS ORDERED: ACETAMINOPHEN 1000 MG/100 ML BAG IVPB ONE (23:00)
[2021-08-11 23:51] LABS: BASO % 0.5 % (0-2.0); EOS % 1.5 % (0-4.5); HEMATOCRIT 38.5 % (32.4-45.2); HEMOGLOBIN 13.3 GM/dL (10.7-15.3); LYMPH % 23.1 % (8-40); MCH 33.2 pg (25.7-33.7); MCHC 34.6 g/dl (32.0-36.0); MEAN CELL VOLUME 95.7 fl (80-96); MEAN PLT VOLUME 7.6 fl (7.5-11.1); NEUT % 66.9 % (42.8-82.8); PLATELET COUNT 152 10^3/uL (134-434); RBC 4.02 M/mm3 (3.60-5.2); RDW 13.7 % (11.6-15.6); WHITE BLOOD COUNT 6.2 K/mm3 (4.0-10.0)
[2021-08-11 23:59] LABS: INR 1.07 (0.83-1.09); PROTHROMBIN TIME (PATIENT) 12.3 SEC (9.7-13.0)
[2021-08-12 00:02] LABS: ACTIVATED PTT 32.2 SECONDS (25.2-36.5)
[2021-08-12] MEDS ORDERED: ACETAMINOPHEN INJECTION 100 ML IVPB ONE (00:07)
[2021-08-12 00:12] LABS: ALBUMIN 3.3 g/dl (3.4-5.0); BLOOD UREA NITROGEN 32.4 mg/dL (7-18); CALCIUM 8.2 mg/dL (8.5-10.1); MAGNESIUM 2.4 mg/dL (1.8-2.4)
[2021-08-12 00:16] LABS: CREATININE 1.4 mg/dL (0.55-1.3)
[2021-08-12 00:18] LABS: BILIRUBIN,TOTAL 0.5 mg/dL (0.2-1); TOT PROT 6.9 g/dl (6.4-8.2)
[2021-08-12 01:09] LABS: EPI CELLS 12 /uL (0-25.1); HYALINE CASTS 3 /uL (0-3.1); URINE APPEARANCE CLEAR; URINE BACTERIA 23 /uL (0-1359); URINE BILIRUBIN NEGATIVE (NEGATIVE); URINE COLOR YELLOW; URINE GLUCOSE (UA) NEGATIVE (NEGATIVE); URINE KETONE NEGATIVE (NEGATIVE); URINE LEUK ESTERASE NEGATIVE (NEGATIVE); URINE NITRITE NEGATIVE (NEGATIVE); URINE PROTEIN 3+ (NEGATIVE); URINE RBC 10 /uL (0-23.9); URINE WBC 5 /uL (0-25.8)
[2021-08-12] MEDS ORDERED: ALBUTEROL SO4 0.083% IH SOL 2.5 MG/3 ML VIAL.NEB. NEB PRN (04:37)
[2021-08-12 07:22] LABS: BASO % 0.9 % (0-2.0); EOS % 1.9 % (0-4.5); HEMOGLOBIN 13.4 GM/dL (10.7-15.3); LYMPH % 28.6 % (8-40); MCH 32.9 pg (25.7-33.7); MCHC 34.3 g/dl (32.0-36.0); MEAN CELL VOLUME 95.8 fl (80-96); MEAN PLT VOLUME 7.5 fl (7.5-11.1); MONO % 6.6 % (3.8-10.2); PLATELET COUNT 151 10^3/uL (134-434); RBC 4.07 M/mm3 (3.60-5.2); RDW 13.5 % (11.6-15.6); WHITE BLOOD COUNT 6.7 K/mm3 (4.0-10.0)
[2021-08-12 07:32] LABS: INR 1.11 (0.83-1.09); PROTHROMBIN TIME (PATIENT) 12.8 SEC (9.7-13.0)
[2021-08-12 07:34] LABS: CALCIUM 7.9 mg/dL (8.5-10.1)
[2021-08-12 07:35] LABS: ALBUMIN 3.2 g/dl (3.4-5.0); BLOOD UREA NITROGEN 28.9 mg/dL (7-18); MAGNESIUM 2.3 mg/dL (1.8-2.4)
[2021-08-12 07:38] LABS: CREATININE 1.2 mg/dL (0.55-1.3); PHOSPHOROUS 3.6 mg/dL (2.5-4.9); TOT PROT 6.7 g/dl (6.4-8.2)
[2021-08-12 07:39] LABS: BILIRUBIN,TOTAL 0.7 mg/dL (0.2-1)
[2021-08-12] MEDS ORDERED: POTASSIUM CHLORIDE TABS 20 MEQ TABLET.ER (FP) PO ONE ×2 (08:24→22:00)
[2021-08-12] MEDS ORDERED: ACETAMINOPHEN 325 MG TABLET (FP) PO ONE (11:00)
[2021-08-12] MEDS ORDERED: ALBUTEROL SO4 HFA INHALER IH PRN (13:28)
[2021-08-12] MEDS: GABAPENTIN 300 MG CAPSULE PO SCH ×2 (14:06→21:09)
[2021-08-12] MEDS: LISINOPRIL 10 MG TABLET PO SCH (14:07)
[2021-08-12] MEDS: FUROSEMIDE 40 MG TABLET (FP) PO SCH (14:07)
[2021-08-12 16:52] VITALS: BMI 39.6
[2021-08-12] MEDS ORDERED: WARFARIN NA 2 MG TABLET PO SCH (18:00)
[2021-08-13] MEDS: GABAPENTIN 300 MG CAPSULE PO SCH ×3 (08:05→22:52)
[2021-08-13 08:42] LABS: HEMATOCRIT 40.5 % (32.4-45.2); HEMOGLOBIN 13.6 GM/dL (10.7-15.3); MCH 32.5 pg (25.7-33.7); MCHC 33.5 g/dl (32.0-36.0); PLATELET COUNT 164 10^3/uL (134-434); RBC 4.17 M/mm3 (3.60-5.2); RDW 13.5 % (11.6-15.6); WHITE BLOOD COUNT 7.2 K/mm3 (4.0-10.0)
[2021-08-13 09:00] LABS: BLOOD UREA NITROGEN 24.3 mg/dL (7-18); CALCIUM 8.5 mg/dL (8.5-10.1); MAGNESIUM 2.2 mg/dL (1.8-2.4)
[2021-08-13 09:03] LABS: CREATININE 1.2 mg/dL (0.55-1.3)
[2021-08-13 09:04] LABS: PHOSPHOROUS 3.1 mg/dL (2.5-4.9)
[2021-08-13] MEDS: POLYETHYLENE GLYCOL (HEALTHYLAX) 3350 17 GM PACKET PO SCH (10:39)
[2021-08-13] MEDS: LISINOPRIL 10 MG TABLET PO SCH (10:39)
[2021-08-13] MEDS: SENNOSIDES 8.6MG TABLET (FP) PO SCH ×2 (10:39→22:52)
[2021-08-13] MEDS: FUROSEMIDE 40 MG TABLET (FP) PO SCH (10:39)
[2021-08-13] MEDS: METOPROLOL TARTRATE 50 MG TABLET (FP) PO SCH (10:39)
[2021-08-13] MEDS: APIXABAN 5 MG TABLET PO SCH (22:52)
[2021-08-14] MEDS: GABAPENTIN 300 MG CAPSULE PO SCH ×3 (06:01→21:16)
[2021-08-14 08:05] LABS: BASO % 0.5 % (0-2.0); EOS % 1.7 % (0-4.5); HEMATOCRIT 41.6 % (32.4-45.2); HEMOGLOBIN 14.4 GM/dL (10.7-15.3); LYMPH % 26.5 % (8-40); MCHC 34.6 g/dl (32.0-36.0); MEAN CELL VOLUME 95.3 fl (80-96); MEAN PLT VOLUME 7.9 fl (7.5-11.1); MONO % 7.2 % (3.8-10.2); NEUT % 64.1 % (42.8-82.8); PLATELET COUNT 171 10^3/uL (134-434); RBC 4.36 M/mm3 (3.60-5.2); RDW 13.7 % (11.6-15.6); WHITE BLOOD COUNT 7.6 K/mm3 (4.0-10.0)
[2021-08-14 08:18] LABS: ALBUMIN 3.4 g/dl (3.4-5.0)
[2021-08-14 08:19] LABS: BLOOD UREA NITROGEN 27.2 mg/dL (7-18); CALCIUM 8.2 mg/dL (8.5-10.1); MAGNESIUM 2.2 mg/dL (1.8-2.4)
[2021-08-14 08:21] LABS: CREATININE 1.2 mg/dL (0.55-1.3); PHOSPHOROUS 3.4 mg/dL (2.5-4.9)
[2021-08-14 08:23] LABS: TOT PROT 7.3 g/dl (6.4-8.2)
[2021-08-14] MEDS: APIXABAN 5 MG TABLET PO SCH ×2 (09:28→21:16)
[2021-08-14] MEDS: POLYETHYLENE GLYCOL (HEALTHYLAX) 3350 17 GM PACKET PO SCH ×2 (09:28→09:29)
[2021-08-14] MEDS: LISINOPRIL 10 MG TABLET PO SCH (09:28)
[2021-08-14] MEDS: METOPROLOL TARTRATE 50 MG TABLET (FP) PO SCH (09:28)
[2021-08-14] MEDS: FUROSEMIDE 40 MG TABLET (FP) PO SCH (09:28)
[2021-08-14] MEDS: SENNOSIDES 8.6MG TABLET (FP) PO SCH ×2 (09:29→21:16)
[2021-08-14] MEDS ORDERED: POTASSIUM CHLORIDE ORAL LIQUID 20 MEQ/15 ML PO ONE (13:45)
[2021-08-15] MEDS: GABAPENTIN 300 MG CAPSULE PO SCH ×3 (05:19→22:19)
[2021-08-15 09:27] LABS: HEMATOCRIT 41.8 % (32.4-45.2); MCH 32.5 pg (25.7-33.7); MCHC 33.5 g/dl (32.0-36.0); MEAN CELL VOLUME 96.9 fl (80-96); MEAN PLT VOLUME 8.4 fl (7.5-11.1); PLATELET COUNT 180 10^3/uL (134-434); RBC 4.32 M/mm3 (3.60-5.2); WHITE BLOOD COUNT 6.9 K/mm3 (4.0-10.0)
[2021-08-15 09:50] LABS: BLOOD UREA NITROGEN 27.2 mg/dL (7-18)
[2021-08-15 09:51] LABS: CALCIUM 7.9 mg/dL (8.5-10.1)
[2021-08-15] MEDS: APIXABAN 5 MG TABLET PO SCH ×2 (09:51→22:19)
[2021-08-15] MEDS: LISINOPRIL 10 MG TABLET PO SCH (09:51)
[2021-08-15] MEDS: SENNOSIDES 8.6MG TABLET (FP) PO SCH ×2 (09:51→22:19)
[2021-08-15] MEDS: METOPROLOL TARTRATE 50 MG TABLET (FP) PO SCH ×2 (09:51→22:19)
[2021-08-15] MEDS: FUROSEMIDE 40 MG TABLET (FP) PO SCH (09:51)
[2021-08-15] MEDS: POLYETHYLENE GLYCOL (HEALTHYLAX) 3350 17 GM PACKET PO SCH ×2 (09:51→09:52)
[2021-08-15 09:56] LABS: MAGNESIUM 2.3 mg/dL (1.8-2.4)
[2021-08-15 09:59] LABS: CREATININE 1.2 mg/dL (0.55-1.3)
[2021-08-16] MEDS: GABAPENTIN 300 MG CAPSULE PO SCH ×3 (05:51→21:01)
[2021-08-16 09:58] LABS: HEMATOCRIT 39.6 % (32.4-45.2); HEMOGLOBIN 13.2 GM/dL (10.7-15.3); MCH 32.3 pg (25.7-33.7); MCHC 33.3 g/dl (32.0-36.0); MEAN PLT VOLUME 8.1 fl (7.5-11.1); PLATELET COUNT 188 10^3/uL (134-434); RBC 4.09 M/mm3 (3.60-5.2); WHITE BLOOD COUNT 6.6 K/mm3 (4.0-10.0)
[2021-08-16 10:20] LABS: CALCIUM 7.9 mg/dL (8.5-10.1)
[2021-08-16 10:21] LABS: BLOOD UREA NITROGEN 24.2 mg/dL (7-18); MAGNESIUM 2.2 mg/dL (1.8-2.4)
[2021-08-16 10:23] LABS: PHOSPHOROUS 3.6 mg/dL (2.5-4.9)
[2021-08-16 10:24] LABS: CREATININE 1.2 mg/dL (0.55-1.3)
[2021-08-16] MEDS: LISINOPRIL 10 MG TABLET PO SCH (10:31)
[2021-08-16] MEDS: APIXABAN 5 MG TABLET PO SCH ×2 (10:31→21:01)
[2021-08-16] MEDS: METOPROLOL TARTRATE 50 MG TABLET (FP) PO SCH ×3 (10:31→21:01)
[2021-08-16] MEDS: POLYETHYLENE GLYCOL (HEALTHYLAX) 3350 17 GM PACKET PO SCH (10:31)
[2021-08-16] MEDS: FUROSEMIDE 40 MG TABLET (FP) PO SCH (10:31)
[2021-08-16] MEDS: SENNOSIDES 8.6MG TABLET (FP) PO SCH ×2 (10:31→21:02)
[2021-08-16] MEDS ORDERED: METOPROLOL TARTRATE 50 MG TABLET (FP) PO SCH (10:45)
[2021-08-16] MEDS ORDERED: POTASSIUM CHLORIDE TABS 20 MEQ TABLET.ER (FP) PO ONE (16:27)
[2021-08-16] MEDS ORDERED: ACETAMINOPHEN 325 MG TABLET (FP) PO ONE (20:29)
[2021-08-16] MEDS ORDERED: MELATONIN 5 MG TABLETS PO SCH (22:00)
[2021-08-17] MEDS: GABAPENTIN 300 MG CAPSULE PO SCH ×2 (05:57→14:41)
[2021-08-17 09:44] LABS: HEMOGLOBIN 14.4 GM/dL (10.7-15.3); MCH 33.2 pg (25.7-33.7); MCHC 34.4 g/dl (32.0-36.0); MEAN CELL VOLUME 96.5 fl (80-96); MEAN PLT VOLUME 7.9 fl (7.5-11.1); PLATELET COUNT 193 10^3/uL (134-434); RBC 4.35 M/mm3 (3.60-5.2); RDW 14.1 % (11.6-15.6); WHITE BLOOD COUNT 6.7 K/mm3 (4.0-10.0)
[2021-08-17] MEDS: POLYETHYLENE GLYCOL (HEALTHYLAX) 3350 17 GM PACKET PO SCH (09:55)
[2021-08-17] MEDS: METOPROLOL TARTRATE 50 MG TABLET (FP) PO SCH (09:56)
[2021-08-17] MEDS: FUROSEMIDE 40 MG TABLET (FP) PO SCH (09:56)
[2021-08-17] MEDS: APIXABAN 5 MG TABLET PO SCH (09:56)
[2021-08-17] MEDS: SENNOSIDES 8.6MG TABLET (FP) PO SCH (09:56)
[2021-08-17] MEDS: LISINOPRIL 10 MG TABLET PO SCH (09:56)
[2021-08-17 10:51] LABS: BLOOD UREA NITROGEN 27.4 mg/dL (7-18); CALCIUM 8.4 mg/dL (8.5-10.1)
[2021-08-17 10:52] LABS: MAGNESIUM 2.3 mg/dL (1.8-2.4)
[2021-08-17 10:53] LABS: CREATININE 1.3 mg/dL (0.55-1.3)
[2021-08-17 14:34] VITALS: BP 141/79; PULSE 89; TEMP 98.3
== END 2021-08-17 20:00 | disposition home or self-care (01) | DRG 880 ==
LOC: JER 22:06 → JERBED 08-12 02:34 → J7W 08-12 06:45
PROVIDERS: ADMIT Internal Medicine; ATTEND Internal Medicine
DX: F05 Delirium due to known physiological condition (principal); I13.0 Hypertensive heart and chronic kidney disease with heart failure and stage 1 through stage 4 chronic kidney disease, or unspecified chronic kidney disease; I50.32 Chronic diastolic (congestive) heart failure; N39.0 Urinary tract infection, site not specified; N17.9 Acute kidney failure, unspecified; R44.3 Hallucinations, unspecified; R41.82 Altered mental status, unspecified; T46.0X5A Adverse effect of cardiac-stimulant glycosides and drugs of similar action, initial encounter; N18.9 Chronic kidney disease, unspecified; I25.10 Atherosclerotic heart disease of native coronary artery without angina pectoris; E78.5 Hyperlipidemia, unspecified; I48.91 Unspecified atrial fibrillation; J44.9 Chronic obstructive pulmonary disease, unspecified; K21.9 Gastro-esophageal reflux disease without esophagitis; M25.562 Pain in left knee; R73.03 Prediabetes; M25.561 Pain in right knee; E66.9 Obesity, unspecified; Z68.38 Body mass index [BMI] 38.0-38.9, adult; F41.8 Other specified anxiety disorders; I77.819 Aortic ectasia, unspecified site; Z96.653 Presence of artificial knee joint, bilateral
CPT/HCPCS: 36415; 70450-TC; 70551-TC; 71045-TC-FY; 72125-TC; 80048; 80053; 80061; 80162; 81003; 82140; 82550; 82607; 82746; 83090; 83605; 83735; 84100; 84443; 84484; 85025; 85027; 85610; 85730; 86780; 86850; 86870; 86900; 86901; 86902; 87040; 93005; 93010; 93880-TC; 94761; 97116-GP; 97161-GP; 99285-25; C9803; U0003; U0005

== ENCOUNTER 2021-09-08 04:41 | Observation (INO) | payer OTHER ==
[2021-09-08 08:10] VITALS: BMI 37.8
[2021-09-08 08:16] LABS: ALBUMIN 3.4 g/dl (3.4-5.0); CALCIUM 8.6 mg/dL (8.5-10.1)
[2021-09-08 08:17] LABS: BLOOD UREA NITROGEN 36.2 mg/dL (7-18)
[2021-09-08 08:20] LABS: CREATININE 1.3 mg/dL (0.55-1.3)
[2021-09-08 08:21] LABS: BILIRUBIN,TOTAL 0.4 mg/dL (0.2-1); TOT PROT 7.2 g/dl (6.4-8.2)
[2021-09-08 08:25] LABS: BASO % 0.5 % (0-2.0); EOS % 1.7 % (0-4.5); HEMATOCRIT 42.1 % (32.4-45.2); HEMOGLOBIN 14.4 GM/dL (10.7-15.3); LYMPH % 25.2 % (8-40); MCH 32.5 pg (25.7-33.7); MCHC 34.3 g/dl (32.0-36.0); MEAN CELL VOLUME 94.9 fl (80-96); MEAN PLT VOLUME 8.1 fl (7.5-11.1); MONO % 6.7 % (3.8-10.2); NEUT % 65.9 % (42.8-82.8); PLATELET COUNT 169 10^3/uL (134-434); RBC 4.44 M/mm3 (3.60-5.2); RDW 13.4 % (11.6-15.6); WHITE BLOOD COUNT 6.4 K/mm3 (4.0-10.0)
[2021-09-08] MEDS ORDERED: ASPIRIN 81 MG CHEWABLE TABLETS PO ONE (08:48)
[2021-09-08] MEDS ORDERED: ASPIRIN 81 MG CHEWABLE TABLETS ONE (09:13)
[2021-09-08] MEDS ORDERED: ALBUTEROL SO4 HFA INHALER IH PRN (09:51)
[2021-09-08] MEDS: APIXABAN 5 MG TABLET PO SCH ×2 (12:59→21:26)
[2021-09-08] MEDS: DONEPEZIL HCL 5 MG TABLET (FP) PO SCH ×2 (12:59→21:26)
[2021-09-08] MEDS: LISINOPRIL 10 MG TABLET PO SCH (12:59)
[2021-09-08] MEDS: FUROSEMIDE 40 MG TABLET (FP) PO SCH (12:59)
[2021-09-08] MEDS: POTASSIUM CHLORIDE TABS 20 MEQ TABLET.ER (FP) PO SCH (12:59)
[2021-09-08] MEDS: GABAPENTIN 300 MG CAPSULE PO SCH ×2 (13:06→21:26)
[2021-09-09] MEDS: GABAPENTIN 300 MG CAPSULE PO SCH ×3 (05:34→21:10)
[2021-09-09 07:03] LABS: BASO % 0.6 % (0-2.0); HEMATOCRIT 46.1 % (32.4-45.2); HEMOGLOBIN 15.2 GM/dL (10.7-15.3); LYMPH % 35.2 % (8-40); MCH 31.8 pg (25.7-33.7); MEAN CELL VOLUME 96.6 fl (80-96); MONO % 6.6 % (3.8-10.2); NEUT % 55.6 % (42.8-82.8); PLATELET COUNT 178 10^3/uL (134-434); RBC 4.78 M/mm3 (3.60-5.2); RDW 13.7 % (11.6-15.6); WHITE BLOOD COUNT 6.2 K/mm3 (4.0-10.0)
[2021-09-09 07:36] LABS: ALBUMIN 3.5 g/dl (3.4-5.0); CALCIUM 8.9 mg/dL (8.5-10.1); MAGNESIUM 2.6 mg/dL (1.8-2.4)
[2021-09-09 07:37] LABS: BLOOD UREA NITROGEN 37.8 mg/dL (7-18)
[2021-09-09 07:39] LABS: CREATININE 1.4 mg/dL (0.55-1.3); PHOSPHOROUS 4.3 mg/dL (2.5-4.9)
[2021-09-09 07:41] LABS: BILIRUBIN,TOTAL 0.7 mg/dL (0.2-1); TOT PROT 7.5 g/dl (6.4-8.2)
[2021-09-09] MEDS ORDERED: ACETAMINOPHEN 325 MG TABLET (FP) PO PRN (07:55)
[2021-09-09] MEDS: FUROSEMIDE 40 MG TABLET (FP) PO SCH (09:03)
[2021-09-09] MEDS: POTASSIUM CHLORIDE TABS 20 MEQ TABLET.ER (FP) PO SCH (09:03)
[2021-09-09] MEDS: APIXABAN 5 MG TABLET PO SCH ×2 (09:03→21:10)
[2021-09-09] MEDS: DONEPEZIL HCL 5 MG TABLET (FP) PO SCH ×2 (09:03→21:10)
[2021-09-09] MEDS: LISINOPRIL 10 MG TABLET PO SCH (09:03)
[2021-09-09 11:04] LABS: EPI CELLS 35 /uL (0-25.1); HYALINE CASTS 0 /uL (0-3.1); URINE APPEARANCE CLEAR; URINE BACTERIA 380 /uL (0-1359); URINE BILIRUBIN NEGATIVE (NEGATIVE); URINE COLOR YELLOW; URINE GLUCOSE (UA) NEGATIVE (NEGATIVE); URINE KETONE NEGATIVE (NEGATIVE); URINE LEUK ESTERASE TRACE (NEGATIVE); URINE NITRITE NEGATIVE (NEGATIVE); URINE PROTEIN 2+ (NEGATIVE); URINE RBC 8 /uL (0-23.9); URINE WBC 32 /uL (0-25.8)
[2021-09-09] MEDS: ERTAPENEM SODIUM 1 GM in SODIUM CHLORIDE 50 ML IVPB SCH ×2 (12:19→17:35)
[2021-09-10] MEDS: GABAPENTIN 300 MG CAPSULE PO SCH ×3 (05:23→21:03)
[2021-09-10 07:01] LABS: BASO % 0.4 % (0-2.0); EOS % 2.7 % (0-4.5); HEMATOCRIT 42.6 % (32.4-45.2); HEMOGLOBIN 14.5 GM/dL (10.7-15.3); LYMPH % 32.8 % (8-40); MCH 32.5 pg (25.7-33.7); MCHC 34.1 g/dl (32.0-36.0); MEAN CELL VOLUME 95.5 fl (80-96); MEAN PLT VOLUME 7.9 fl (7.5-11.1); MONO % 6.8 % (3.8-10.2); NEUT % 57.3 % (42.8-82.8); PLATELET COUNT 152 10^3/uL (134-434); RBC 4.46 M/mm3 (3.60-5.2); RDW 13.4 % (11.6-15.6); WHITE BLOOD COUNT 6.1 K/mm3 (4.0-10.0)
[2021-09-10 07:19] LABS: CALCIUM 8.3 mg/dL (8.5-10.1)
[2021-09-10 07:20] LABS: BLOOD UREA NITROGEN 43.6 mg/dL (7-18)
[2021-09-10 07:25] LABS: CREATININE 1.6 mg/dL (0.55-1.3)
[2021-09-10] MEDS: APIXABAN 5 MG TABLET PO SCH ×2 (09:29→21:03)
[2021-09-10] MEDS: DONEPEZIL HCL 5 MG TABLET (FP) PO SCH ×2 (09:29→21:03)
[2021-09-10] MEDS: LISINOPRIL 10 MG TABLET PO SCH (09:29)
[2021-09-10] MEDS: POTASSIUM CHLORIDE TABS 20 MEQ TABLET.ER (FP) PO SCH (09:29)
[2021-09-10] MEDS: ERTAPENEM SODIUM 1 GM in SODIUM CHLORIDE 50 ML IVPB SCH (09:30)
[2021-09-10] MEDS ORDERED: BISACODYL 5 MG TABLET.DR (FP) PO ONE (18:56)
[2021-09-10] MEDS ORDERED: SODIUM CHLORIDE 0.45% 1,000 ML IV SCH (19:00)
[2021-09-10] MEDS: DOCUSATE SODIUM 100 MG CAPSULE (FP) PO SCH (21:10)
[2021-09-11] MEDS: GABAPENTIN 300 MG CAPSULE PO SCH ×3 (06:43→21:50)
[2021-09-11 08:49] LABS: BASO % 0.5 % (0-2.0); EOS % 1.8 % (0-4.5); HEMOGLOBIN 14.6 GM/dL (10.7-15.3); LYMPH % 27.2 % (8-40); MCH 31.9 pg (25.7-33.7); MCHC 33.1 g/dl (32.0-36.0); MEAN CELL VOLUME 96.3 fl (80-96); MEAN PLT VOLUME 8.1 fl (7.5-11.1); MONO % 6.5 % (3.8-10.2); PLATELET COUNT 170 10^3/uL (134-434); RBC 4.57 M/mm3 (3.60-5.2); RDW 13.5 % (11.6-15.6); WHITE BLOOD COUNT 7.3 K/mm3 (4.0-10.0)
[2021-09-11 09:13] LABS: BLOOD UREA NITROGEN 39.8 mg/dL (7-18); CALCIUM 8.7 mg/dL (8.5-10.1)
[2021-09-11 09:16] LABS: CREATININE 1.4 mg/dL (0.55-1.3)
[2021-09-11] MEDS: POTASSIUM CHLORIDE TABS 20 MEQ TABLET.ER (FP) PO SCH (09:38)
[2021-09-11] MEDS: APIXABAN 5 MG TABLET PO SCH ×2 (09:39→21:49)
[2021-09-11] MEDS: DONEPEZIL HCL 5 MG TABLET (FP) PO SCH ×2 (09:39→21:50)
[2021-09-11] MEDS: LISINOPRIL 10 MG TABLET PO SCH (09:39)
[2021-09-11] MEDS: DOCUSATE SODIUM 100 MG CAPSULE (FP) PO SCH (21:50)
[2021-09-12] MEDS: GABAPENTIN 300 MG CAPSULE PO SCH ×2 (06:31→13:19)
[2021-09-12] MEDS: LIDOCAINE 5% TOPICAL PATCH TP SCH ×2 (06:31→09:29)
[2021-09-12 07:15] LABS: BASO % 0.5 % (0-2.0); EOS % 2.3 % (0-4.5); HEMATOCRIT 40.1 % (32.4-45.2); HEMOGLOBIN 13.6 GM/dL (10.7-15.3); LYMPH % 29.1 % (8-40); MCH 32.7 pg (25.7-33.7); MEAN CELL VOLUME 96.2 fl (80-96); MEAN PLT VOLUME 7.9 fl (7.5-11.1); MONO % 6.9 % (3.8-10.2); NEUT % 61.2 % (42.8-82.8); PLATELET COUNT 157 10^3/uL (134-434); RBC 4.17 M/mm3 (3.60-5.2); RDW 13.1 % (11.6-15.6); WHITE BLOOD COUNT 6.2 K/mm3 (4.0-10.0)
[2021-09-12 07:45] LABS: BLOOD UREA NITROGEN 30.3 mg/dL (7-18); CALCIUM 8.1 mg/dL (8.5-10.1)
[2021-09-12 07:49] LABS: CREATININE 1.3 mg/dL (0.55-1.3)
[2021-09-12] MEDS: DONEPEZIL HCL 5 MG TABLET (FP) PO SCH (09:29)
[2021-09-12] MEDS: POTASSIUM CHLORIDE TABS 20 MEQ TABLET.ER (FP) PO SCH (09:29)
[2021-09-12] MEDS: APIXABAN 5 MG TABLET PO SCH (09:29)
[2021-09-12 09:31] VITALS: BP 149/94; PULSE 88; TEMP 97.8
[2021-09-12] MEDS ORDERED: LIDOCAINE PATCH REMOVAL MC SCH (22:00)
== END 2021-09-12 17:37 | disposition home or self-care (01) ==
LOC: JER 04:41 → JERBED 08:52 → J4W 11:40
PROVIDERS: ADMIT Internal Medicine; ATTEND Internal Medicine
PROC: 3E0337Z Introduction of Electrolytic and Water Balance Substance into Peripheral Vein, Percutaneous Approach (ICD-10-PCS; principal; 2021-09-08)
DX: I13.0 Hypertensive heart and chronic kidney disease with heart failure and stage 1 through stage 4 chronic kidney disease, or unspecified chronic kidney disease (principal); N18.9 Chronic kidney disease, unspecified; E78.5 Hyperlipidemia, unspecified; I48.91 Unspecified atrial fibrillation; Z79.01 Long term (current) use of anticoagulants; J44.9 Chronic obstructive pulmonary disease, unspecified; E66.8 Other obesity; Z68.38 Body mass index [BMI] 38.0-38.9, adult; Z91.018 Allergy to other foods; F41.8 Other specified anxiety disorders
CPT/HCPCS: 36415; 70450-TC; 71045-TC-FY; 80048; 80053; 81003; 82962; 83735; 84100; 84484; 85025; 85379; 87086; 93005; 93010; 96360; 99285-25; C9803-CS; G0378; U0003; U0005

== ENCOUNTER 2021-10-09 22:58 | Inpatient (IN) | payer OTHER ==
[2021-10-10 00:40] LABS: BASO % 0.7 % (0-2.0); EOS % 2.1 % (0-4.5); HEMATOCRIT 39.1 % (32.4-45.2); HEMOGLOBIN 13.3 GM/dL (10.7-15.3); MCH 31.9 pg (25.7-33.7); MEAN CELL VOLUME 93.8 fl (80-96); MEAN PLT VOLUME 7.6 fl (7.5-11.1); MONO % 7.4 % (3.8-10.2); NEUT % 63.8 % (42.8-82.8); PLATELET COUNT 166 10^3/uL (134-434); RBC 4.17 M/mm3 (3.60-5.2); RDW 13.8 % (11.6-15.6); WHITE BLOOD COUNT 6.2 K/mm3 (4.0-10.0)
[2021-10-10 00:57] LABS: CALCIUM 8.2 mg/dL (8.5-10.1)
[2021-10-10 00:58] LABS: BLOOD UREA NITROGEN 28.9 mg/dL (7-18)
[2021-10-10 01:01] LABS: CREATININE 1.4 mg/dL (0.55-1.3)
[2021-10-10 01:02] LABS: BILIRUBIN,TOTAL 0.6 mg/dL (0.2-1); TOT PROT 6.7 g/dl (6.4-8.2)
[2021-10-10 01:06] LABS: N-TERMINAL BNP 5809.2 pg/ml (5-450)
[2021-10-10] MEDS ORDERED: FUROSEMIDE 40 MG/4 ML INJECTABLE VIAL IVPUSH ONE (01:20)
[2021-10-10] MEDS ORDERED: FUROSEMIDE 40 MG/4 ML INJECTABLE VIAL ONE ×2 (01:23→09:00)
[2021-10-10] MEDS ORDERED: ACETAMINOPHEN 325 MG TABLET (FP) PO PRN ×2 (03:44→17:15)
[2021-10-10] MEDS ORDERED: ALBUTEROL SO4 HFA INHALER IH PRN ×2 (04:27→17:15)
[2021-10-10] MEDS ORDERED: ACETAMINOPHEN 325 MG TABLET (FP) ONE (04:28)
[2021-10-10] MEDS ORDERED: TIZANIDINE HCL 2 MG TABLET PO ONE (05:25)
[2021-10-10 05:51] LABS: URINE APPEARANCE CLEAR; URINE BILIRUBIN NEGATIVE (NEGATIVE); URINE COLOR YELLOW; URINE GLUCOSE (UA) NEGATIVE (NEGATIVE); URINE KETONE NEGATIVE (NEGATIVE); URINE LEUK ESTERASE NEGATIVE (NEGATIVE); URINE NITRITE NEGATIVE (NEGATIVE); URINE PROTEIN NEGATIVE (NEGATIVE); URINE UROBILINOGEN 0.2 mg/dL (0.2-1.0)
[2021-10-10] MEDS ORDERED: GABAPENTIN 300 MG CAPSULE ONE ×2 (05:55→08:59)
[2021-10-10] MEDS: GABAPENTIN 300 MG CAPSULE PO SCH ×3 (06:11→21:27)
[2021-10-10 06:20] LABS: CALCIUM 8.2 mg/dL (8.5-10.1)
[2021-10-10 06:21] LABS: ALBUMIN 3.2 g/dl (3.4-5.0)
[2021-10-10 06:22] LABS: BLOOD UREA NITROGEN 25.9 mg/dL (7-18)
[2021-10-10 06:26] LABS: BILIRUBIN,TOTAL 0.7 mg/dL (0.2-1); CREATININE 1.2 mg/dL (0.55-1.3)
[2021-10-10 06:27] LABS: TOT PROT 6.9 g/dl (6.4-8.2)
[2021-10-10 06:54] LABS: BASO % 0.1 % (0-2.0); EOS % 2.5 % (0-4.5); HEMOGLOBIN 13.5 GM/dL (10.7-15.3); LYMPH % 25.5 % (8-40); MCH 31.3 pg (25.7-33.7); MCHC 33.7 g/dl (32.0-36.0); MEAN CELL VOLUME 92.9 fl (80-96); MEAN PLT VOLUME 8.4 fl (7.5-11.1); MONO % 7.7 % (3.8-10.2); NEUT % 64.2 % (42.8-82.8); PLATELET COUNT 165 10^3/uL (134-434); RDW 13.3 % (11.6-15.6); WHITE BLOOD COUNT 5.3 K/mm3 (4.0-10.0)
[2021-10-10] MEDS ORDERED: APIXABAN 5 MG TABLET ONE (08:58)
[2021-10-10] MEDS ORDERED: POTASSIUM CHLORIDE TABS 20 MEQ TABLET.ER (FP) PO ONE (08:58)
[2021-10-10] MEDS ORDERED: POLYETHYLENE GLYCOL (HEALTHYLAX) 3350 17 GM PACKET ONE (08:58)
[2021-10-10] MEDS ORDERED: LISINOPRIL 10 MG TABLET ONE (08:59)
[2021-10-10] MEDS ORDERED: LISINOPRIL 10 MG TABLET PO SCH (10:00)
[2021-10-10] MEDS ORDERED: DONEPEZIL HCL 10 MG TABLET (FP) PO SCH (10:00)
[2021-10-10] MEDS ORDERED: FUROSEMIDE 40 MG/4 ML INJECTABLE VIAL IVPUSH SCH (10:00)
[2021-10-10] MEDS ORDERED: POLYETHYLENE GLYCOL (HEALTHYLAX) 3350 17 GM PACKET PO SCH (10:00)
[2021-10-10] MEDS ORDERED: APIXABAN 5 MG TABLET PO SCH (10:00)
[2021-10-10] MEDS ORDERED: POTASSIUM CHLORIDE TABS 20 MEQ TABLET.ER (FP) PO SCH (10:00)
[2021-10-10] MEDS ORDERED: NYSTATIN 100,000 UNIT/GM TOPICAL CREAM 15 GM TUBE TP SCH (10:00)
[2021-10-10] MEDS: FUROSEMIDE 40 MG/4 ML INJECTABLE VIAL IVPUSH SCH ×2 (10:45→14:36)
[2021-10-10] MEDS ORDERED: POTASSIUM CHLORIDE ORAL LIQUID 20 MEQ/15 ML PO SCH ×2 (10:45→22:00)
[2021-10-10] MEDS ORDERED: MAGNESIUM 1GM/D5W - 1 GM/100 ML IVPB IVPB ONE (10:49)
[2021-10-10] MEDS ORDERED: MAGNESIUM SULF 50% (8.12 MEQ/2 ML-1 GM VIAL) IVPB ONE (11:30)
[2021-10-10] MEDS ORDERED: ACETAMINOPHEN 1000 MG/100 ML BAG IVPB ONE (11:30)
[2021-10-10] MEDS: APIXABAN 5 MG TABLET PO SCH (21:27)
[2021-10-10] MEDS: NYSTATIN 100,000 UNIT/GM TOPICAL CREAM 15 GM TUBE TP SCH (21:27)
[2021-10-11] MEDS: GABAPENTIN 300 MG CAPSULE PO SCH ×3 (08:11→21:42)
[2021-10-11] MEDS: FUROSEMIDE 40 MG/4 ML INJECTABLE VIAL IVPUSH SCH ×2 (08:11→14:45)
[2021-10-11 08:27] LABS: HEMATOCRIT 42.3 % (32.4-45.2); MCH 31.1 pg (25.7-33.7); MCHC 33.1 g/dl (32.0-36.0); PLATELET COUNT 172 10^3/uL (134-434); RDW 13.4 % (11.6-15.6); WHITE BLOOD COUNT 6.3 K/mm3 (4.0-10.0)
[2021-10-11 08:48] LABS: BLOOD UREA NITROGEN 30.4 mg/dL (7-18); CALCIUM 8.1 mg/dL (8.5-10.1); MAGNESIUM 2.4 mg/dL (1.8-2.4)
[2021-10-11 08:52] LABS: CREATININE 1.3 mg/dL (0.55-1.3)
[2021-10-11] MEDS: APIXABAN 5 MG TABLET PO SCH ×2 (09:36→21:43)
[2021-10-11] MEDS: POTASSIUM CHLORIDE TABS 20 MEQ TABLET.ER (FP) PO SCH (09:36)
[2021-10-11] MEDS: LISINOPRIL 10 MG TABLET PO SCH (09:36)
[2021-10-11] MEDS ORDERED: POLYETHYLENE GLYCOL (HEALTHYLAX) 3350 17 GM PACKET PO SCH (10:00)
[2021-10-11] MEDS: NYSTATIN 100,000 UNIT/GM TOPICAL CREAM 15 GM TUBE TP SCH ×2 (10:25→21:43)
[2021-10-11 14:20] VITALS: BMI 36.2
[2021-10-11] MEDS: POLYETHYLENE GLYCOL (HEALTHYLAX) 3350 17 GM PACKET PO SCH (21:43)
[2021-10-11] MEDS: DONEPEZIL HCL 10 MG TABLET (FP) PO SCH (21:45)
[2021-10-12] MEDS: FUROSEMIDE 40 MG/4 ML INJECTABLE VIAL IVPUSH SCH (06:24)
[2021-10-12] MEDS: GABAPENTIN 300 MG CAPSULE PO SCH ×3 (06:24→21:36)
[2021-10-12 08:18] LABS: HEMATOCRIT 44.5 % (32.4-45.2); HEMOGLOBIN 14.8 GM/dL (10.7-15.3); MCH 31.4 pg (25.7-33.7); MCHC 33.3 g/dl (32.0-36.0); MEAN CELL VOLUME 94.2 fl (80-96); MEAN PLT VOLUME 7.9 fl (7.5-11.1); PLATELET COUNT 193 10^3/uL (134-434); RBC 4.72 M/mm3 (3.60-5.2); RDW 13.2 % (11.6-15.6); WHITE BLOOD COUNT 6.7 K/mm3 (4.0-10.0)
[2021-10-12 08:38] LABS: BLOOD UREA NITROGEN 36.2 mg/dL (7-18); CALCIUM 8.6 mg/dL (8.5-10.1)
[2021-10-12 08:43] LABS: CREATININE 1.6 mg/dL (0.55-1.3)
[2021-10-12] MEDS: POTASSIUM CHLORIDE TABS 20 MEQ TABLET.ER (FP) PO SCH (09:45)
[2021-10-12] MEDS: POLYETHYLENE GLYCOL (HEALTHYLAX) 3350 17 GM PACKET PO SCH ×2 (09:45→21:41)
[2021-10-12] MEDS: LISINOPRIL 10 MG TABLET PO SCH (09:46)
[2021-10-12] MEDS: APIXABAN 5 MG TABLET PO SCH ×2 (09:47→21:36)
[2021-10-12] MEDS: DONEPEZIL HCL 10 MG TABLET (FP) PO SCH ×2 (09:47→21:36)
[2021-10-12] MEDS: NYSTATIN 100,000 UNIT/GM TOPICAL CREAM 15 GM TUBE TP SCH ×2 (09:48→21:41)
[2021-10-13] MEDS ORDERED: FUROSEMIDE 20 MG TABLET (FP) PO SCH (06:00)
[2021-10-13] MEDS: GABAPENTIN 300 MG CAPSULE PO SCH ×2 (06:16→14:27)
[2021-10-13] MEDS: POTASSIUM CHLORIDE TABS 20 MEQ TABLET.ER (FP) PO SCH (10:15)
[2021-10-13] MEDS: APIXABAN 5 MG TABLET PO SCH (10:16)
[2021-10-13] MEDS: DONEPEZIL HCL 10 MG TABLET (FP) PO SCH (10:16)
[2021-10-13] MEDS: POLYETHYLENE GLYCOL (HEALTHYLAX) 3350 17 GM PACKET PO SCH (10:17)
[2021-10-13] MEDS: NYSTATIN 100,000 UNIT/GM TOPICAL CREAM 15 GM TUBE TP SCH (11:17)
[2021-10-13 14:47] VITALS: BP 146/91
[2021-10-13 16:26] VITALS: PULSE 89; TEMP 98.2
[2021-10-14] MEDS ORDERED: FUROSEMIDE 20 MG TABLET (FP) PO SCH (06:00)
== END 2021-10-13 16:37 | disposition home or self-care (01) | DRG 291 ==
LOC: JER 22:58 → JERBED 10-10 01:48 → J8W 10-10 15:40
PROVIDERS: ADMIT Internal Medicine; ATTEND Internal Medicine
DX: I13.0 Hypertensive heart and chronic kidney disease with heart failure and stage 1 through stage 4 chronic kidney disease, or unspecified chronic kidney disease (principal); I50.33 Acute on chronic diastolic (congestive) heart failure; N18.9 Chronic kidney disease, unspecified; I25.10 Atherosclerotic heart disease of native coronary artery without angina pectoris; I48.91 Unspecified atrial fibrillation; J44.9 Chronic obstructive pulmonary disease, unspecified; F41.9 Anxiety disorder, unspecified; E78.5 Hyperlipidemia, unspecified; K21.9 Gastro-esophageal reflux disease without esophagitis; E66.9 Obesity, unspecified; Z68.36 Body mass index [BMI] 36.0-36.9, adult
CPT/HCPCS: 36415; 71045-TC-FY; 80048; 80053; 80061; 81003; 82728; 83036; 83540; 83550; 83735; 83880; 84100; 84443; 84484; 85025; 85027; 87086; 87804; 93005; 93010; 93306-TC; 93970-TC; 94761; 97116-GP; 97161-GP; 99285-25; C9803-CS; U0003; U0005

== ENCOUNTER 2022-03-27 00:08 | Inpatient (IN) | payer OTHER ==
[2022-03-27 00:29] VITALS: BMI 41.0
[2022-03-27] MEDS ORDERED: ACETAMINOPHEN 1000 MG/100 ML BAG IVPB ONE (00:45)
[2022-03-27] MEDS ORDERED: PIPERACILLIN/TAZOB 3.375 GM 3.375 GM in DEXTROSE 5%-WATER - 50 ML IVPB ONE (01:11)
[2022-03-27] MEDS ORDERED: ACETAMINOPHEN INJECTION 100 ML IVPB ONE (01:11)
[2022-03-27 01:12] LABS: BASO % 0.7 % (0-2.0); EOS % 1.7 % (0-4.5); HEMATOCRIT 42.1 % (32.4-45.2); HEMOGLOBIN 13.9 GM/dL (10.7-15.3); LYMPH % 26.8 % (8-40); MCH 31.5 pg (25.7-33.7); MEAN CELL VOLUME 95.4 fl (80-96); MEAN PLT VOLUME 7.6 fl (7.5-11.1); MONO % 7.5 % (3.8-10.2); NEUT % 63.3 % (42.8-82.8); PLATELET COUNT 161 10^3/uL (134-434); RBC 4.42 M/mm3 (3.60-5.2); RDW 14.6 % (11.6-15.6); WHITE BLOOD COUNT 6.2 K/mm3 (4.0-10.0)
[2022-03-27] MEDS ORDERED: FUROSEMIDE 40 MG/4 ML INJECTABLE VIAL IVPUSH ONE ×2 (01:12→02:06)
[2022-03-27 01:15] LABS: INR 1.08 (0.83-1.09); PROTHROMBIN TIME (PATIENT) 12.4 SEC (9.7-13.0)
[2022-03-27 01:18] LABS: ACTIVATED PTT 33.8 SECONDS (25.2-36.5)
[2022-03-27 01:30] LABS: BLOOD UREA NITROGEN 40.2 mg/dL (7-18); CALCIUM 8.6 mg/dL (8.5-10.1)
[2022-03-27 01:31] LABS: ALBUMIN 3.4 g/dl (3.4-5.0)
[2022-03-27 01:34] LABS: CREATININE 1.3 mg/dL (0.55-1.3)
[2022-03-27 01:35] LABS: BILIRUBIN,TOTAL 0.6 mg/dL (0.2-1); TOT PROT 7.2 g/dl (6.4-8.2)
[2022-03-27] MEDS ORDERED: FUROSEMIDE 40 MG/4 ML INJECTABLE VIAL ONE ×2 (01:37→05:58)
[2022-03-27 01:38] LABS: N-TERMINAL BNP 6830.9 pg/ml (5-450)
[2022-03-27 01:42] LABS: VENOUS BASE EXCESS -2.2 mmol/L (-2-2); VENOUS O2 SATURATION 67.5 % (70-80); VENOUS PCO2 48.3 mmHg (38-52); VENOUS PH 7.32 (7.310-7.410)
[2022-03-27] MEDS ORDERED: PIPERACILLIN/TAZOB 3.375 GM 3.375 GM/50 ML BAG IVPB ONE (02:25)
[2022-03-27 02:40] LABS: EPI CELLS 10 /uL (0-25.1); HYALINE CASTS 0 /uL (0-3.1); URINE APPEARANCE CLEAR; URINE BACTERIA 156 /uL (0-1359); URINE BILIRUBIN NEGATIVE (NEGATIVE); URINE COLOR YELLOW; URINE GLUCOSE (UA) NEGATIVE (NEGATIVE); URINE KETONE NEGATIVE (NEGATIVE); URINE LEUK ESTERASE NEGATIVE (NEGATIVE); URINE NITRITE NEGATIVE (NEGATIVE); URINE PROTEIN 2+ (NEGATIVE); URINE RBC 16 /uL (0-23.9); URINE UROBILINOGEN 0.2 mg/dL (0.2-1.0); URINE WBC 10 /uL (0-25.8)
[2022-03-27] MEDS ORDERED: APIXABAN 5 MG TABLET ONE (04:05)
[2022-03-27] MEDS: APIXABAN 5 MG TABLET PO SCH ×3 (04:09→21:11)
[2022-03-27] MEDS ORDERED: FUROSEMIDE 40 MG/4 ML INJECTABLE VIAL IVPUSH SCH (07:00)
[2022-03-27 08:31] LABS: CALCIUM 8.8 mg/dL (8.5-10.1)
[2022-03-27 08:32] LABS: ALBUMIN 3.6 g/dl (3.4-5.0); MAGNESIUM 2.2 mg/dL (1.8-2.4)
[2022-03-27 08:35] LABS: CREATININE 1.4 mg/dL (0.55-1.3); PHOSPHOROUS 4.4 mg/dL (2.5-4.9)
[2022-03-27 08:36] LABS: BILIRUBIN,TOTAL 0.9 mg/dL (0.2-1); TOT PROT 7.4 g/dl (6.4-8.2)
[2022-03-27 08:37] LABS: BASO % 0.6 % (0-2.0); HEMATOCRIT 43.5 % (32.4-45.2); HEMOGLOBIN 14.6 GM/dL (10.7-15.3); LYMPH % 30.5 % (8-40); MCH 31.9 pg (25.7-33.7); MCHC 33.6 g/dl (32.0-36.0); MEAN CELL VOLUME 94.8 fl (80-96); MEAN PLT VOLUME 7.5 fl (7.5-11.1); MONO % 7.1 % (3.8-10.2); NEUT % 59.8 % (42.8-82.8); PLATELET COUNT 156 10^3/uL (134-434); RBC 4.59 M/mm3 (3.60-5.2); RDW 14.4 % (11.6-15.6); WHITE BLOOD COUNT 5.9 K/mm3 (4.0-10.0)
[2022-03-27] MEDS ORDERED: GABAPENTIN 100 MG CAPSULE PO ONE (11:02)
[2022-03-27] MEDS: METHYL SALICYLATE/MENTHOL OINT 30 GM TUBE TP SCH ×2 (12:41→21:11)
[2022-03-27] MEDS ORDERED: GABAPENTIN 100 MG CAPSULE PO SCH (14:00)
[2022-03-27] MEDS: FUROSEMIDE 40 MG/4 ML INJECTABLE VIAL IVPUSH SCH (15:09)
[2022-03-27] MEDS ORDERED: ALBUTEROL SO4 2.5/IPRATROPIUM 0.5 INH SOL 3 ML VIAL.NEB. NEB PRN (17:37)
[2022-03-27] MEDS ORDERED: ALBUTEROL SO4 HFA INHALER IH PRN (17:42)
[2022-03-27] MEDS: SPIRONOLACTONE 25 MG TABLET PO SCH (18:12)
[2022-03-27] MEDS ORDERED: METOPROLOL TARTRATE 50 MG TABLET (FP) PO ONE (18:42)
[2022-03-27] MEDS ORDERED: hydrALAZINE HCL 20 MG/ML VIAL IVPUSH PRN (18:43)
[2022-03-27] MEDS: DONEPEZIL HCL 5 MG TABLET (FP) PO SCH (21:10)
[2022-03-27] MEDS: ATORVASTATIN CA 40 MG TABLET (FP) PO SCH (21:11)
[2022-03-27] MEDS: GABAPENTIN 300 MG CAPSULE PO SCH (21:11)
[2022-03-28] MEDS: FUROSEMIDE 40 MG/4 ML INJECTABLE VIAL IVPUSH SCH (06:53)
[2022-03-28] MEDS: GABAPENTIN 300 MG CAPSULE PO SCH ×3 (06:53→21:33)
[2022-03-28] MEDS: SPIRONOLACTONE 25 MG TABLET PO SCH (09:52)
[2022-03-28] MEDS: DONEPEZIL HCL 5 MG TABLET (FP) PO SCH ×2 (09:52→21:37)
[2022-03-28] MEDS: APIXABAN 5 MG TABLET PO SCH ×2 (09:52→21:33)
[2022-03-28] MEDS ORDERED: SACUBITRIL/VALSARTAN 24 MG-26 MG TABLET PO SCH (10:30)
[2022-03-28] MEDS: ISOSORBIDE DINITRATE 5 MG TABLET PO SCH ×2 (11:23→14:40)
[2022-03-28] MEDS ORDERED: hydrALAZINE HCL 10 MG TABLET PO SCH (11:45)
[2022-03-28 13:09] LABS: BASO % 0.6 % (0-2.0); EOS % 1.5 % (0-4.5); HEMATOCRIT 46.5 % (32.4-45.2); HEMOGLOBIN 15.7 GM/dL (10.7-15.3); LYMPH % 21.4 % (8-40); MCH 32.2 pg (25.7-33.7); MCHC 33.8 g/dl (32.0-36.0); MEAN CELL VOLUME 95.2 fl (80-96); MEAN PLT VOLUME 7.7 fl (7.5-11.1); MONO % 9.2 % (3.8-10.2); NEUT % 67.3 % (42.8-82.8); PLATELET COUNT 208 10^3/uL (134-434); RBC 4.88 M/mm3 (3.60-5.2); RDW 14.3 % (11.6-15.6)
[2022-03-28 13:59] LABS: ALBUMIN 3.6 g/dl (3.4-5.0); BLOOD UREA NITROGEN 44.2 mg/dL (7-18); CALCIUM 8.8 mg/dL (8.5-10.1)
[2022-03-28 14:04] LABS: CREATININE 1.7 mg/dL (0.55-1.3); MAGNESIUM 2.4 mg/dL (1.8-2.4); PHOSPHOROUS 5.6 mg/dL (2.5-4.9)
[2022-03-28 14:05] LABS: BILIRUBIN,TOTAL 0.9 mg/dL (0.2-1); TOT PROT 7.6 g/dl (6.4-8.2)
[2022-03-28] MEDS: hydrALAZINE HCL 10 MG TABLET PO SCH ×2 (14:47→21:33)
[2022-03-28] MEDS: METHYL SALICYLATE/MENTHOL OINT 30 GM TUBE TP SCH ×2 (19:28→21:37)
[2022-03-28] MEDS: SACUBITRIL/VALSARTAN 24 MG-26 MG TABLET PO SCH (21:33)
[2022-03-28] MEDS: ATORVASTATIN CA 40 MG TABLET (FP) PO SCH (21:33)
[2022-03-29] MEDS: GABAPENTIN 300 MG CAPSULE PO SCH ×3 (06:26→21:22)
[2022-03-29 07:37] LABS: CALCIUM 8.8 mg/dL (8.5-10.1)
[2022-03-29 07:38] LABS: ALBUMIN 3.3 g/dl (3.4-5.0); BLOOD UREA NITROGEN 51.3 mg/dL (7-18); MAGNESIUM 2.9 mg/dL (1.8-2.4)
[2022-03-29 07:40] LABS: TOT PROT 7.3 g/dl (6.4-8.2)
[2022-03-29 08:18] LABS: BASO % 0.4 % (0-2.0); EOS % 1.4 % (0-4.5); HEMATOCRIT 49.3 % (32.4-45.2); HEMOGLOBIN 16.1 GM/dL (10.7-15.3); LYMPH % 25.2 % (8-40); MCHC 32.7 g/dl (32.0-36.0); MEAN CELL VOLUME 94.9 fl (80-96); MEAN PLT VOLUME 8.1 fl (7.5-11.1); MONO % 8.5 % (3.8-10.2); NEUT % 64.5 % (42.8-82.8); PLATELET COUNT 179 10^3/uL (134-434); RBC 5.19 M/mm3 (3.60-5.2); RDW 14.1 % (11.6-15.6)
[2022-03-29] MEDS: SPIRONOLACTONE 25 MG TABLET PO SCH (09:28)
[2022-03-29] MEDS: ISOSORBIDE DINITRATE 5 MG TABLET PO SCH ×2 (09:29→12:47)
[2022-03-29] MEDS: SACUBITRIL/VALSARTAN 24 MG-26 MG TABLET PO SCH ×2 (09:29→21:23)
[2022-03-29] MEDS: hydrALAZINE HCL 10 MG TABLET PO SCH ×2 (09:29→21:23)
[2022-03-29] MEDS: APIXABAN 5 MG TABLET PO SCH ×2 (09:29→21:23)
[2022-03-29] MEDS: DONEPEZIL HCL 5 MG TABLET (FP) PO SCH ×2 (09:29→22:00)
[2022-03-29] MEDS ORDERED: FUROSEMIDE 40 MG/4 ML INJECTABLE VIAL IVPUSH SCH (10:00)
[2022-03-29] MEDS: METHYL SALICYLATE/MENTHOL OINT 30 GM TUBE TP SCH ×2 (12:00→21:23)
[2022-03-29] MEDS: ATORVASTATIN CA 40 MG TABLET (FP) PO SCH (21:22)
[2022-03-30] MEDS: GABAPENTIN 300 MG CAPSULE PO SCH ×3 (06:33→21:00)
[2022-03-30 07:22] LABS: BASO % 0.4 % (0-2.0); EOS % 1.3 % (0-4.5); HEMATOCRIT 47.3 % (32.4-45.2); HEMOGLOBIN 15.4 GM/dL (10.7-15.3); LYMPH % 25.1 % (8-40); MCHC 32.6 g/dl (32.0-36.0); MEAN CELL VOLUME 95.2 fl (80-96); MEAN PLT VOLUME 7.9 fl (7.5-11.1); MONO % 10.3 % (3.8-10.2); NEUT % 62.9 % (42.8-82.8); PLATELET COUNT 192 10^3/uL (134-434); RBC 4.96 M/mm3 (3.60-5.2); RDW 14.1 % (11.6-15.6); WHITE BLOOD COUNT 9.5 K/mm3 (4.0-10.0)
[2022-03-30 07:36] LABS: CALCIUM 8.1 mg/dL (8.5-10.1)
[2022-03-30 07:37] LABS: ALBUMIN 3.2 g/dl (3.4-5.0); BLOOD UREA NITROGEN 64.2 mg/dL (7-18); MAGNESIUM 2.9 mg/dL (1.8-2.4)
[2022-03-30 07:39] LABS: CREATININE 2.1 mg/dL (0.55-1.3)
[2022-03-30] MEDS: ISOSORBIDE DINITRATE 5 MG TABLET PO SCH ×2 (08:39→13:42)
[2022-03-30] MEDS: ACETAMINOPHEN 1000 MG/100 ML BAG IVPB PRN (09:30)
[2022-03-30] MEDS: DONEPEZIL HCL 5 MG TABLET (FP) PO SCH ×2 (10:46→21:48)
[2022-03-30] MEDS: METHYL SALICYLATE/MENTHOL OINT 30 GM TUBE TP SCH ×2 (10:46→21:00)
[2022-03-30] MEDS: SPIRONOLACTONE 25 MG TABLET PO SCH (10:46)
[2022-03-30] MEDS: SACUBITRIL/VALSARTAN 24 MG-26 MG TABLET PO SCH ×2 (10:46→21:00)
[2022-03-30] MEDS: APIXABAN 5 MG TABLET PO SCH ×2 (10:46→21:00)
[2022-03-30] MEDS: hydrALAZINE HCL 10 MG TABLET PO SCH ×2 (10:46→21:00)
[2022-03-30] MEDS ORDERED: SODIUM CHLORIDE 1,000 ML IV SCH (16:30)
[2022-03-30] MEDS: ATORVASTATIN CA 40 MG TABLET (FP) PO SCH (21:00)
[2022-03-31] MEDS: GABAPENTIN 300 MG CAPSULE PO SCH ×3 (05:22→21:07)
[2022-03-31 07:35] LABS: BASO % 0.6 % (0-2.0); EOS % 1.9 % (0-4.5); HEMATOCRIT 46.1 % (32.4-45.2); HEMOGLOBIN 15.3 GM/dL (10.7-15.3); LYMPH % 23.9 % (8-40); MCH 31.5 pg (25.7-33.7); MCHC 33.1 g/dl (32.0-36.0); MEAN CELL VOLUME 95.2 fl (80-96); MEAN PLT VOLUME 8.1 fl (7.5-11.1); MONO % 10.2 % (3.8-10.2); NEUT % 63.4 % (42.8-82.8); PLATELET COUNT 167 10^3/uL (134-434); RBC 4.84 M/mm3 (3.60-5.2); RDW 14.3 % (11.6-15.6); WHITE BLOOD COUNT 7.8 K/mm3 (4.0-10.0)
[2022-03-31 07:49] LABS: BLOOD UREA NITROGEN 66.8 mg/dL (7-18); CALCIUM 7.7 mg/dL (8.5-10.1)
[2022-03-31 07:51] LABS: PHOSPHOROUS 4.8 mg/dL (2.5-4.9)
[2022-03-31 07:54] LABS: TOT PROT 6.7 g/dl (6.4-8.2)
[2022-03-31] MEDS: ISOSORBIDE DINITRATE 5 MG TABLET PO SCH ×2 (08:33→13:20)
[2022-03-31] MEDS: DONEPEZIL HCL 5 MG TABLET (FP) PO SCH ×2 (09:50→21:07)
[2022-03-31] MEDS: APIXABAN 5 MG TABLET PO SCH ×2 (09:50→21:07)
[2022-03-31] MEDS: hydrALAZINE HCL 10 MG TABLET PO SCH ×2 (09:50→21:07)
[2022-03-31] MEDS: SPIRONOLACTONE 25 MG TABLET PO SCH (09:50)
[2022-03-31] MEDS: METHYL SALICYLATE/MENTHOL OINT 30 GM TUBE TP SCH ×2 (09:50→21:07)
[2022-03-31] MEDS: SACUBITRIL/VALSARTAN 24 MG-26 MG TABLET PO SCH ×2 (09:50→21:07)
[2022-03-31] MEDS: ACETAMINOPHEN 1000 MG/100 ML BAG IVPB PRN (09:51)
[2022-03-31] MEDS ORDERED: SODIUM CHLORIDE 1,000 ML IV SCH (12:52)
[2022-03-31] MEDS: ATORVASTATIN CA 40 MG TABLET (FP) PO SCH (21:07)
[2022-03-31] MEDS: ACETAMINOPHEN 325 MG TABLET (FP) PO PRN (22:18)
[2022-04-01] MEDS: GABAPENTIN 300 MG CAPSULE PO SCH ×3 (06:27→21:00)
[2022-04-01] MEDS: ACETAMINOPHEN 325 MG TABLET (FP) PO PRN ×3 (06:27→21:00)
[2022-04-01 07:27] LABS: BASO % 0.4 % (0-2.0); EOS % 1.4 % (0-4.5); HEMATOCRIT 44.3 % (32.4-45.2); HEMOGLOBIN 14.5 GM/dL (10.7-15.3); LYMPH % 27.5 % (8-40); MCH 31.3 pg (25.7-33.7); MCHC 32.8 g/dl (32.0-36.0); MEAN CELL VOLUME 95.5 fl (80-96); MEAN PLT VOLUME 7.9 fl (7.5-11.1); MONO % 11.6 % (3.8-10.2); NEUT % 59.1 % (42.8-82.8); PLATELET COUNT 173 10^3/uL (134-434); RBC 4.64 M/mm3 (3.60-5.2); RDW 14.1 % (11.6-15.6); WHITE BLOOD COUNT 6.9 K/mm3 (4.0-10.0)
[2022-04-01 08:03] LABS: ALBUMIN 2.8 g/dl (3.4-5.0); BILIRUBIN,TOTAL 0.9 mg/dL (0.2-1); BLOOD UREA NITROGEN 48.9 mg/dL (7-18); CALCIUM 7.7 mg/dL (8.5-10.1); CREATININE 1.3 mg/dL (0.55-1.3); TOT PROT 6.4 g/dl (6.4-8.2)
[2022-04-01] MEDS: ISOSORBIDE DINITRATE 5 MG TABLET PO SCH ×2 (08:47→12:48)
[2022-04-01] MEDS: hydrALAZINE HCL 10 MG TABLET PO SCH ×2 (10:05→20:59)
[2022-04-01] MEDS: APIXABAN 5 MG TABLET PO SCH ×2 (10:05→21:00)
[2022-04-01] MEDS: SPIRONOLACTONE 25 MG TABLET PO SCH (10:05)
[2022-04-01] MEDS: DONEPEZIL HCL 5 MG TABLET (FP) PO SCH ×2 (10:05→20:59)
[2022-04-01] MEDS: METHYL SALICYLATE/MENTHOL OINT 30 GM TUBE TP SCH ×2 (10:05→21:00)
[2022-04-01] MEDS: SACUBITRIL/VALSARTAN 24 MG-26 MG TABLET PO SCH ×2 (10:05→21:00)
[2022-04-01] MEDS: LIDOCAINE 5% TOPICAL PATCH TP SCH (13:50)
[2022-04-01] MEDS: LIDOCAINE PATCH REMOVAL MC SCH (21:00)
[2022-04-01] MEDS: ATORVASTATIN CA 40 MG TABLET (FP) PO SCH (21:00)
[2022-04-02] MEDS: GABAPENTIN 300 MG CAPSULE PO SCH ×3 (06:04→21:09)
[2022-04-02 07:57] LABS: BASO % 0.7 % (0-2.0); EOS % 2.9 % (0-4.5); HEMOGLOBIN 14.8 GM/dL (10.7-15.3); LYMPH % 34.9 % (8-40); MCH 31.3 pg (25.7-33.7); MEAN PLT VOLUME 8.1 fl (7.5-11.1); MONO % 8.8 % (3.8-10.2); NEUT % 52.7 % (42.8-82.8); PLATELET COUNT 191 10^3/uL (134-434); RBC 4.74 M/mm3 (3.60-5.2); RDW 14.1 % (11.6-15.6); WHITE BLOOD COUNT 5.3 K/mm3 (4.0-10.0)
[2022-04-02 08:11] LABS: CALCIUM 8.1 mg/dL (8.5-10.1)
[2022-04-02 08:12] LABS: ALBUMIN 2.8 g/dl (3.4-5.0); BLOOD UREA NITROGEN 47.2 mg/dL (7-18); MAGNESIUM 2.9 mg/dL (1.8-2.4)
[2022-04-02 08:15] LABS: CREATININE 1.4 mg/dL (0.55-1.3)
[2022-04-02 08:17] LABS: BILIRUBIN,TOTAL 0.6 mg/dL (0.2-1); TOT PROT 6.5 g/dl (6.4-8.2)
[2022-04-02] MEDS: ISOSORBIDE DINITRATE 5 MG TABLET PO SCH ×2 (08:34→12:42)
[2022-04-02] MEDS: hydrALAZINE HCL 10 MG TABLET PO SCH ×2 (10:29→21:09)
[2022-04-02] MEDS: DONEPEZIL HCL 5 MG TABLET (FP) PO SCH ×2 (10:29→21:09)
[2022-04-02] MEDS: APIXABAN 5 MG TABLET PO SCH ×2 (10:29→21:09)
[2022-04-02] MEDS: METHYL SALICYLATE/MENTHOL OINT 30 GM TUBE TP SCH ×2 (10:29→21:10)
[2022-04-02] MEDS: SPIRONOLACTONE 25 MG TABLET PO SCH (10:29)
[2022-04-02] MEDS: SACUBITRIL/VALSARTAN 24 MG-26 MG TABLET PO SCH ×2 (10:29→21:09)
[2022-04-02] MEDS: LIDOCAINE 5% TOPICAL PATCH TP SCH (10:30)
[2022-04-02] MEDS: ACETAMINOPHEN 325 MG TABLET (FP) PO PRN ×2 (12:41→21:30)
[2022-04-02] MEDS: BACITRACIN 15 GM TUBE TOPICAL OINTMENT TP SCH ×2 (20:38→21:09)
[2022-04-02] MEDS: ATORVASTATIN CA 40 MG TABLET (FP) PO SCH (21:09)
[2022-04-02] MEDS: LIDOCAINE PATCH REMOVAL MC SCH (21:10)
[2022-04-03 03:08] VITALS: RESP 18
[2022-04-03] MEDS: GABAPENTIN 300 MG CAPSULE PO SCH ×2 (05:52→16:31)
[2022-04-03] MEDS: ISOSORBIDE DINITRATE 5 MG TABLET PO SCH ×2 (09:28→16:31)
[2022-04-03] MEDS: hydrALAZINE HCL 10 MG TABLET PO SCH (09:28)
[2022-04-03] MEDS: SPIRONOLACTONE 25 MG TABLET PO SCH (09:28)
[2022-04-03] MEDS: DONEPEZIL HCL 5 MG TABLET (FP) PO SCH (09:29)
[2022-04-03] MEDS: BACITRACIN 15 GM TUBE TOPICAL OINTMENT TP SCH (09:29)
[2022-04-03] MEDS: APIXABAN 5 MG TABLET PO SCH (09:30)
[2022-04-03] MEDS: LIDOCAINE 5% TOPICAL PATCH TP SCH (09:30)
[2022-04-03] MEDS: METHYL SALICYLATE/MENTHOL OINT 30 GM TUBE TP SCH (09:30)
[2022-04-03] MEDS: SACUBITRIL/VALSARTAN 24 MG-26 MG TABLET PO SCH (09:30)
[2022-04-03 13:18] VITALS: TEMP 98.1
[2022-04-03 17:42] VITALS: BP 124/87; PULSE 84
== END 2022-04-03 18:00 | DRG 291 ==
LOC: JER 00:08 → JERBED 00:50 → J2W 10:05
PROVIDERS: ADMIT Internal Medicine; ATTEND Nurse Practitioner Family
DX: I13.0 Hypertensive heart and chronic kidney disease with heart failure and stage 1 through stage 4 chronic kidney disease, or unspecified chronic kidney disease (principal); I50.23 Acute on chronic systolic (congestive) heart failure; J44.0 Chronic obstructive pulmonary disease with (acute) lower respiratory infection; N17.9 Acute kidney failure, unspecified; Z68.41 Body mass index [BMI] 40.0-44.9, adult; J44.9 Chronic obstructive pulmonary disease, unspecified; E66.01 Morbid (severe) obesity due to excess calories; N18.9 Chronic kidney disease, unspecified; E78.5 Hyperlipidemia, unspecified; I25.10 Atherosclerotic heart disease of native coronary artery without angina pectoris; G47.30 Sleep apnea, unspecified; R60.0 Localized edema; R25.2 Cramp and spasm; F41.8 Other specified anxiety disorders; Z79.01 Long term (current) use of anticoagulants; I48.91 Unspecified atrial fibrillation
CPT/HCPCS: 0241U-QW; 36415; 71045-TC-FY; 71275-TC; 76775-TC; 80053; 81003; 82550; 82553; 82803; 82962; 83735; 83880; 84100; 84484; 85025; 85610; 85730; 86038; 86160; 86803; 87086; 87340; 93005; 93010; 93306-TC; 93970-TC; 93971-TC; 94010; 97116-GP; 97162-GP; 99285-25; C9803-CS; Q9967; U0003; U0005

== ENCOUNTER 2022-09-27 02:11 | Inpatient (IN) | payer OTHER ==
[2022-09-27 02:31] VITALS: BMI 41.8
[2022-09-27 03:39] LABS: BASO % 0.4 % (0-2.0); HEMATOCRIT 43.9 % (32.4-45.2); HEMOGLOBIN 14.9 GM/dL (10.7-15.3); LYMPH % 25.8 % (8-40); MCH 32.2 pg (25.7-33.7); MEAN CELL VOLUME 94.7 fl (80-96); MEAN PLT VOLUME 7.7 fl (7.5-11.1); MONO % 9.2 % (3.8-10.2); NEUT % 63.6 % (42.8-82.8); PLATELET COUNT 182 10^3/uL (134-434); RBC 4.64 M/mm3 (3.60-5.2); RDW 12.9 % (11.6-15.6); WHITE BLOOD COUNT 7.2 K/mm3 (4.0-10.0)
[2022-09-27 03:52] LABS: CALCIUM 8.7 mg/dL (8.5-10.1)
[2022-09-27 03:53] LABS: ALBUMIN 3.8 g/dl (3.4-5.0); BLOOD UREA NITROGEN 25.7 mg/dL (7-18); MAGNESIUM 2.4 mg/dL (1.8-2.4)
[2022-09-27 03:55] LABS: CREATININE 1.5 mg/dL (0.55-1.3); INR 1.12 (0.83-1.09); PHOSPHOROUS 3.2 mg/dL (2.5-4.9)
[2022-09-27 03:57] LABS: ACTIVATED PTT 32.4 SECONDS (25.2-36.5); BILIRUBIN,TOTAL 0.6 mg/dL (0.2-1); TOT PROT 7.8 g/dl (6.4-8.2)
[2022-09-27 04:01] LABS: N-TERMINAL BNP 3351.6 pg/ml (5-450)
[2022-09-27] MEDS ORDERED: NYSTATIN POWDER 100,000 UNITS/GM - 15 GM TOPICAL POWDER TP ONE (04:03)
[2022-09-27] MEDS ORDERED: FUROSEMIDE 40 MG/4 ML INJECTABLE VIAL IVPUSH ONE ×2 (05:22→08:27)
[2022-09-27] MEDS ORDERED: FUROSEMIDE 40 MG/4 ML INJECTABLE VIAL ONE ×2 (05:29→08:55)
[2022-09-27] MEDS ORDERED: ACETAMINOPHEN 1000 MG/100 ML BAG IVPB ONE (05:40)
[2022-09-27] MEDS ORDERED: ACETAMINOPHEN INJECTION 100 ML IVPB ONE (05:41)
[2022-09-27 07:04] LABS: EPI CELLS 18 /uL (0-25.1); HYALINE CASTS 0 /uL (0-3.1); PH,URINE 5.5 (5.0-8.0); URINE APPEARANCE CLEAR; URINE BACTERIA >9,000 /uL (0-1359); URINE BILIRUBIN NEGATIVE (NEGATIVE); URINE COLOR YELLOW; URINE GLUCOSE (UA) NEGATIVE (NEGATIVE); URINE KETONE NEGATIVE (NEGATIVE); URINE LEUK ESTERASE 1+ (NEGATIVE); URINE NITRITE POSITIVE (NEGATIVE); URINE PROTEIN 2+ (NEGATIVE); URINE RBC 2 /uL (0-23.9); URINE UROBILINOGEN 0.2 mg/dL (0.2-1.0); URINE WBC 26 /uL (0-25.8)
[2022-09-27] MEDS ORDERED: LIDOCAINE 5% TOPICAL PATCH TP ONE ×2 (08:45→08:52)
[2022-09-27] MEDS ORDERED: LIDOCAINE 5% TOPICAL PATCH ONE (08:55)
[2022-09-27] MEDS ORDERED: ALBUTEROL SO4 HFA INHALER IH PRN (10:43)
[2022-09-27] MEDS ORDERED: MEROPENEM 1 GM in DEXTROSE 5%-WATER 100 ML IVPB SCH ×2 (10:45→11:00)
[2022-09-27] MEDS: APIXABAN 5 MG TABLET PO SCH ×2 (12:15→21:34)
[2022-09-27] MEDS: LISINOPRIL 20 MG TABLET PO SCH (12:15)
[2022-09-27] MEDS: CEFTRIAXONE 1 GM in DEXTROSE 5%-WATER - 50 ML IVPB SCH (14:34)
[2022-09-27] MEDS: ATORVASTATIN CA 40 MG TABLET (FP) PO SCH (21:34)
[2022-09-27] MEDS ORDERED: POLYETHYLENE GLYCOL (HEALTHYLAX) 3350 17 GM PACKET PO ONE (21:45)
[2022-09-27] MEDS ORDERED: POLYETHYLENE GLYCOL (HEALTHYLAX) 3350 17 GM PACKET PO SCH (21:45)
[2022-09-27] MEDS ORDERED: LIDOCAINE PATCH REMOVAL MC ONE (22:00)
[2022-09-27] MEDS ORDERED: LIDOCAINE PATCH REMOVAL MC SCH (22:00)
[2022-09-28 08:25] LABS: INR 1.34 (0.83-1.09); PROTHROMBIN TIME (PATIENT) 15.5 SEC (9.7-13.0)
[2022-09-28 08:26] LABS: HEMATOCRIT 44.1 % (32.4-45.2); HEMOGLOBIN 15.4 GM/dL (10.7-15.3); MCH 33.2 pg (25.7-33.7); MEAN PLT VOLUME 8.2 fl (7.5-11.1); PLATELET COUNT 151 10^3/uL (134-434); RBC 4.64 M/mm3 (3.60-5.2); RDW 12.8 % (11.6-15.6); WHITE BLOOD COUNT 5.4 K/mm3 (4.0-10.0)
[2022-09-28 08:47] LABS: ALBUMIN 3.2 g/dl (3.4-5.0); BLOOD UREA NITROGEN 25.6 mg/dL (7-18); CALCIUM 8.3 mg/dL (8.5-10.1); MAGNESIUM 2.5 mg/dL (1.8-2.4)
[2022-09-28 08:50] LABS: CREATININE 1.2 mg/dL (0.55-1.3)
[2022-09-28 08:51] LABS: BILIRUBIN,TOTAL 0.8 mg/dL (0.2-1); TOT PROT 6.8 g/dl (6.4-8.2)
[2022-09-28] MEDS: LISINOPRIL 20 MG TABLET PO SCH (09:04)
[2022-09-28] MEDS: CEFTRIAXONE 1 GM in DEXTROSE 5%-WATER - 50 ML IVPB SCH (09:04)
[2022-09-28] MEDS: APIXABAN 5 MG TABLET PO SCH ×2 (09:04→21:30)
[2022-09-28] MEDS: FUROSEMIDE 40 MG/4 ML INJECTABLE VIAL IVPUSH SCH (09:04)
[2022-09-28] MEDS: SPIRONOLACTONE 25 MG TABLET PO SCH (15:10)
[2022-09-28] MEDS ORDERED: LISINOPRIL 20 MG TABLET PO ONE (15:27)
[2022-09-28] MEDS ORDERED: ISOSORBIDE DINITRATE 5 MG TABLET PO ONE (15:35)
[2022-09-28] MEDS ORDERED: POTASSIUM CHLORIDE ORAL LIQUID 20 MEQ/15 ML PO ONE (15:40)
[2022-09-28] MEDS: NYSTATIN POWDER 100,000 UNITS/GM - 15 GM TOPICAL POWDER TP SCH (17:12)
[2022-09-28] MEDS: POLYETHYLENE GLYCOL (HEALTHYLAX) 3350 17 GM PACKET PO SCH (21:29)
[2022-09-28] MEDS: ATORVASTATIN CA 40 MG TABLET (FP) PO SCH (21:30)
[2022-09-28] MEDS: hydrALAZINE HCL 10 MG TABLET PO SCH (21:30)
[2022-09-29 08:16] LABS: MCH 32.5 pg (25.7-33.7); MEAN CELL VOLUME 95.5 fl (80-96); MEAN PLT VOLUME 7.8 fl (7.5-11.1); PLATELET COUNT 165 10^3/uL (134-434); RDW 12.8 % (11.6-15.6); WHITE BLOOD COUNT 7.4 K/mm3 (4.0-10.0)
[2022-09-29] MEDS: ISOSORBIDE DINITRATE 5 MG TABLET PO SCH ×2 (08:24→14:04)
[2022-09-29 08:43] LABS: ALBUMIN 3.3 g/dl (3.4-5.0); BLOOD UREA NITROGEN 28.7 mg/dL (7-18); CALCIUM 8.5 mg/dL (8.5-10.1); MAGNESIUM 2.5 mg/dL (1.8-2.4)
[2022-09-29 08:46] LABS: CREATININE 1.2 mg/dL (0.55-1.3); PHOSPHOROUS 3.7 mg/dL (2.5-4.9)
[2022-09-29 08:47] LABS: TOT PROT 7.1 g/dl (6.4-8.2)
[2022-09-29] MEDS: FUROSEMIDE 40 MG/4 ML INJECTABLE VIAL IVPUSH SCH (09:59)
[2022-09-29] MEDS: SPIRONOLACTONE 25 MG TABLET PO SCH (10:01)
[2022-09-29] MEDS: LISINOPRIL 20 MG TABLET PO SCH (10:01)
[2022-09-29] MEDS: hydrALAZINE HCL 10 MG TABLET PO SCH ×2 (10:02→21:46)
[2022-09-29] MEDS: POLYETHYLENE GLYCOL (HEALTHYLAX) 3350 17 GM PACKET PO SCH ×2 (10:02→21:46)
[2022-09-29] MEDS: CEFTRIAXONE 1 GM in DEXTROSE 5%-WATER - 50 ML IVPB SCH (10:02)
[2022-09-29] MEDS: APIXABAN 5 MG TABLET PO SCH ×2 (10:02→21:46)
[2022-09-29] MEDS: NYSTATIN POWDER 100,000 UNITS/GM - 15 GM TOPICAL POWDER TP SCH (10:08)
[2022-09-29] MEDS ORDERED: LIDOCAINE 5% TOPICAL PATCH TP ONE (13:11)
[2022-09-29] MEDS: AMOXICILLIN 500 MG CAPSULE (FP) PO SCH ×2 (14:26→21:46)
[2022-09-29] MEDS: ATORVASTATIN CA 40 MG TABLET (FP) PO SCH (21:46)
[2022-09-29] MEDS ORDERED: SACUBITRIL/VALSARTAN 24 MG-26 MG TABLET PO SCH (22:00)
[2022-09-29] MEDS ORDERED: LIDOCAINE PATCH REMOVAL MC SCH (22:00)
[2022-09-30] MEDS: AMOXICILLIN 500 MG CAPSULE (FP) PO SCH ×3 (06:28→21:01)
[2022-09-30] MEDS: ISOSORBIDE DINITRATE 5 MG TABLET PO SCH ×2 (09:40→14:20)
[2022-09-30] MEDS: POLYETHYLENE GLYCOL (HEALTHYLAX) 3350 17 GM PACKET PO SCH ×2 (09:41→21:01)
[2022-09-30] MEDS: SPIRONOLACTONE 25 MG TABLET PO SCH (09:41)
[2022-09-30] MEDS: hydrALAZINE HCL 10 MG TABLET PO SCH ×2 (09:41→21:01)
[2022-09-30] MEDS: FUROSEMIDE 40 MG/4 ML INJECTABLE VIAL IVPUSH SCH (09:41)
[2022-09-30] MEDS: APIXABAN 5 MG TABLET PO SCH ×2 (09:41→21:01)
[2022-09-30] MEDS: LISINOPRIL 20 MG TABLET PO SCH (09:41)
[2022-09-30] MEDS: NYSTATIN POWDER 100,000 UNITS/GM - 15 GM TOPICAL POWDER TP SCH (09:42)
[2022-09-30] MEDS: LIDOCAINE 5% TOPICAL PATCH TP SCH (14:06)
[2022-09-30] MEDS ORDERED: ACETAMINOPHEN 1000 MG/100 ML BAG IVPB ONE (20:15)
[2022-09-30] MEDS: LIDOCAINE PATCH REMOVAL MC SCH (21:01)
[2022-09-30] MEDS: ATORVASTATIN CA 40 MG TABLET (FP) PO SCH (21:01)
[2022-10-01] MEDS: AMOXICILLIN 500 MG CAPSULE (FP) PO SCH ×3 (06:12→22:02)
[2022-10-01 07:29] LABS: BASO % 0.5 % (0-2.0); EOS % 1.4 % (0-4.5); HEMATOCRIT 42.7 % (32.4-45.2); HEMOGLOBIN 14.7 GM/dL (10.7-15.3); LYMPH % 25.1 % (8-40); MCHC 34.4 g/dl (32.0-36.0); MEAN CELL VOLUME 95.7 fl (80-96); MEAN PLT VOLUME 7.9 fl (7.5-11.1); MONO % 9.4 % (3.8-10.2); NEUT % 63.6 % (42.8-82.8); PLATELET COUNT 153 10^3/uL (134-434); RBC 4.46 M/mm3 (3.60-5.2); RDW 12.9 % (11.6-15.6); WHITE BLOOD COUNT 5.4 K/mm3 (4.0-10.0)
[2022-10-01 07:49] LABS: CALCIUM 8.6 mg/dL (8.5-10.1)
[2022-10-01 07:50] LABS: ALBUMIN 3.4 g/dl (3.4-5.0); MAGNESIUM 2.9 mg/dL (1.8-2.4)
[2022-10-01 07:51] LABS: BLOOD UREA NITROGEN 48.9 mg/dL (7-18)
[2022-10-01 07:53] LABS: CREATININE 1.6 mg/dL (0.55-1.3); PHOSPHOROUS 4.8 mg/dL (2.5-4.9)
[2022-10-01 07:54] LABS: BILIRUBIN,TOTAL 1.1 mg/dL (0.2-1); TOT PROT 7.1 g/dl (6.4-8.2)
[2022-10-01] MEDS: hydrALAZINE HCL 10 MG TABLET PO SCH ×2 (09:32→21:59)
[2022-10-01] MEDS: LISINOPRIL 20 MG TABLET PO SCH (09:32)
[2022-10-01] MEDS: SPIRONOLACTONE 25 MG TABLET PO SCH (09:32)
[2022-10-01] MEDS: ISOSORBIDE DINITRATE 5 MG TABLET PO SCH ×2 (09:34→12:48)
[2022-10-01] MEDS: APIXABAN 5 MG TABLET PO SCH ×2 (09:34→22:08)
[2022-10-01] MEDS: POLYETHYLENE GLYCOL (HEALTHYLAX) 3350 17 GM PACKET PO SCH ×2 (09:34→21:58)
[2022-10-01] MEDS: FUROSEMIDE 40 MG/4 ML INJECTABLE VIAL IVPUSH SCH (09:35)
[2022-10-01] MEDS: LIDOCAINE 5% TOPICAL PATCH TP SCH (09:36)
[2022-10-01] MEDS: NYSTATIN POWDER 100,000 UNITS/GM - 15 GM TOPICAL POWDER TP SCH (09:37)
[2022-10-01] MEDS: LIDOCAINE PATCH REMOVAL MC SCH (22:00)
[2022-10-01] MEDS: GABAPENTIN 300 MG CAPSULE PO SCH (22:01)
[2022-10-01] MEDS: ATORVASTATIN CA 40 MG TABLET (FP) PO SCH (22:09)
[2022-10-02] MEDS: AMOXICILLIN 500 MG CAPSULE (FP) PO SCH ×2 (06:12→13:15)
[2022-10-02] MEDS: GABAPENTIN 300 MG CAPSULE PO SCH ×2 (06:12→13:15)
[2022-10-02] MEDS: ISOSORBIDE DINITRATE 5 MG TABLET PO SCH ×2 (08:14→12:35)
[2022-10-02 08:48] LABS: BASO % 0.6 % (0-2.0); EOS % 1.4 % (0-4.5); HEMOGLOBIN 14.9 GM/dL (10.7-15.3); LYMPH % 26.2 % (8-40); MCH 33.2 pg (25.7-33.7); MCHC 34.7 g/dl (32.0-36.0); MEAN CELL VOLUME 95.9 fl (80-96); MEAN PLT VOLUME 8.4 fl (7.5-11.1); MONO % 8.2 % (3.8-10.2); NEUT % 63.6 % (42.8-82.8); PLATELET COUNT 164 10^3/uL (134-434); RBC 4.49 M/mm3 (3.60-5.2); RDW 12.9 % (11.6-15.6)
[2022-10-02] MEDS: APIXABAN 5 MG TABLET PO SCH (09:00)
[2022-10-02] MEDS: LIDOCAINE 5% TOPICAL PATCH TP SCH (09:00)
[2022-10-02] MEDS: LISINOPRIL 20 MG TABLET PO SCH (09:00)
[2022-10-02] MEDS: SPIRONOLACTONE 25 MG TABLET PO SCH (09:00)
[2022-10-02] MEDS: hydrALAZINE HCL 10 MG TABLET PO SCH (09:00)
[2022-10-02] MEDS: POLYETHYLENE GLYCOL (HEALTHYLAX) 3350 17 GM PACKET PO SCH (09:00)
[2022-10-02] MEDS: NYSTATIN POWDER 100,000 UNITS/GM - 15 GM TOPICAL POWDER TP SCH (09:02)
[2022-10-02 09:28] LABS: CALCIUM 9.1 mg/dL (8.5-10.1)
[2022-10-02 09:29] LABS: ALBUMIN 3.6 g/dl (3.4-5.0); BLOOD UREA NITROGEN 54.4 mg/dL (7-18)
[2022-10-02 09:32] LABS: CREATININE 1.7 mg/dL (0.55-1.3); PHOSPHOROUS 5.3 mg/dL (2.5-4.9)
[2022-10-02 09:33] LABS: BILIRUBIN,TOTAL 0.8 mg/dL (0.2-1); TOT PROT 7.5 g/dl (6.4-8.2)
[2022-10-02] MEDS ORDERED: FUROSEMIDE 40 MG TABLET (FP) PO SCH (10:00)
[2022-10-02 10:11] VITALS: RESP 18
[2022-10-02 19:49] VITALS: BP 122/71; PULSE 92; TEMP 98
== END 2022-10-02 20:18 | disposition home or self-care (01) | DRG 291 ==
LOC: JER 02:11 → JERBED 05:38 → J4S 11:48
PROVIDERS: ADMIT Internal Medicine; ATTEND Internal Medicine
DX: I13.0 Hypertensive heart and chronic kidney disease with heart failure and stage 1 through stage 4 chronic kidney disease, or unspecified chronic kidney disease (principal); I50.23 Acute on chronic systolic (congestive) heart failure; N39.0 Urinary tract infection, site not specified; Z68.41 Body mass index [BMI] 40.0-44.9, adult; E66.01 Morbid (severe) obesity due to excess calories; J44.9 Chronic obstructive pulmonary disease, unspecified; I25.10 Atherosclerotic heart disease of native coronary artery without angina pectoris; E78.5 Hyperlipidemia, unspecified; N18.9 Chronic kidney disease, unspecified; I48.91 Unspecified atrial fibrillation; K59.00 Constipation, unspecified; Z91.148 Patient's other noncompliance with medication regimen for other reason
CPT/HCPCS: 0241U-QW; 36415; 71045-TC-FY; 74176-TC; 80053; 81003; 83036; 83690; 83735; 83880; 84100; 84484; 85025; 85027; 85610; 85730; 87086; 87186; 93005; 93010; 93306-TC; 93970-TC; 94761; 97116-GP; 97161-GP; 99285-25

== ENCOUNTER 2022-10-21 02:33 | Inpatient (IN) | payer OTHER ==
[2022-10-21 04:12] LABS: BASO % 0.7 % (0-2.0); EOS % 1.4 % (0-4.5); HEMATOCRIT 39.2 % (32.4-45.2); HEMOGLOBIN 13.3 GM/dL (10.7-15.3); LYMPH % 18.1 % (8-40); MCH 32.1 pg (25.7-33.7); MCHC 33.9 g/dl (32.0-36.0); MEAN CELL VOLUME 94.7 fl (80-96); MEAN PLT VOLUME 8.5 fl (7.5-11.1); NEUT % 71.8 % (42.8-82.8); PLATELET COUNT 159 10^3/uL (134-434); RBC 4.14 M/mm3 (3.60-5.2); RDW 12.7 % (11.6-15.6); WHITE BLOOD COUNT 6.3 K/mm3 (4.0-10.0)
[2022-10-21 04:20] LABS: INR 1.3 (0.83-1.09)
[2022-10-21 04:23] LABS: ACTIVATED PTT 34.5 SECONDS (25.2-36.5)
[2022-10-21 04:37] LABS: POTASSIUM 4.2 mmol/L (3.5-5.1)
[2022-10-21 04:39] LABS: ALBUMIN 3.4 g/dl (3.4-5.0); CALCIUM 8.7 mg/dL (8.5-10.1)
[2022-10-21 04:40] LABS: BLOOD UREA NITROGEN 33.8 mg/dL (7-18); MAGNESIUM 2.1 mg/dL (1.8-2.4)
[2022-10-21 04:42] LABS: CREATININE 1.4 mg/dL (0.55-1.3)
[2022-10-21 04:44] LABS: BILIRUBIN,TOTAL 0.7 mg/dL (0.2-1); TOT PROT 6.9 g/dl (6.4-8.2)
[2022-10-21 05:50] LABS: PH,URINE 5.5 (5.0-8.0); URINE APPEARANCE CLEAR; URINE BILIRUBIN NEGATIVE (NEGATIVE); URINE COLOR YELLOW; URINE GLUCOSE (UA) NEGATIVE (NEGATIVE); URINE KETONE NEGATIVE (NEGATIVE); URINE LEUK ESTERASE NEGATIVE (NEGATIVE); URINE NITRITE NEGATIVE (NEGATIVE); URINE PROTEIN NEGATIVE (NEGATIVE); URINE UROBILINOGEN 0.2 mg/dL (0.2-1.0)
[2022-10-21] MEDS ORDERED: hydrALAZINE HCL 20 MG/ML VIAL ONE (07:45)
[2022-10-21] MEDS ORDERED: TICAGRELOR 90 MG TABLET PO ONE (07:45)
[2022-10-21] MEDS ORDERED: ASPIRIN 81 MG CHEWABLE TABLETS ONE (07:46)
[2022-10-21] MEDS ORDERED: PANTOPRAZOLE SODIUM 40 MG VIAL IVPUSH ONE (07:54)
[2022-10-21] MEDS ORDERED: ALBUTEROL SO4 HFA INHALER IH PRN (10:17)
[2022-10-21] MEDS: PANTOPRAZOLE SODIUM 40 MG VIAL IVPUSH SCH ×2 (12:08→21:47)
[2022-10-21] MEDS ORDERED: PANTOPRAZOLE SODIUM 40 MG VIAL ONE (12:10)
[2022-10-21] MEDS: DEXTROSE 5%-0.45% SALINE 1,000 ML IV SCH (12:20)
[2022-10-21] MEDS ORDERED: GABAPENTIN 300 MG CAPSULE ONE (15:06)
[2022-10-21] MEDS: GABAPENTIN 300 MG CAPSULE PO SCH ×2 (15:27→21:47)
[2022-10-21] MEDS: ISOSORBIDE DINITRATE 5 MG TABLET PO SCH (15:27)
[2022-10-21 16:36] LABS: HEMATOCRIT 39.2 % (32.4-45.2); HEMOGLOBIN 13.7 GM/dL (10.7-15.3); MCHC 34.9 g/dl (32.0-36.0); MEAN CELL VOLUME 94.6 fl (80-96); MEAN PLT VOLUME 8.5 fl (7.5-11.1); PLATELET COUNT 145 10^3/uL (134-434); RBC 4.15 M/mm3 (3.60-5.2); RDW 13.1 % (11.6-15.6); WHITE BLOOD COUNT 5.1 K/mm3 (4.0-10.0)
[2022-10-21] MEDS ORDERED: ACETAMINOPHEN 1000 MG/100 ML BAG IVPB PRN (16:42)
[2022-10-21] MEDS: LIDOCAINE 5% TOPICAL PATCH TP SCH (16:51)
[2022-10-21] MEDS: ATORVASTATIN CA 40 MG TABLET (FP) PO SCH (21:47)
[2022-10-21] MEDS: LIDOCAINE PATCH REMOVAL MC SCH (21:47)
[2022-10-21] MEDS: hydrALAZINE HCL 10 MG TABLET PO SCH (21:47)
[2022-10-22] MEDS: GABAPENTIN 300 MG CAPSULE PO SCH ×3 (06:17→21:39)
[2022-10-22 07:28] LABS: EOS % 3.4 % (0-4.5); HEMATOCRIT 42.5 % (32.4-45.2); HEMOGLOBIN 14.7 GM/dL (10.7-15.3); LYMPH % 36.3 % (8-40); MCH 33.2 pg (25.7-33.7); MCHC 34.5 g/dl (32.0-36.0); MEAN PLT VOLUME 8.5 fl (7.5-11.1); MONO % 8.3 % (3.8-10.2); PLATELET COUNT 144 10^3/uL (134-434); RBC 4.42 M/mm3 (3.60-5.2); RDW 12.9 % (11.6-15.6); WHITE BLOOD COUNT 4.6 K/mm3 (4.0-10.0)
[2022-10-22 08:08] LABS: POTASSIUM 4.1 mmol/L (3.5-5.1)
[2022-10-22 08:12] LABS: CALCIUM 8.4 mg/dL (8.5-10.1)
[2022-10-22 08:13] LABS: ALBUMIN 3.4 g/dl (3.4-5.0); BLOOD UREA NITROGEN 23.7 mg/dL (7-18)
[2022-10-22 08:15] LABS: CREATININE 1.2 mg/dL (0.55-1.3)
[2022-10-22 08:16] LABS: BILIRUBIN,TOTAL 0.9 mg/dL (0.2-1); TOT PROT 6.9 g/dl (6.4-8.2)
[2022-10-22 10:36] VITALS: BMI 35.6
[2022-10-22] MEDS: PANTOPRAZOLE SODIUM 40 MG VIAL IVPUSH SCH ×2 (10:48→21:39)
[2022-10-22] MEDS: SPIRONOLACTONE 25 MG TABLET PO SCH (10:48)
[2022-10-22] MEDS: hydrALAZINE HCL 10 MG TABLET PO SCH (10:48)
[2022-10-22] MEDS: LIDOCAINE 5% TOPICAL PATCH TP SCH (10:49)
[2022-10-22] MEDS: ISOSORBIDE DINITRATE 5 MG TABLET PO SCH ×2 (10:49→14:10)
[2022-10-22] MEDS: LISINOPRIL 20 MG TABLET PO SCH (10:49)
[2022-10-22] MEDS: FUROSEMIDE 40 MG TABLET (FP) PO SCH (10:53)
[2022-10-22] MEDS: DEXTROSE 5%-0.45% SALINE 1,000 ML IV SCH (11:05)
[2022-10-22] MEDS: NYSTATIN POWDER 100,000 UNITS/GM - 15 GM TOPICAL POWDER TP SCH (12:33)
[2022-10-22] MEDS: ATORVASTATIN CA 40 MG TABLET (FP) PO SCH (21:39)
[2022-10-22] MEDS: LIDOCAINE PATCH REMOVAL MC SCH (21:46)
[2022-10-23] MEDS: GABAPENTIN 300 MG CAPSULE PO SCH ×3 (06:34→21:34)
[2022-10-23 07:33] LABS: BASO % 0.5 % (0-2.0); EOS % 2.1 % (0-4.5); HEMATOCRIT 40.2 % (32.4-45.2); HEMOGLOBIN 13.9 GM/dL (10.7-15.3); LYMPH % 31.3 % (8-40); MCH 32.7 pg (25.7-33.7); MCHC 34.5 g/dl (32.0-36.0); MEAN CELL VOLUME 94.8 fl (80-96); MEAN PLT VOLUME 9.4 fl (7.5-11.1); MONO % 9.7 % (3.8-10.2); NEUT % 56.4 % (42.8-82.8); PLATELET COUNT 124 10^3/uL (134-434); RBC 4.24 M/mm3 (3.60-5.2); RDW 12.7 % (11.6-15.6); WHITE BLOOD COUNT 6.9 K/mm3 (4.0-10.0)
[2022-10-23 07:40] LABS: POTASSIUM 4.2 mmol/L (3.5-5.1)
[2022-10-23 07:46] LABS: ALBUMIN 3.3 g/dl (3.4-5.0); BLOOD UREA NITROGEN 38.7 mg/dL (7-18); CALCIUM 8.5 mg/dL (8.5-10.1)
[2022-10-23 07:47] LABS: MAGNESIUM 2.3 mg/dL (1.8-2.4)
[2022-10-23 07:48] LABS: PHOSPHOROUS 3.9 mg/dL (2.5-4.9)
[2022-10-23 07:49] LABS: BILIRUBIN,TOTAL 0.9 mg/dL (0.2-1); CREATININE 1.7 mg/dL (0.55-1.3); TOT PROT 6.6 g/dl (6.4-8.2)
[2022-10-23] MEDS: PANTOPRAZOLE SODIUM 40 MG VIAL IVPUSH SCH ×2 (09:35→21:34)
[2022-10-23] MEDS: SPIRONOLACTONE 25 MG TABLET PO SCH (09:35)
[2022-10-23] MEDS: LISINOPRIL 20 MG TABLET PO SCH (09:35)
[2022-10-23] MEDS: FUROSEMIDE 40 MG TABLET (FP) PO SCH (09:35)
[2022-10-23] MEDS: ISOSORBIDE DINITRATE 5 MG TABLET PO SCH ×2 (09:39→13:08)
[2022-10-23] MEDS: LIDOCAINE 5% TOPICAL PATCH TP SCH (09:40)
[2022-10-23] MEDS: NYSTATIN POWDER 100,000 UNITS/GM - 15 GM TOPICAL POWDER TP SCH (09:51)
[2022-10-23] MEDS ORDERED: SODIUM CHLORIDE 250 ML IV STA (11:06)
[2022-10-23 16:20] LABS: BASO % 0.7 % (0-2.0); EOS % 2.1 % (0-4.5); HEMATOCRIT 38.2 % (32.4-45.2); HEMOGLOBIN 13.3 GM/dL (10.7-15.3); LYMPH % 27.3 % (8-40); MCH 33.1 pg (25.7-33.7); MCHC 34.8 g/dl (32.0-36.0); MEAN CELL VOLUME 95.3 fl (80-96); MEAN PLT VOLUME 8.8 fl (7.5-11.1); MONO % 8.2 % (3.8-10.2); NEUT % 61.7 % (42.8-82.8); PLATELET COUNT 133 10^3/uL (134-434); RBC 4.01 M/mm3 (3.60-5.2); RDW 13.1 % (11.6-15.6); WHITE BLOOD COUNT 6.3 K/mm3 (4.0-10.0)
[2022-10-23] MEDS: ATORVASTATIN CA 40 MG TABLET (FP) PO SCH (21:34)
[2022-10-23] MEDS: LIDOCAINE PATCH REMOVAL MC SCH (21:35)
[2022-10-24] MEDS: GABAPENTIN 300 MG CAPSULE PO SCH ×3 (05:33→21:49)
[2022-10-24 07:08] LABS: HEMATOCRIT 41.1 % (32.4-45.2); HEMOGLOBIN 14.3 GM/dL (10.7-15.3); MCHC 34.7 g/dl (32.0-36.0); MEAN CELL VOLUME 95.2 fl (80-96); MEAN PLT VOLUME 8.7 fl (7.5-11.1); PLATELET COUNT 130 10^3/uL (134-434); RBC 4.32 M/mm3 (3.60-5.2); WHITE BLOOD COUNT 5.1 K/mm3 (4.0-10.0)
[2022-10-24 07:27] LABS: POTASSIUM 4.6 mmol/L (3.5-5.1)
[2022-10-24 07:36] LABS: CALCIUM 9.1 mg/dL (8.5-10.1)
[2022-10-24 07:37] LABS: ALBUMIN 3.4 g/dl (3.4-5.0); BLOOD UREA NITROGEN 35.6 mg/dL (7-18); MAGNESIUM 2.2 mg/dL (1.8-2.4)
[2022-10-24 07:39] LABS: BILIRUBIN,TOTAL 1.1 mg/dL (0.2-1)
[2022-10-24 07:40] LABS: CREATININE 1.6 mg/dL (0.55-1.3); PHOSPHOROUS 4.1 mg/dL (2.5-4.9)
[2022-10-24] MEDS: ISOSORBIDE DINITRATE 5 MG TABLET PO SCH ×2 (09:27→16:25)
[2022-10-24] MEDS: LIDOCAINE 5% TOPICAL PATCH TP SCH (09:27)
[2022-10-24] MEDS: PANTOPRAZOLE SODIUM 40 MG VIAL IVPUSH SCH (09:27)
[2022-10-24] MEDS: NYSTATIN POWDER 100,000 UNITS/GM - 15 GM TOPICAL POWDER TP SCH (11:11)
[2022-10-24] MEDS ORDERED: KETAMINE HCL 500 MG/10 ML VIAL ONE (14:20)
[2022-10-24] MEDS: MAG HYDROX/AL HYDROX/SIMETH 30 ML UNIT-DOSE CUP PO SCH ×2 (16:25→21:49)
[2022-10-24] MEDS: PANTOPRAZOLE 40 MG TABLET PO SCH (21:49)
[2022-10-24] MEDS: ATORVASTATIN CA 40 MG TABLET (FP) PO SCH (21:49)
[2022-10-24] MEDS: LIDOCAINE PATCH REMOVAL MC SCH (21:58)
[2022-10-25] MEDS: MAG HYDROX/AL HYDROX/SIMETH 30 ML UNIT-DOSE CUP PO SCH ×3 (04:50→16:29)
[2022-10-25] MEDS: GABAPENTIN 300 MG CAPSULE PO SCH ×2 (05:44→14:21)
[2022-10-25 06:46] LABS: HEMATOCRIT 39.7 % (32.4-45.2); HEMOGLOBIN 13.9 GM/dL (10.7-15.3); MCH 33.1 pg (25.7-33.7); MEAN CELL VOLUME 94.3 fl (80-96); MEAN PLT VOLUME 8.6 fl (7.5-11.1); PLATELET COUNT 123 10^3/uL (134-434); RBC 4.21 M/mm3 (3.60-5.2); RDW 12.9 % (11.6-15.6); WHITE BLOOD COUNT 6.8 K/mm3 (4.0-10.0)
[2022-10-25 07:07] LABS: POTASSIUM 4.2 mmol/L (3.5-5.1)
[2022-10-25 07:12] LABS: CALCIUM 8.5 mg/dL (8.5-10.1)
[2022-10-25 07:13] LABS: ALBUMIN 3.3 g/dl (3.4-5.0); BLOOD UREA NITROGEN 38.9 mg/dL (7-18); MAGNESIUM 2.2 mg/dL (1.8-2.4)
[2022-10-25 07:16] LABS: CREATININE 1.7 mg/dL (0.55-1.3); PHOSPHOROUS 3.4 mg/dL (2.5-4.9)
[2022-10-25 07:20] LABS: TOT PROT 6.8 g/dl (6.4-8.2)
[2022-10-25] MEDS: ISOSORBIDE DINITRATE 5 MG TABLET PO SCH ×2 (08:43→13:56)
[2022-10-25] MEDS: PANTOPRAZOLE 40 MG TABLET PO SCH (09:40)
[2022-10-25] MEDS: LIDOCAINE 5% TOPICAL PATCH TP SCH (09:40)
[2022-10-25] MEDS: NYSTATIN POWDER 100,000 UNITS/GM - 15 GM TOPICAL POWDER TP SCH (09:44)
[2022-10-25] MEDS ORDERED: APIXABAN 5 MG TABLET PO SCH (10:00)
[2022-10-25 13:53] VITALS: RESP 20; TEMP 98.2
[2022-10-25 14:39] VITALS: BP 113/77; PULSE 90
[2022-10-25 16:07] LABS: BASO % 0.9 % (0-2.0); EOS % 1.2 % (0-4.5); HEMOGLOBIN 13.5 GM/dL (10.7-15.3); LYMPH % 18.7 % (8-40); MCH 32.8 pg (25.7-33.7); MCHC 34.6 g/dl (32.0-36.0); MEAN CELL VOLUME 94.8 fl (80-96); MONO % 9.4 % (3.8-10.2); NEUT % 69.8 % (42.8-82.8); PLATELET COUNT 126 10^3/uL (134-434); RBC 4.11 M/mm3 (3.60-5.2); RDW 12.9 % (11.6-15.6); WHITE BLOOD COUNT 6.9 K/mm3 (4.0-10.0)
== END 2022-10-25 19:44 | disposition home or self-care (01) | DRG 378 ==
LOC: JER 02:33 → JERBED 07:42 → J4W 15:28
PROVIDERS: ADMIT Internal Medicine; ATTEND Internal Medicine
PROC: 0DB78ZX Excision of Stomach, Pylorus, Via Natural or Artificial Opening Endoscopic, Diagnostic (ICD-10-PCS; 2022-10-24)
PROC: 0DB98ZX Excision of Duodenum, Via Natural or Artificial Opening Endoscopic, Diagnostic (ICD-10-PCS; principal; 2022-10-24 13:15)
DX: K25.0 Acute gastric ulcer with hemorrhage (principal); I13.0 Hypertensive heart and chronic kidney disease with heart failure and stage 1 through stage 4 chronic kidney disease, or unspecified chronic kidney disease; I50.32 Chronic diastolic (congestive) heart failure; I25.10 Atherosclerotic heart disease of native coronary artery without angina pectoris; K21.9 Gastro-esophageal reflux disease without esophagitis; E11.9 Type 2 diabetes mellitus without complications; J44.9 Chronic obstructive pulmonary disease, unspecified; I48.91 Unspecified atrial fibrillation; N18.9 Chronic kidney disease, unspecified; F03.90 Unspecified dementia, unspecified severity, without behavioral disturbance, psychotic disturbance, mood disturbance, and anxiety; E66.8 Other obesity; Z68.34 Body mass index [BMI] 34.0-34.9, adult; F41.8 Other specified anxiety disorders; G47.09 Other insomnia; I77.819 Aortic ectasia, unspecified site; I35.1 Nonrheumatic aortic (valve) insufficiency; T39.395A Adverse effect of other nonsteroidal anti-inflammatory drugs [NSAID], initial encounter
CPT/HCPCS: 0241U-QW; 36415; 71045-TC-FY; 74176-TC; 80053; 80061; 81003; 82272; 83036; 83605; 83690; 83735; 84100; 84443; 84484; 85025; 85027; 85610; 85730; 86850; 86900; 86901; 88305-TC; 93005; 93010; 94010; 97116-GP; 99285-25

== ENCOUNTER 2022-11-13 02:53 | Inpatient (IN) | payer OTHER ==
[2022-11-13 03:58] LABS: BASO % 0.8 % (0-2.0); EOS % 2.2 % (0-4.5); HEMATOCRIT 39.4 % (32.4-45.2); HEMOGLOBIN 13.2 GM/dL (10.7-15.3); LYMPH % 26.3 % (8-40); MCH 32.1 pg (25.7-33.7); MCHC 33.5 g/dl (32.0-36.0); MEAN CELL VOLUME 95.9 fl (80-96); MEAN PLT VOLUME 8.2 fl (7.5-11.1); NEUT % 61.7 % (42.8-82.8); PLATELET COUNT 171 10^3/uL (134-434); RDW 13.6 % (11.6-15.6); WHITE BLOOD COUNT 5.6 K/mm3 (4.0-10.0)
[2022-11-13 04:07] LABS: INR 1.83 (0.83-1.09); PROTHROMBIN TIME (PATIENT) 21.1 SEC (9.7-13.0)
[2022-11-13 04:09] LABS: ACTIVATED PTT 39.4 SECONDS (25.2-36.5)
[2022-11-13 04:13] LABS: POTASSIUM 4.6 mmol/L (3.5-5.1)
[2022-11-13 04:15] LABS: ALBUMIN 3.5 g/dl (3.4-5.0); CALCIUM 8.7 mg/dL (8.5-10.1)
[2022-11-13 04:16] LABS: BLOOD UREA NITROGEN 59.3 mg/dL (7-18); MAGNESIUM 2.6 mg/dL (1.8-2.4)
[2022-11-13 04:20] LABS: BILIRUBIN,TOTAL 0.6 mg/dL (0.2-1); TOT PROT 7.3 g/dl (6.4-8.2)
[2022-11-13 04:44] LABS: EPI CELLS 29 /uL (0-25.1); HYALINE CASTS 0 /uL (0-3.1); PH,URINE 5.5 (5.0-8.0); URINE APPEARANCE CLEAR; URINE BACTERIA 265 /uL (0-1359); URINE BILIRUBIN NEGATIVE (NEGATIVE); URINE COLOR YELLOW; URINE GLUCOSE (UA) NEGATIVE (NEGATIVE); URINE KETONE NEGATIVE (NEGATIVE); URINE LEUK ESTERASE 1+ (NEGATIVE); URINE NITRITE NEGATIVE (NEGATIVE); URINE PROTEIN NEGATIVE (NEGATIVE); URINE RBC 4 /uL (0-23.9); URINE WBC 26 /uL (0-25.8)
[2022-11-13] MEDS ORDERED: CEFTRIAXONE 1 GM in DEXTROSE 5%-WATER - 100 ML IVPB ONE (05:22)
[2022-11-13] MEDS ORDERED: CEFTRIAXONE 1 GM/50 ML BAG ONE (05:47)
[2022-11-13] MEDS ORDERED: ACETAMINOPHEN 1000 MG/100 ML BAG IVPB ONE (07:27)
[2022-11-13] MEDS ORDERED: ACETAMINOPHEN INJECTION 100 ML IVPB ONE (07:48)
[2022-11-13] MEDS ORDERED: ALBUTEROL SO4 HFA INHALER IH PRN (10:17)
[2022-11-13] MEDS ORDERED: POLYETHYLENE GLYCOL (HEALTHYLAX) 3350 17 GM PACKET PO PRN (10:17)
[2022-11-13] MEDS: LISINOPRIL 20 MG TABLET PO SCH (11:10)
[2022-11-13] MEDS: SPIRONOLACTONE 25 MG TABLET PO SCH (11:10)
[2022-11-13] MEDS ORDERED: LIDOCAINE 5% TOPICAL PATCH ONE (11:44)
[2022-11-13] MEDS: LIDOCAINE 5% TOPICAL PATCH TP SCH (11:48)
[2022-11-13] MEDS ORDERED: ISOSORBIDE DINITRATE 5 MG TABLET PO SCH (13:00)
[2022-11-13] MEDS: GABAPENTIN 300 MG CAPSULE PO SCH ×2 (14:11→23:07)
[2022-11-13] MEDS: ACETAMINOPHEN 500 MG TABLET (FP) PO PRN (15:24)
[2022-11-13] MEDS ORDERED: hydrALAZINE HCL 10 MG TABLET PO SCH (22:00)
[2022-11-13] MEDS: LIDOCAINE PATCH REMOVAL MC SCH (23:07)
[2022-11-13] MEDS: ATORVASTATIN CA 40 MG TABLET (FP) PO SCH (23:07)
[2022-11-13] MEDS: PANTOPRAZOLE 40 MG TABLET PO SCH (23:07)
[2022-11-13] MEDS: APIXABAN 5 MG TABLET PO SCH (23:07)
[2022-11-14] MEDS: GABAPENTIN 300 MG CAPSULE PO SCH ×3 (07:03→21:07)
[2022-11-14 07:46] LABS: BASO % 0.7 % (0-2.0); EOS % 2.4 % (0-4.5); HEMATOCRIT 37.5 % (32.4-45.2); LYMPH % 30.1 % (8-40); MCH 33.1 pg (25.7-33.7); MCHC 34.6 g/dl (32.0-36.0); MEAN CELL VOLUME 95.7 fl (80-96); MEAN PLT VOLUME 8.6 fl (7.5-11.1); MONO % 7.3 % (3.8-10.2); NEUT % 59.5 % (42.8-82.8); PLATELET COUNT 142 10^3/uL (134-434); RBC 3.91 M/mm3 (3.60-5.2); RDW 13.4 % (11.6-15.6); WHITE BLOOD COUNT 4.8 K/mm3 (4.0-10.0)
[2022-11-14 07:56] LABS: POTASSIUM 4.3 mmol/L (3.5-5.1)
[2022-11-14 08:02] LABS: CALCIUM 8.6 mg/dL (8.5-10.1)
[2022-11-14 08:03] LABS: BLOOD UREA NITROGEN 51.1 mg/dL (7-18)
[2022-11-14 08:06] LABS: CREATININE 1.5 mg/dL (0.55-1.3)
[2022-11-14] MEDS ORDERED: CEFTRIAXONE 1 GM in DEXTROSE 5%-WATER - 50 ML IVPB SCH (10:00)
[2022-11-14] MEDS: LIDOCAINE 5% TOPICAL PATCH TP SCH (10:04)
[2022-11-14] MEDS: DONEPEZIL HCL 5 MG TABLET (FP) PO SCH ×2 (10:06→21:07)
[2022-11-14] MEDS: APIXABAN 5 MG TABLET PO SCH ×2 (10:06→21:07)
[2022-11-14] MEDS: SPIRONOLACTONE 25 MG TABLET PO SCH (10:07)
[2022-11-14] MEDS: PANTOPRAZOLE 40 MG TABLET PO SCH ×2 (10:07→21:08)
[2022-11-14] MEDS: LISINOPRIL 20 MG TABLET PO SCH (10:07)
[2022-11-14] MEDS: NYSTATIN POWDER 100,000 UNITS/GM - 15 GM TOPICAL POWDER TP SCH (13:37)
[2022-11-14] MEDS: PIPERACILLIN/TAZOB 3.375 GM 3.375 GM in DEXTROSE 5%-WATER - 50 ML IVPB SCH ×2 (13:40→18:04)
[2022-11-14 15:35] VITALS: BMI 36.0
[2022-11-14] MEDS ORDERED: PHENAZOPYRIDINE HCL 100 MG TABLET (FP) PO ONE (18:44)
[2022-11-14] MEDS: ATORVASTATIN CA 40 MG TABLET (FP) PO SCH (21:07)
[2022-11-14] MEDS: LIDOCAINE PATCH REMOVAL MC SCH (21:08)
[2022-11-15] MEDS: PIPERACILLIN/TAZOB 3.375 GM 3.375 GM in DEXTROSE 5%-WATER - 50 ML IVPB SCH ×2 (02:55→11:33)
[2022-11-15] MEDS: GABAPENTIN 300 MG CAPSULE PO SCH ×3 (06:00→22:06)
[2022-11-15 07:16] LABS: BASO % 0.6 % (0-2.0); EOS % 3.1 % (0-4.5); HEMOGLOBIN 12.9 GM/dL (10.7-15.3); LYMPH % 33.2 % (8-40); MCH 32.4 pg (25.7-33.7); MCHC 33.9 g/dl (32.0-36.0); MEAN CELL VOLUME 95.7 fl (80-96); MEAN PLT VOLUME 8.3 fl (7.5-11.1); MONO % 7.8 % (3.8-10.2); NEUT % 55.3 % (42.8-82.8); PLATELET COUNT 144 10^3/uL (134-434); RBC 3.98 M/mm3 (3.60-5.2); RDW 13.3 % (11.6-15.6)
[2022-11-15 07:31] LABS: POTASSIUM 4.7 mmol/L (3.5-5.1)
[2022-11-15 07:36] LABS: BLOOD UREA NITROGEN 42.8 mg/dL (7-18); CALCIUM 8.4 mg/dL (8.5-10.1)
[2022-11-15 07:39] LABS: CREATININE 1.8 mg/dL (0.55-1.3)
[2022-11-15] MEDS: APIXABAN 5 MG TABLET PO SCH ×2 (11:00→22:07)
[2022-11-15] MEDS: PANTOPRAZOLE 40 MG TABLET PO SCH ×2 (11:00→22:06)
[2022-11-15] MEDS: LIDOCAINE 5% TOPICAL PATCH TP SCH (11:00)
[2022-11-15] MEDS: NYSTATIN POWDER 100,000 UNITS/GM - 15 GM TOPICAL POWDER TP SCH (11:00)
[2022-11-15] MEDS: SPIRONOLACTONE 25 MG TABLET PO SCH (11:00)
[2022-11-15] MEDS: DONEPEZIL HCL 5 MG TABLET (FP) PO SCH ×2 (11:00→22:06)
[2022-11-15] MEDS: LISINOPRIL 20 MG TABLET PO SCH ×2 (11:00)
[2022-11-15] MEDS: CEFTRIAXONE 1 GM in DEXTROSE 5%-WATER - 50 ML IVPB SCH (11:54)
[2022-11-15] MEDS: ATORVASTATIN CA 40 MG TABLET (FP) PO SCH (22:06)
[2022-11-15] MEDS: LIDOCAINE PATCH REMOVAL MC SCH (22:07)
[2022-11-16] MEDS: ACETAMINOPHEN 500 MG TABLET (FP) PO PRN (03:22)
[2022-11-16] MEDS: GABAPENTIN 300 MG CAPSULE PO SCH ×2 (06:10→13:01)
[2022-11-16 07:45] LABS: BASO % 0.7 % (0-2.0); EOS % 2.8 % (0-4.5); HEMOGLOBIN 12.5 GM/dL (10.7-15.3); LYMPH % 29.3 % (8-40); MCHC 34.7 g/dl (32.0-36.0); MEAN CELL VOLUME 95.2 fl (80-96); MEAN PLT VOLUME 8.3 fl (7.5-11.1); MONO % 7.9 % (3.8-10.2); NEUT % 59.3 % (42.8-82.8); PLATELET COUNT 144 10^3/uL (134-434); RBC 3.78 M/mm3 (3.60-5.2); RDW 13.7 % (11.6-15.6); WHITE BLOOD COUNT 5.2 K/mm3 (4.0-10.0)
[2022-11-16 07:59] LABS: POTASSIUM 4.4 mmol/L (3.5-5.1)
[2022-11-16 08:04] LABS: CALCIUM 8.5 mg/dL (8.5-10.1)
[2022-11-16 08:05] LABS: BLOOD UREA NITROGEN 46.3 mg/dL (7-18); MAGNESIUM 2.6 mg/dL (1.8-2.4)
[2022-11-16 08:08] LABS: CREATININE 1.6 mg/dL (0.55-1.3)
[2022-11-16] MEDS: APIXABAN 5 MG TABLET PO SCH (09:45)
[2022-11-16] MEDS: DONEPEZIL HCL 5 MG TABLET (FP) PO SCH (09:45)
[2022-11-16] MEDS: PANTOPRAZOLE 40 MG TABLET PO SCH (09:45)
[2022-11-16] MEDS: NYSTATIN POWDER 100,000 UNITS/GM - 15 GM TOPICAL POWDER TP SCH (09:46)
[2022-11-16] MEDS: LIDOCAINE 5% TOPICAL PATCH TP SCH (09:46)
[2022-11-16] MEDS: CEFTRIAXONE 1 GM in DEXTROSE 5%-WATER - 50 ML IVPB SCH (09:46)
[2022-11-16] MEDS: LISINOPRIL 20 MG TABLET PO SCH (09:46)
[2022-11-16 14:05] VITALS: BP 126/79; PULSE 89; RESP 20; TEMP 97.5
== END 2022-11-16 18:30 | disposition home or self-care (01) | DRG 690 ==
LOC: JER 02:53 → JERBED 05:15 → J7W 13:50
PROVIDERS: ADMIT Internal Medicine; ATTEND Internal Medicine
DX: N39.0 Urinary tract infection, site not specified (principal); I13.0 Hypertensive heart and chronic kidney disease with heart failure and stage 1 through stage 4 chronic kidney disease, or unspecified chronic kidney disease; N17.9 Acute kidney failure, unspecified; I50.32 Chronic diastolic (congestive) heart failure; I25.10 Atherosclerotic heart disease of native coronary artery without angina pectoris; J44.9 Chronic obstructive pulmonary disease, unspecified; N18.9 Chronic kidney disease, unspecified; E78.5 Hyperlipidemia, unspecified; I48.91 Unspecified atrial fibrillation; Z79.01 Long term (current) use of anticoagulants; N93.8 Other specified abnormal uterine and vaginal bleeding; R93.89 Abnormal findings on diagnostic imaging of other specified body structures; R51.9 Headache, unspecified; R07.89 Other chest pain
CPT/HCPCS: 0241U-QW; 36415; 71045-TC-FY; 76830-TC; 80048; 80053; 81003; 83690; 83735; 84100; 84439; 84443; 84484; 85025; 85610; 85730; 87040; 87086; 87186; 93005; 93010; 97116-GP; 97161-GP; 99285-25